=== PATIENT | female | born 1990 | race Caucasian/White ===

== ENCOUNTER → 2017-07-29 14:00 | Outpatient (CLI) | payer OTHER, SELFPAY ==
[2017-07-30 14:08] LABS: Chlamydia Trachomatis by PCR Negative (Negative); Neisserai gonorrhoeae by PCR Negative (Negative); Probe Check PASS; Sample Adequacy Control PASS; Specimen Processing Control PASS
[2017-08-01 14:28] LABS: HPV Reflexed? NOT INDICATED
== END ==
PROVIDERS: Visit Provider Obstetrics & Gynecology
DX: Z12.4 Encounter for screening for malignant neoplasm of cervix (principal); Z11.3 Encounter for screening for infections with a predominantly sexual mode of transmission
CPT/HCPCS: 87491; 87591; 88175; G0145

== ENCOUNTER → 2018-01-27 14:00 | Outpatient (CLI) | payer OTHER, SELFPAY ==
[2018-01-28 11:39] LABS: Group B Strep DNA By PCR Negative (Negative); Internal Control PASS; Probe Check PASS; Specimen Processing Control PASS
== END ==
PROVIDERS: Visit Provider Obstetrics & Gynecology
DX: Z36.85 Encounter for antenatal screening for Streptococcus B (principal)
CPT/HCPCS: 87081; 87653

== ENCOUNTER 2018-02-18 07:05 | Inpatient (IN) | payer OTHER, SELFPAY ==
[2018-02-18 07:25] VITALS: BMI 28.9
[2018-02-18 08:08] LABS: Hematocrit 34.8 % (37-47); Hemoglobin 11.9 g/dl (12.0-15.0); Mean Corp Hgb Conc 34.2 g/gl (32-36); Mean Corpuscular Hgb 30.6 pg (27.0-32.0); Mean Corpuscular Volume 89.5 fL (81-99); Mean Platelet Vol. 10.3 fl (6.2-12.0); Platelet Count 276 K/mm3 (150-450); RBC Distribution Width CV 13.2 % (11.6-14.6); Red Blood Count 3.89 M/mm3 (4.2-5.4); White Blood Count 8.7 K/mm3 (4.4-11.0)
[2018-02-18 08:09] LABS: Scan Indicated on CBC? Y/N NO
[2018-02-18] MEDS: Lactated Ringers 1,000 ML 50 ML IV (08:23)
--- NOTE | 2018-02-18 12:29 | NURSING ---
1148 Mom ask to speak with me regarding her previous and low milk supply. We discussed making sure baby remains skin to skin and we could maybe do some follow up pumping either following feedings or every couple feedings to help with raising her prolactin levels. We also discussed prior breast massage and expression to help with this as well. We do our best to help with encouraging this Mother with her feeding needs. Jose LEON
[2018-02-18] MEDS: Oxytocin 30 units/NS 500 ml 30 UNITS/500 ML IV.SOLN IV (13:57)
[2018-02-18] MEDS: Oxytocin 30 units/NS 500 ml 30 UNITS/500 ML IV.SOLN 334 UNITS IV (17:21)
--- NOTE | 2018-02-18 17:31 | PCM.OB.VAG ---
Vaginal Delivery Maternal Presentation: Elective Induction Method of Induction: Pitocin, Amniotomy Amniotic Membrane Rupture Type: Artificial Amniotic Fluid Description: Lightly stained meconium Final LEONARDO: 02/24/18 Final LEONARDO Source: US <20 weeks Gestational age: 39 Weeks and 1 Days doctor who attended delivery (if requested by OB): Lata Pulido MNCara Date of Procedure: 02/18/18 Pre-Operative Diagnosis: IUP Post-Operative Diagnosis: IUP Surgery/ Procedure Performed: Spontaneous Vaginal Delivery Type of Anesthesia: None Description of Procedure: Spontaneous vaginal delivery of a viable male infant with Apgars of 8/9 from an occiput anterior presentation with light meconium stained fluid and normal three-vessel placenta. No episiotomy or laceration. Sponge counts okay. Delivery physician: Aamir Orellana MD. Presentation: Vertex Placental Delivery Description: Spontaneous Placenta Disposition: [facility] Cord Vessel Description: 3 Vessels Cord Entanglement: None Estimated Blood Loss: 250 cc Infant A gender: Male (1 minute): 8 (5 minute): 9 Episiotomy Description: None Laceration: None Medications given after delivery: IV Pitocin Complications: None
--- NOTE | 2018-02-18 17:36 | OP.PCM_ITS ---
Vaginal Delivery Maternal Presentation: Elective Induction Method of Induction: Pitocin, Amniotomy Amniotic Membrane Rupture Type: Artificial Amniotic Fluid Description: Lightly stained meconium Final LEONARDO: 02/24/18 Final LEONARDO Source: US <20 weeks Gestational age: 39 Weeks and 1 Days doctor who attended delivery (if requested by OB): Lata Pulido NMCara Date of Procedure: 02/18/18 Pre-Operative Diagnosis: IUP Post-Operative Diagnosis: IUP Surgery/ Procedure Performed: Spontaneous Vaginal Delivery Type of Anesthesia: None Description of Procedure: Spontaneous vaginal delivery of a viable male infant with Apgars of 8/9 from an occiput anterior presentation with light meconium stained fluid and normal three-vessel placenta. No episiotomy or laceration. Sponge counts okay. Delivery physician: Aamir Orellana MD. Presentation: Vertex Placental Delivery Description: Spontaneous Placenta Disposition: [facility] Cord Vessel Description: 3 Vessels Cord Entanglement: None Estimated Blood Loss: 250 cc Infant A gender: Male (1 minute): 8 (5 minute): 9 Episiotomy Description: None Laceration: None Medications given after delivery: IV Pitocin Complications: None
--- NOTE | 2018-02-18 17:42 | PCM.DCVAG ---
Discharge Diet: No Restrictions Discharge Activity: May Shower, May Take a Tub Bath May resume sexual activity in: 4-6 weeks Additional Activity Instructions:: Nothing in the vagina for 4-6 weeks. You may return to work/school in 6 weeks. Call your doctor if you observe: Fever of 101 or Higher, Inability to urinate, Inability to have a bowel movement, Using more than one pad per hour Additional Instructions: If you experience any of the following, contact your healthcare provider. Bleeding that soaks a pad every hour for 2 hours Unrelieved incision or abdominal pain Swelling, redness, discharge or bleeding from your incision or episiotomy site Your incision begins to separate Problems urinating (including inability to urinate or burning while urinating). Visual changes Severe headache Flu-like symptoms Pain or redness in one of both of your breasts Pain, warmth, tenderness or swelling in your legs, especially the calf area Frequent nausea and vomiting Symptoms of depression or anxiety If you experience any of the following, call 911 or go to the nearest Emergency Room. Chest pain Problems breathing Seizure activity Partial or complete paralysis of a body part, slurred speech, weakness or drooping of the face, or a sudden inability to walk or hold your balance Allergies/Adverse Reactions: Allergies No Known Allergies Allergy (Verified 08/28/15 12:15) Medications to take at Discharge Vits [Prenatabs FA] 1 tablet PO DAILY 02/18/18 Please Follow Up With: Aamir Orellana MD - [phone] When: Call to make an appointment with your doctor in 6 weeks. Primary Care Physician: Aamir Kellogg [Primary Care Provider] - Test Results: Test results from this visit will be discussed in further detail at your follow-up appointment, if applicable.
--- NOTE | 2018-02-18 17:44 | DCINST_ITS ---
Discharge Diet: No Restrictions Discharge Activity: May Shower, May Take a Tub Bath May resume sexual activity in: 4-6 weeks Additional Activity Instructions:: Nothing in the vagina for 4-6 weeks. You may return to work/school in 6 weeks. Call your doctor if you observe: Fever of 101 or Higher, Inability to urinate, Inability to have a bowel movement, Using more than one pad per hour Additional Instructions: If you experience any of the following, contact your healthcare provider. * Bleeding that soaks a pad every hour for 2 hours * Unrelieved incision or abdominal pain * Swelling, redness, discharge or bleeding from your incision or episiotomy site * Your incision begins to separate * Problems urinating (including inability to urinate or burning while urinating). * Visual changes * Severe headache * Flu-like symptoms * Pain or redness in one of both of your breasts * Pain, warmth, tenderness or swelling in your legs, especially the calf area * Frequent nausea and vomiting * Symptoms of depression or anxiety If you experience any of the following, call 911 or go to the nearest Emergency Room. * Chest pain * Problems breathing * Seizure activity * Partial or complete paralysis of a body part, slurred speech, weakness or drooping of the face, or a sudden inability to walk or hold your balance Allergies/Adverse Reactions: Allergies No Known Allergies Allergy (Verified 08/28/15 12:15) Medications to take at Discharge Vits [Prenatabs FA] 1 tablet PO DAILY 02/18/18 Please Follow Up With: Aamir Orellana MD - [phone] When: Call to make an appointment with your doctor in 6 weeks. Primary Care Physician: Aamir Kellogg [Primary Care Provider] - Test Results: Test results from this visit will be discussed in further detail at your follow- up appointment, if applicable.
[2018-02-18] MEDS: Oxytocin 30 units/NS 500 ml 30 UNITS/500 ML IV.SOLN 167 UNITS IV (17:51)
[2018-02-19] VITALS (7 sets, daily range): BP systolic 104–116; BP diastolic 57–73; PULSE 64–81; RESP 14–16; TEMP 36.9–37.6; O2SAT 97–98
--- NOTE | 2018-02-19 09:27 | PCM.PN.OB ---
Subjective: Patient without complaints. Breast-feeding going well. Wants to go home later today if baby is able to go. - Physical Exam Vital Signs Temp Pulse Resp BP Pulse Ox 99.5 F H 68 14 116/61 98 02/19/18 08:44 02/19/18 08:44 02/19/18 08:44 02/19/18 08:44 02/19/18 08:44 Oxygen Delivery Method Room Air Weight: 174 lb Body Mass Index (BMI) 28.9 Intake and Output for Last 24 Hours 02/17/18 02/18/18 02/19/18 23:59 23:59 23:59 Output Total 825 / 825 Balance -825 / -825 Minimal vaginal bleeding. Fundus is firm. Medical Necessity - Tobacco Use Smoking Status: Never smoker Assessment/Plan Doing well day #1. Will release to home with routine instructions.
== END 2018-02-19 18:50 | disposition home or self-care (01) | DRG 775 ==
PROVIDERS: Admitting Provider Obstetrics & Gynecology; Family Provider Family Medicine; PCP Family Medicine; Referring Provider Obstetrics & Gynecology; Visit Provider Obstetrics & Gynecology
DX: O77.0 Labor and delivery complicated by meconium in amniotic fluid (principal); Z37.0 Single live birth; Z3A.39 39 weeks gestation of pregnancy
CPT/HCPCS: 59025; 59050; 85027; 86850; 86900; 99218; J7120; 90686; G0378

== ENCOUNTER 2020-01-29 19:22 | Emergency (ER) | payer OTHER, SELFPAY ==
[2020-01-29 19:23] VITALS: BP 132/73; PULSE 85; RESP 17; TEMP 36.3; O2SAT 100; BMI 26.1
--- NOTE | 2020-01-29 19:30 | ED.VIS.GEN ---
History of Present Illness Chief Complaint: Laceration Informant: Patient Onset: Today Current Severity: Mild Maximum Severity: Mild Narrative: She presents with laceration to the left fifth finger. She was drying dishes. She dropped a dish and caught it, but it still shattered lacerating her left fifth finger. She is right-hand dominant. She is unsure of her last tetanus update. Past Medical History - Allergies and Home Meds Allergies/Adverse Reactions: Allergies No Known Allergies Allergy (Verified 01/29/20 19:22) Primary Care Physician: Aamir Kellogg MD [Primary Care Provider] - Past Medical History: None Lives: With Family Smoking Status: Never smoker Review of Systems General: Denies: Chills, Fever Eyes: Denies: Visual changes - bilaterally ENT: Denies: Bilateral ear pain Cardiovascular: Denies: Chest pain Respiratory: Denies: Dyspnea, Cough Gastrointestinal: Denies: Abdominal pain Musculoskeletal: Reports: Extremity Pain Skin: Reports: Wounds - Finger laceration Neurological: Denies: Headache, Parasthesia Hematologic: Denies: Easy bruising, Easy bleeding Allergy: Denies: Uticaria Physical Exam Vital Signs/Narrative: Vital Signs Temp Pulse Resp BP Pulse Ox 01/29/20 19:23 97.4 F L 85 17 132/73 H 100 Inital Vital Signs reviewed: Yes General: Well nourished, Well developed Head: Normocephalic ENT: Moist mucous membranes Cardiovascular: Regular rate, Regular rhythm Respiratory: No distress Abdomen: Soft Extremities: - - 1 cm laceration over the palmar aspect of the left fifth finger at the DIP joint. Full range of motion is noted. She does have good sensation distally with normal cap refill. Neurological: Alert, Oriented x3, Normal Strength, Normal Sensation Psychological: Normal affect Diagnostic/Tx/Re-eval - Medical Decision Making Tetanus update is provided. Left fifth finger digital block was performed with 2 cc of 1% lidocaine. Wound is cleansed and irrigated. Skin is closed with 3 simple interrupted sutures of 5-0 nylon. Wound is dressed and wound care is discussed. Patient will return in 1 week for suture removal. Procedures - Lacerations No standard instances Length: 0.39 in Depth: Sub Q Laceration repair: Digital block, Lidocaine Suture Information: Ethilon, Simple, 5-0 ED Disposition - Plan for ED Patient: Disposition: Home or Assisted Living Diagnosis: Finger laceration Instructions: ED Laceration Hand Referrals: Aamir Kellogg MD [Primary Care Provider] - 7 Days for suture removal
[2020-01-29] MEDS: Diphth,Pertuss(Acell),Tet Vac 0.5 ML Vial IM (19:49)
== END 2020-01-29 20:15 | disposition home or self-care (01) ==
PROVIDERS: Emergency Provider Emergency Medicine; PCP Family Medicine
DX: S61.217A Laceration without foreign body of left little finger without damage to nail, initial encounter (principal); W26.8XXA Contact with other sharp object(s), not elsewhere classified, initial encounter; Y93.9 Activity, unspecified; Y92.9 Unspecified place or not applicable
CPT/HCPCS: 12001; 90471; 90715; 96374; 96375; 99282

== ENCOUNTER 2024-12-03 17:14 | Emergency (ER) | payer OTHER, SELFPAY ==
[2024-12-03 17:15] VITALS: BP 117/66; PULSE 91; RESP 18; TEMP 37; O2SAT 99; BMI 26.6
--- NOTE | 2024-12-03 17:26 | EDS_ITS ---
HPI <LUIS Jameson - Last Filed: 12/03/24 19:07> History of Present Illness Chief Complaint: Laceration Narrative Narrative: 34-year-old female presents with a left hand injury. She was mowing the lawn and states she touched the blade before it fully stopped. There are lacerations of the index, middle, and ring fingers. She has no weakness or numbness or tingling. She is right-hand dominant.Tetanus was last updated January 2020. PFSH <LUIS Jameson - Last Filed: 12/03/24 19:07> [facility] Medical History no medical history Home Medications ?Medication ?Instructions ?Recorded ?Last Taken ?Type cephalexin 500 mg capsule 500 mg PO BID 7 days #14 cap s 12/03/24 Unknown Rx hydrocodone-acetaminophen 5-325mg 1 tab PO Q6H PRN PRN Pain 2 days 12/03/24 Unknown Rx 5mg-325mg #8 TABLETS ibuprofen 600 mg tablet 600 mg PO Q6H PRN PRN pain # 20 12/03/24 Unknown Rx TABLETS Allergy/AdvReac Type Severity Reaction Status Date / Time No Known Allergies Allergy Verified 12/03/24 17:16 Surgical History no surgical history Social History Smoking Status: Never smoker EXAM <LUIS Jameson - Last Filed: 12/03/24 19:07> Physical Exam Narrative Exam Narrative: CONST: Patient sitting in no acute distress. EYES: Normal inspection. EXTREMITIES: Left hand: Abrasion on the tip of the index finger that does not require repair. 1 cm laceration over the middle proximal phalanx. 2 cm laceration over the mi ddle distal phalanx. These are to the level of the subcutaneous tissue and have no tendon or bone involvement. 3 cm irregular and macerated laceration on the left ring finger on the middle and distal phalanges. No visible tendon or bone. Normal motor and sensory function in median radial and ulnar distributions. 2+ radial pulse. Brisk cap refill in all digits. 2 point discrimination intact in the ring finger. NEURO: Alert and answering questions appropriately. PSYCH: Normal affect. Const Vital Signs: 12/03/24 17:15 12/03/24 19:27 Temperature 98.6 F 98.6 F Temperature Source Oral Pulse Rate 91 74 Respiratory Rate 18 18 Blood Pressure 117/66 112/67 Blood Pressure Mean 83 82 Pulse Ox 99 100 Oxygen Delivery Method Room Air <Dr. Tony Hills MD - Last Filed: 12/03/24 22:19> Physical Exam Const Vital Signs: 12/03/24 17:15 12/03/24 19:27 Temperature 98.6 F 98.6 F Temperature Source Oral Pulse Rate 91 74 Respiratory Rate 18 18 Blood Pressure 117/66 112/67 Blood Pressure Mean 83 82 Pulse Ox 99 100 Oxygen Delivery Method Room Air PROC <LUIS Jameson - Last Filed: 12/03/24 19:07> Procedures Lacerations Left middle finger : Length: 1.18 in Depth: Skin Shape: Linear Laceration repair: Wound explored Irrigated (ml): 100 Suture Information: Ethilon, Simple and 5-0 Comment: There are two separate lacerations. There is a 1 cm in the middle proximal phalanx I repaired with 1 simple interrupted suture. There is a 2 cm laceration on the middle distal phalanx repaired with 4 simple erupted suture of 5-0 Ethilon. Left ring finger: Length: 1.18 in Depth: Sub Q Shape: Irregular and macerated Prep: Sterile Conditions Laceration repair: Digital block, Irrigated, Lidocaine and Wound explored Irrigated (ml): 200 Number of Sutures/[place]: 6 Suture Information: Ethilon, Simple and 4-0 Comment: After digital block and irrigation wound was explored and there is no sign of tendon injury. I approximated the wound as best as possible with 4-0 Ethilon. [facility] <LUIS Jameson - Last Filed: 12/03/24 19:07> [facility] Narrative Medical decision making narrative: Differential includes finger laceration versus open fracture 34-year-old [id number] female presents with left hand lacerations. The ring finger has the most severe laceration that is macerated. The rings were cut off and there is a small abrasion under the ring area that does not need repair. I performed digital blocks of the middle and ring fingers. I repaired the distal ring finger laceration with 6 sutures and 2 separate middle finger lacerations with 1 and 3 sutures each, respectively. Her tetanus is already up-to-date. X-ray showed a distal fourth phalanx fracture so she was placed on Keflex with first dose given here. I discussed wound care and provided a referral to Dr. Kearns for wound recheck. She was discharged in stable condition. I have personally performed a face to face assessment of the patient and have reviewed the BENITO Note. I performed a substantive portion of the visit including all aspects of the following. My lemos findings include: History is remarkable for patient sticking her hand in the lawn more prior to the blade stopping. She stated laceration to her index, long and ring finger. Patient is wearing multiple rings on her ring finger. These were cut off. She already had significant swelling. She has lacerations which will require repair. Exam is the extensor commonness and extensor indices tendon are functionally intact. There is no subungual hematoma of her index, long, ring or little finger. Median, radial and ulnar function intact. Laceration to be sewn by midlevel. She has normal to point discrimination. Medical Decision Making x-ray was obtained to evaluate for fracture. Also to evaluate for foreign body. Other additions or changes: Patient will receive antibiotics and refer to Dr. Randy Kearns for follow-up and definitive care if needed Radiography Diagnostic Testing: Clinical Impression(s) from Imaging Studies Hand X-Ray 12/03/24 17:30 IMPRESSION: Acute nondisplaced fracture of the 4th distal phalanx base. Reading Location: [facility] ED attending interpretation of left hand x-ray shows a fracture of the ring finger distal phalanx. <Dr. Tony Hills MD - Last Filed: 12/03/24 22:19> [facility] Narrative Medical decision making narrative: I have personally performed a face to face assessment of the patient and have reviewed the BENITO Note. I performed a substantive portion of the visit including all aspects of the following. My lemos findings include: History is remarkable for patient sticking her hand in the lawn more prior to the blade stopping. She stated laceration to her index, long and ring finger. Patient is wearing multiple rings on her ring finger. These were cut off. She already had significant swelling. She has lacerations which will require repair. Exam is the extensor commonness and extensor indices tendon are functionally intact. There is no subungual hematoma of her index, long, ring or little finger. Median, radial and ulnar function intact. Laceration to be sewn by midlevel. She has normal to point discrimination. Medical Decision Making x-ray was obtained to evaluate for fracture. Also to evaluate for foreign body. Other additions or changes: Patient will receive antibiotics and refer to Dr. Randy Kearns for follow-up and definitive care if needed Radiography Chest X-Ray - ED: Read by ED Physician (Three-view x-ray of the left hand was obtained since she injured multiple fingers. She has a nondisplaced fracture base of the distal phalanx left ring finger. There is no foreign body noted. There is no other abnormality noted.) Diagnostic Testing: Clinical Impression(s) from Imaging Studies Hand X-Ray 12/03/24 17:30 IMPRESSION: Acute nondisplaced fracture of the 4th distal phalanx base. Reading Location: [facility] Discharge Plan Triage Chief Complaint: Laceration ED Midlevel Provider: Selene Rivas ED Provider: Tony Hills Dx/Rx/DC Orders Clinical Impression: Open fracture of phalanx of left ring finger, Abrasion of left index finger, Laceration of left middle finger Instructions: ED Laceration Extremity Prescriptions: New cephalexin 500 mg capsule 500 mg PO BID 7 Days Qty: 14 0RF ibuprofen 600 mg tablet 600 mg PO Q6H PRN PRN (Reason: pain) Qty: 20 0RF hydrocodone-acetaminophen 5-325 mg tablet 1 tab PO Q6H PRN PRN (Reason: Pain) 2 Days Qty: 8 0RF Primary Care Provider: Aamir Kellogg Referrals: Aamir Kellogg MD [Primary Care Provider] - Randy Kearns MD [Med Staff - Active Staff] - Activity Restrictions/Additional Instructions: You can shower but do not submerge underwater. Pat dry, apply bacitracin and a bandage. Follow-up with the plastic surgeon to have it rechecked. I prescribed antibiotics since there is a broken bone. If you have any signs of infection like significant redness, swelling, pus, increased fever or pain please be seen immediately. Print Language: Frisian Disposition Disposition: Home, Self Care Discharge Date/Time: 12/03/24 19:27
--- NOTE | 2024-12-03 17:30 | RAD_ITS ---
PROCEDURE: HAND MIN 3 VIEWS 12/03/2024 REASON FOR EXAM: INJURY/PAIN TECHNIQUE: HAND MIN 3 VIEWS COMPARISON: None. FINDINGS: Acute nondisplaced fracture at the ulnar aspect of the 4th distal phalanx base, without definite intra-articular extension. No additional acute fracture or dislocation is seen. Preserved joint spaces. Alignment is anatomic. Normal bone mineralization. Mild soft tissue swelling about the 4th digit. RAD/Hand Min 3 Views IMPRESSION: Acute nondisplaced fracture of the 4th distal phalanx base. Reading Location: [id number]
[2024-12-03] MEDS: Lidocaine 1% (20 ml mdv) 20 ML Vial INFILT (17:37)
[2024-12-03 19:27] VITALS: BP 112/67; PULSE 74; RESP 18; TEMP 37; O2SAT 100
== END 2024-12-03 19:27 | disposition home or self-care (01) ==
PROVIDERS: Emergency Provider Emergency Medicine; PCP Family Medicine; Visit Provider Emergency Medicine
DX: S62.665A Nondisplaced fracture of distal phalanx of left ring finger, initial encounter for closed fracture (principal); S60.411A Abrasion of left index finger, initial encounter; S61.213A Laceration without foreign body of left middle finger without damage to nail, initial encounter; W28.XXXA Contact with powered lawn mower, initial encounter; Y93.89 Activity, other specified
CPT/HCPCS: 12002; 73130; 99284

== ENCOUNTER → 2024-12-30 | Outpatient (CLI) | payer OTHER, SELFPAY ==
--- NOTE | 2024-12-30 08:18 | RAD_ITS ---
PROCEDURE: HAND MIN 3 VIEWS 12/30/2024 REASON FOR EXAM: FRACTURE TECHNIQUE: HAND MIN 3 VIEWS COMPARISON: Left hand study of 12/14/2024. RAD/Hand Min 3 Views IMPRESSION: Stable alignment of the intra-articular fracture of the left 4th distal phalanx . No new abnormality is noted. Reading Location: [place] [id number]
--- NOTE | 2024-12-30 08:18 | RAD_ITS ---
PROCEDURE: HAND MIN 3 VIEWS 12/30/2024 REASON FOR EXAM: FRACTURE TECHNIQUE: HAND MIN 3 VIEWS COMPARISON: Left hand study of 12/14/2024. RAD/Hand Min 3 Views IMPRESSION: Stable alignment of the intra-articular fracture of the left 4th distal phalanx . No new abnormality is noted. Reading Location: [place] [id number]
--- OUTSIDE RECORDS SUMMARY | 2024-12-30 08:48 | XMS RPT_ITS | CCD ---
Author Organization [facility] Care Team Providers Care Medical Associate Name Role Phone SAVANNA, LUKE Admitting Unavailable SAVANNA, LUKE Primary Care Unavailable SAVANNA, LUKE Attending Unavailable VACCARIJIM VELÁSQUEZ Consulting Unavailable PROVIDER, UNKNOWN Consulting Unavailable PROVIDER, UNKNOWN Consulting Unavailable PROVIDER, UNKNOWN Consulting Unavailable SAVANNA, LUKE Admitting Unavailable SAVANNA, LUKE Primary Care Unavailable SAVANNA, LUKE Attending Unavailable VACCARIELLO, JIM Consulting Unavailable PROVIDER, UNKNOWN Consulting Unavailable PROVIDER, UNKNOWN Consulting Unavailable PROVIDER, UNKNOWN Consulting Unavailable Unavailable Primary Care Provider Unavailabl Jim Vega MD Unavailable ENT Provider Unavailable Unavailable Amy Brody MD Unavailable Joanie GANNON, Erika Unavailable Rodo DE JESUS, Nadia Bee Unavailable Kristofer Malagon MD Unavailable Bebe Manley MA Unavailable Unavailable Ericka Perez PA-C Unavailable Barak Corrales PA-C Unavailable Gabriella Duvall MA Unavailable Unavailable Adriana Omalley LPN Unavailable Unavailable Ericka Kovacs RN Unavailable UnavailGeorgina Suazo RN Unavailable Daniela Cantu PA-C Unavailable [phone] Franci Valera LPN Unavailable Unavailab alhaji Smith LPN, Esperanza Martinez Unavailable Unavailab alhaji Chauhan LPN, Ragini Unavailable Unavailable Unavailable Unavailable Belkis Corrales Unavailable Unavailable Shahid CONTE, Myriam Unavailable Unavailable Bess CORTES, Dr. Rutledge Primary Care Provider Dr. Tony Hills MD Emergency Provider Bess CORTES, Dr. Rutledge Referring Provider Dr. Randy Kearns MD Attending Provider Dr. Tony Hills MD Attending Provider Juan Jose CORTES, Dr. Callahan Attending Provider London Ingram Attending Unavailable Bess, Jim Primary Care Unavailable Bess, Jim Referring Unavailable Bess, Jim Primary Care Unavailable Randy Kearns Attending Unavailable Bess, Jim Primary Care Unavailable Tony Hills Attending Unavailable Bess, iJm Primary Care Unavailable Vaccpatricia, Jim Referring Unavailable Randy Kearns Attending Unavailable Bess, Jim Referring Unavailable Urmila, Randy Attending Unavailable Bess, Jim Primary Care Unavailable Medications Current Medications Medication Drug Class(es) Dates Sig (Normalized) Sig (Original) acetaminophen 325 mg / HYDROcodone bitartrate 5 mg oral tablet (20 sources) Opioid Agonist Start: 12-03-2024 take 1 tablet by mouth every six hours as needed for pain Hydrocodone-Aceta minophen 5-325 mg tablet Active 1 {tbl} PO EVERY 6 HOURS NEEDED as needed for Pain 8 2 0 December 03, 2024 Open fracture of phalanx of left ring finger Start: 07-05-2014 End: 09-01-2014 take 1-2 tablets by mouth every four hours as needed for pain HYDROCODONE-ACETAMINOPHEN, 5-325MG (Oral Tablet) ; 1-2 Tablet Tablet q4h, prn severe pain for 0 days Quantity: 8 {Tablet} Refills: 0 Ordered: 01-Sep-2014 Start: 05-Jul-2014 End: 01-Sep-2014 Status: Inactive ibuprofen 600 mg oral tablet (6 sources) Nonsteroidal Anti-inflammatory Drug Start: 12-03-2024 take 1 tablet by mouth every six hours as needed for pain Ibuprofen 600 mg tablet Active 600 mg PO EVERY 6 HOURS NEEDED as needed for pain 20 0 December 03, 2024 12:00am triamcinolone acetonide 1 mg/ml topical cream (20 sources) Corticosteroid Start: 11-29-2024 End: 12-03-2024 triamcinolone acetonide 0.1 % topical cream ; 1 (one) Application two times daily for 0 days Quantity: 80 {Gram} Refills: 1 Ordered: 03-Dec-2024 NEAL Koehler Start: 03-Dec-2024 Start: 11-21-2014 End: 02-15-2015 TRIAMCINOLONE ACETONIDE, 0.0 25% (External Cream) ; 1 (one) application(s) four times daily for 0 days Quantity: 80 {Gram} Refills: 1 Ordered: 15-Feb-2015 JAGDEEP Nair Start: 21-Nov-2014 End: 15-Feb-2015 Status: Inactive Start: 12-18-2011 End: 04-27-2013 TRIAMCINOLONE ACETONIDE, 0.1 % (External Cream) ; 1 application(s) to affected areas QID for 0 days Quantity: 60 {gram(s)} Refills: 0 Ordered: 27-Apr-2013 EDWARD Sandy Start: 18-Dec-2011 End: 27-Apr-2013 Status: Inactive Completed/Discontinued Medications Medication Drug Class(es) Dates Sig (Normalized) Sig (Original) [id number] 200 actuat albuterol 0.09 mg/actuat metered dose inhaler (20 sources) beta2-Adrenergic Agonist Start: 06-13-2021 End: 11-11-2022 take 2 puff(s) by inhalation every four to six hours as needed Ventolin HFA 108 (90 Base) MCG/ACT Inhalation Aerosol Solution ; 2 (two) puff(s) every 4-6hrs prn for 0 days Quantity: 1 {Each} Refills: 0 Ordered: 11-Nov-2022 EDWARD Kovacs Start: 13-Jun-2021 End: 11-Nov-2022 Status: Inactive Start: 12-11-2010 End: 04-27-2013 PROAIR HFA, 108 (90 Base)MCG /ACT (Inhalation Aerosol Solution) ; 2 puffs Aerosol Soln every four hours, as needed for 0 days Quantity: 1 {HFA} Refills: 5 Ordered: 27-Apr-2013 EDWARD Sandy Start: 11-Dec-2010 End: 27-Apr-2013 Status: Inactive Dispense as Written Comments: Medication taken as needed. has not needed for over a year Comment on above: Medication taken as needed. has not needed for over a year amoxicillin 500 mg oral tablet (20 sources) Penicillin-class Antibacterial Start: End: take 2 tablets by mouth twice daily Amoxicillin 500 MG Oral Tablet ; 2 (two) Tablet bid for 0 days Quantity: 40 {Tablet} Refills: 0 Ordered: 28-Jun-2019 JAGDEEP Chauhan Start: 03-Nov-2017 End: 28-Jun-2019 Status: Inactive Start: 01-09-2011 End: 01-19-2011 take 1 tablet by mouth three times daily AMOXICILLIN, 500MG (Oral Tablet) ; 1 Tab three times daily for 10 days Quantity: 30 {Tab} Refills: 0 Ordered: 09-Jan-2011 NEAL Perez Start: 09-Jan-2011 End: 19-Jan-2011 Status: Inactive amoxicillin 875 mg / clavulanate 125 mg oral tablet (20 sources) Penicillin-class Antibacterial Start: 12-07-2024 End: 12-21-2024 Amoxicillin-Pot Clavulanate 875-125 mg tablet Discontinued 1 {tbl} PO Q12H 28 14 0 December 07, 2024 12:00am December 20, 2024 12:00am December 21, 2024 12:07am Start: 06-20-2021 End: 06-30-2021 take 1 tablet by mouth twice daily Amoxicillin-Pot Clavulanate 875-125 MG Oral Tablet ; 1 (one) Tablet BID for 10 days Quantity: 20 {Tablet} Refills: 0 Ordered: 20-Jun-2021 NEAL Corrales Start: 20-Jun-2021 End: 30-Jun-2021 Status: Inactive Start: 07-05-2014 End: 09-01-2014 take 1 tablet by mouth twice daily AMOXICILLIN-POT CLAVULANATE, 875-125MG (Oral Tablet) ; 1 (one) Tablet Tablet bid for 0 days Quantity: 14 {Tablet} Refills: 0 Ordered: 01-Sep-2014 Start: 05-Jul-2014 End: 01-Sep-2014 Status: Inactive cephalexin 500 mg oral capsule (20 sources) Cephalosporin Antibacterial Start: 12-03-2024 End: 12-07-2024 take 1 capsule by mouth twice daily Cephalexin 500 mg capsule Discontinued 500 mg PO TWICE A DAY 14 7 0 December 03, 2024 12:00am December 07, 2024 3:30pm Start: 09-01-2014 End: 11-21-2014 take 1 capsule by mouth three times daily CEPHALEXIN, 500MG (Oral Capsule) ; 1 (one) Capsule tid for 0 days Quantity: 30 {Capsule} Refills: 0 Ordered: 21-Nov-2014 Start: 01-Sep-2014 End: 21-Nov-2014 Status: Inactive doxycycline hyclate 100 mg oral capsule (5 sources) Tetracycline-class Drug Start: 12-07-2024 End: 12-21-2024 take 1 capsule by mouth twice daily Doxycycline Hyclate 100 mg capsule Discontinued 100 mg PO TWICE A DAY 28 14 0 December 07, 2024 12:00am December 20, 2024 12:00am December 21, 2024 12:07am 21 day ethinyl estradiol 0.593206 mg/hr / etonogestrel 0.005 mg/hr vaginal system (14 sources) Progestin, Estrogen Start: 08-22-2013 End: 08-22-2013 NUVARING, 0.12-0.015MG/24 HR (Vaginal Ring) ; 1 Ring for 3 weeks, then off for 1 week for 0 days Quantity: 1 {Ring} Refills: 12 Ordered: 22-Aug-2013 MD Amy Brody Start: 22-Aug-2013 End: 22-Aug-2013 Status: Discontinued Ethinyl Estradiol / norgestimate (14 sources) Progestin, Estrogen Start: 08-22-2013 End: 05-16-2014 take 1 tablet by mouth once daily TRI-SPRINTEC, 0.18/0.215/0.25 MG-35 MCG (Oral Tablet) ; 1 (one) Tablet daily for 0 days Quantity: 1 {Package} Refills: 11 Ordered: 16-May-2014 JAGDEEP Nair Start: 22-Aug-2013 End: 16-May-2014 Status: Inactive 120 actuat fluticasone propionate 0.11 mg/actuat metered dose inhaler (14 sources) Corticosteroid Start: 11-25-2011 End: 04-27-2013 take 2 puff(s) by inhalation twice daily FLOVENT HFA, 110MCG/ACT (Inhalation Aerosol) ; 2 (two) puff(s) two times daily for 0 days Quantity: 1 {HFA} Refills: 3 Ordered: 27-Apr-2013 EDWARD Sandy Start: 25-Nov-2011 End: 27-Apr-2013 Status: Inactive methylPREDNISolone 4 mg oral tablet (14 sources) Corticosteroid Start: 12-24-2011 End: 12-30-2011 MEDROL (KRISTI), 4MG (Oral Tablet) ; 1 Tablet as directed on pack for 6 days Quantity: 1 {dose_pack} Refills: 0 Ordered: 24-Dec-2011 JAGDEEP Valeraity [place] Start: 24-Dec-2011 End: 30-Dec-2011 Status: Inactive oseltamivir 75 mg oral capsule (14 sources) Neuraminidase Inhibitor Start: 06-28-2019 End: 07-03-2019 take 1 capsule by mouth twice daily Tamiflu 75 MG Oral Capsule ; 1 (one) Capsule bid for 5 days Quantity: 10 {Capsule} Refills: 0 Ordered: 28-Jun-2019 MD Kristofer Malagon Start: 28-Jun-2019 End: 03-Jul-2019 Status: Inactive predniSONE 20 mg oral tablet (14 sources) Start: 11-21-2014 End: 02-15-2015 take 3 tablets by mouth once daily, then take 2 tablets by mouth once daily, then take 1 tablet by mouth once daily, then take 0.5 tablet by mouth once daily PREDNISONE, 20MG (Oral Tablet) ; 1 (one) Tablet as directed below for 0 days Quantity: 20 {Tablet} Refills: 0 Ordered: 15-Feb-2015 JAGDEEP Nair Start: 21-Nov-2014 End: 15-Feb-2015 Status: Inactive Comments: Take 3tabs qd for 3 days thenTake 2tabs qd for 3 days thenTake 1tab qd for 3 days thenTake 1/2tab qd for 4 days. Comment on above: Take 3tabs qd for 3 days thenTake 2tabs qd for 3 days thenTake 1tab qd for 3 days thenTake 1/2tab qd for 4 days. Formula Oral Tablet (14 sources) take 1 tablet by mouth once daily Formula Oral Tablet ; 1 daily Status: Inactive Problems Active Problems Problem Classification Problem Date Documented Date Episodic/Chronic Acute and chronic tonsillitis (20 sources) Tonsillitis; Translations: [Acute tonsillitis, unspecified] 01-29-2023 Episodic Administrative/social admission (20 sources) Issue of repeat prescriptions 06-28-2019 Episodic Allergic reactions (20 sources) Contact dermatitis and other eczema, unspecified cause; Translations: [Contact dermatitis] 11-21-2014 Episodic Asthma (20 sources) Mild intermittent asthma; Translations: [Mild intermittent asthma, uncomplicated] 01-29-2023 Chronic 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 Conditions associated with dizziness or vertigo (20 sources) Meniere's disease; Translations: [Meniere's disease, unspecified ear] 03-05-2024 Chronic Contraceptive and procreative management (20 sources) Unspecified contraceptive management; Translations: [Encounter for removal of intrauterine contraceptive device] 08-22-2013 Episodic Deficiency and other anemia (14 sources) Anemia; Translations: [Anemia, unspecified] 04-27-2013 Episodic Diabetes or abnormal glucose tolerance complicating ; childbirth; or the puerperium (20 sources) Hyperglycemic disorder in ; Translations: [Abnormal glucose complicating ] 06-28-2019 Episodic Fracture of upper limb (15 sources) Open fracture of phalanx of ring finger; Translations: [Fracture of unspecified phalanx of left ring finger, initial encounter for open fracture] Onset: 12-09-2024 12-03-2024 Episodic Genitourinary symptoms and ill-defined conditions (20 sources) Dysuria; Translations: [Dysuria] 06-28-2019 Episodic Immunizations and screening for infectious disease (20 sources) Need for prophylactic vaccination and inoculation against influenza 06-28-2019 Episodic Influenza (20 sources) Influenza; Translations: [Influenza due to unidentified influenza virus with other respiratory manifestations] 06-28-2019 Episodic Lymphadenitis (20 sources) Cervical lymphadenitis; Translations: [Nonspecific lymphadenitis, unspecified] 01-29-2023 Episodic Noninfectious gastroenteritis (20 sources) Gastroenteritis; Translations: [Noninfective gastroenteritis and colitis, unspecified] 06-28-2019 Episodic Open wounds of extremities (20 sources) Laceration of finger; Translations: [Laceration without foreign body of unspecified finger without damage to nail, initial encounter] Onset: 12-14-2024 01-30-2020 Episodic Other aftercare (20 sources) Removal of sutures done; Translations: [Encounter for removal of sutures] 02-07-2020 Episodic Other complications of (14 sources) complications 01-29-2023 Episodic Comment on above: None. Other complications of (20 sources) Missed miscarriage; Translations: [Missed ] 06-29-2014 Episodic Other connective tissue disease (20 sources) Pain of right calf; Translations: [Pain in right lower leg] 01-29-2023 Episodic Other ear and sense organ disorders (20 sources) Otalgia, left ear; Translations: [Otalgia, unspecified] 01-29-2023 Episodic Other lower respiratory disease (20 sources) Cough; Translations: [Cough] 01-29-2023 Episodic Other and delivery including normal (20 sources) Normal ; Translations: [Encounter for supervision of other normal , third trimester] 08-28-2015 Episodic Other screening for suspected conditions (not mental disorders or infectious disease) (20 sources) care status; Translations: [Encounter for screening of mother] 08-14-2015 Episodic Other upper respiratory infections (20 sources) Acute pharyngitis; Translations: [Acute pharyngitis, unspecified] 01-09-2011 Episodic Residual codes; unclassified (14 sources) Non-smoker; Translations: [Other specified health status] 01-29-2023 Episodic Residual codes; unclassified (14 sources) Gestation period, 38 weeks; Translations: [38 weeks gestation of ] 08-28-2015 Episodic Residual codes; unclassified (14 sources) Gestation period, 37 weeks; Translations: [37 weeks gestation of ] 08-23-2015 Episodic Residual codes; unclassified (14 sources) Gestation period, 36 weeks; Translations: [36 weeks gestation of ] 08-14-2015 Episodic Residual codes; unclassified (20 sources) Gestation period, 33 weeks; Translations: [33 weeks gestation of ] 07-26-2015 Episodic Residual codes; unclassified (14 sources) Gestation period, 30 weeks; Translations: [30 weeks gestation of ] 07-03-2015 Episodic Residual codes; unclassified (14 sources) Gestation period, 26 weeks; Translations: [26 weeks gestation of ] 06-06-2015 Episodic Spontaneous (14 sources) Miscarriage; Translations: [Complete or unspecified spontaneous without complication] 07-08-2014 Episodic Superficial injury; contusion (14 sources) Abrasion of left index finger; Translations: [Abrasion of left index finger, initial encounter] Onset: 12-14-2024 12-03-2024 Episodic Unclassified (14 sources) 1st weight 01-29-2023 Comment on above: 6-8. Unclassified (14 sources) 1st date of delivery Onset: 02-16-2008 01-29-2023 Unclassified (14 sources) 1st gestational age 0901-29-2023 Comment on above: 37. Unclassified (14 sources) 2nd gestational age 0901-29-2023 Comment on above: 16 wk IUFD. Unclassified (14 sources) Abortions, spontaneous Onset: 05-26-2014 01-29-2023 Comment on above: 1. Unclassified (14 sources) Delivery complications (1st) 01-29-2023 Comment on above: None. Unclassified (14 sources) Delivery mode (1st) 01-29-2023 Comment on above: Vaginal delivery. Unclassified (14 sources) Father of baby (1st) 01-29-2023 Comment on above: Rafa Koenig. Unclassified (14 sources) Gender (1st) 01-29-2023 Comment on above: Male. Unclassified (14 sources) Labor complications (1st) 01-29-2023 Comment on above: None. Unclassified (14 sources) Length of labor (1st) 01-29-2023 Comment on above: 8. Unclassified (14 sources) Number of Children 01-29-2023 Comment on above: 2. 3. Unclassified (14 sources) Number of fetuses (1st) 01-29-2023 Comment on above: 1. Unclassified (14 sources) Number of Pregnancies 01-29-2023 Comment on above: 4. Unclassified (14 sources) Vaginal deliveries 01-29-2023 Comment on above: 2. Unclassified (14 sources) Well Adult, female - The patient feels well with no complaints (She would like to have her mirena removed, it has been in place for 5 years this month), has good energy level and is sleeping well. The first day of the last menstrual period was : (04/08-). The patient has a balanced diet and takes supplemental vitamins. The patient exercises none (nothing regular, but is very active). 04-27-2013 Unclassified (14 sources) Well Adult, female - The patient feels well with no complaints, has good energy level and is sleeping well. The first day of the last menstrual period was : (10/31/11). The current method of contraception is: intrauterine device (placed 04/2008). The patient has a balanced diet. Patient exercises none (nothing regular but is active). 11-15-2011 Viral infection (14 sources) Varicella 01-29-2023 Episodic Comment on above: childhood Past or Other Problems Problem Classification Problem Date Documented Da te Episodic/Chronic Unclassified (14 sources) Ear pain - The onset of the pain has been gradual and has been occurring in a persistent pattern for 1 month. The course has been constant. The pain is described as a mild dull aching, pressure and plugged. The pain is described as being located in the inner ear. The pain is felt in the left ear. The symptoms have been associated with decreased hearing (Reports that sounds are muffled in this ear), inability to 'pop' ear drum and vertigo (Patient has noted some dizziness over the last 2-3 weeks, most often when she turns her head quickly or rolls over in bed), while the symptoms have not been associated with chills, fever, non-purulent discharge from ear, purulent discharge from ear, sore throat, runny nose, cough or tinnitus. Medical History does not include ear infections, seasonal allergies or recurrent sinusitis. Note for Ear pain: Patient has tried several weeks of Flonase and Zyrtec without relief of symptoms. 01-29-2023 Unclassified (14 sources) Leg pain - The leg pain began suddenly and has been occurring for 9 days (Patient was at [facility], walking on the sand. All of a sudden, she felt a pop of her calf. She had difficulty walking afterwards. She had to lean on other people to help her walk. Gradually improved but then she has had two other times since then that her calf has popped and had severe pain. The calf pain increases with walking, specifically when walking with her heel down.). The symptoms have been occurring in a persistent pattern. The symptoms are described as a cramping and are moderate to severe. There is involvement of the right calf. Aggravating factors include walking (is more painful to go down stairs and to walk incline). Relief is provided by rest. The symptoms have been associated with calf swelling (slightly), while the symptoms have not been associated with blurred vision, chest pain, dizziness or numbness and tingling in toes. 11-11-2022 Unclassified (14 sources) Sore throat - The onset of the sore throat has been sudden and has been occurring in an increasing pattern for 3 days. The course has been gradually worsening. The sore throat is described as moderate. The sore throat was not precipitated by exposure to a person with strep pharyngitis or exposure to a person with a viral illness. Symptoms include sore throat, runny nose, nasal congestion, cough (dry cough) and ear pain (Pressure and popping in both ears, worse in the right ear), but do not include fever or headache. The symptoms are aggravated by swallowing. There are no relieving factors. Medical history includes tonsillectomy, but does not include recurrent strep pharyngitis. Note for Sore throat: Patient reports having swollen glands in her neck on the right side.She has tried OTC Zyrtec without relief of symptoms. 10-22-2022 Unclassified (14 sources) Cold Symptoms - Symptoms include ear pain, sore throat, dry cough, productive cough and facial pain, but do not include nasal congestion, runny nose, fever, chills, general malaise or headache. The onset was gradual 3 week(s) ago. The symptoms occur frequently (pt said she will feel better and thinks its gone then the cough comes right back). The patient describes this as mild and worsening. Current treatment includes non-prescription cold medication (alkaselzer, Tylenol cold and flu,mucinex). Risk factors do not include smoking. The patient has been exposed to an individual with similar symptoms (3 boys at home e same thing). Medical history includes asthma, but patient denies history of seasonal allergies, recurrent sinusitis, recurrent strep pharyngitis, tonsillectomy or recurrent ear infections. Note for Upper respiratory infection: right side of neck is swollen- for 2 days 06-13-2021 Unclassified (14 sources) Cold Symptoms - Symptoms include ear pain, ear fullness, sore throat, scratchy throat, dry cough, fever, chills, general malaise, headache and facial pain, but do not include nasal congestion or runny nose. The onset was 1 day(s) ago. The symptoms occur constantly. Current treatment includes non-prescription cold medication and an oral decongestant. Note for Upper respiratory infection: reviewed by B 06-28-2019 Unclassified (14 sources) Cold Symptoms - Symptoms include ear pain (right side) and sore throat (right side). The onset was gradual 1 month(s) ago. The patient describes this as moderate in severity. Current treatment includes allergy medications. Risk factors do not include smoking. Note for Upper respiratory infection: -Currently 23 w 6 d . 11-03-2017 Unclassified (14 sources) Vomiting - Symptoms include nausea, vomiting and abdominal pain. Onset was sudden 12 hour(s) ago. The episodes occur 1 time(s) a day and last for hours. The patient describes this as unchanged. Note for Vomiting: Saw Dr Orellana and he mentioned going on Tamiflu. reviewed by B 08-26-2017 Unclassified (14 sources) visit - The patient is here for a 37 week visit. 08-23-2015 Unclassified (14 sources) visit - The patient is here for a 36 week visit. 08-14-2015 Unclassified (20 sources) visit - The patient is here for a 33 week visit. 07-26-2015 Unclassified (14 sources) visit - The patient is here for a 26 week visit. 06-06-2015 Unclassified (14 sources) visit - The patient is here for a 18 week visit. 04-12-2015 Unclassified (14 sources) visit - The patient is here for a 14 week visit. 03-15-2015 Unclassified (14 sources) visit (initial) - The patient suspects she is due to a positive home test. Last menstrual period: 10 weeks ago. - (3) Parity - (1). Vaginal bleeding is described as spotting. 02-16-2015 Unclassified (14 sources) Rash - The onset of the rash has been acute and has been occurring in a persistent pattern for 4 days. The course has been increasing. The rash is characterized as red, weeping, raised above the skin and grouped in crops. The rash was first seen on the neck. It spread to the face, the neck (increased) and the upper extremity. There has been associated itching, pain (neck at times), erythema and edema. There has been no associated fever or mucous membrane lesions. Note for Rash: Pt had rx triamcinolone from a previous reaction and has been using that with some improvement. Pt. ran out of cream. 11-21-2014 Unclassified (14 sources) Cold Symptoms - Symptoms include runny nose, ear fullness (itchy) and sore throat, but do not include fever or headache. The onset was sudden 1 day(s) ago. The symptoms occur frequently. The patient describes this as mild and unchanged. Current treatment includes NSAIDs (aleve). Risk factors do not include smoking. The patient has not been exposed to an individual with similar symptoms. Patient denies history of seasonal allergies. 09-01-2014 Unclassified (14 sources) Post-operative - Patient is 1 week post-operative. Note for Post-operative: -Post d&c for 16week demise. 07-08-2014 Unclassified (14 sources) Abdominal pain - The onset of the abdominal pain has been sudden and has been occurring in a persistent pattern for 2 days. The pain is described as a moderate cramping. The pain is located in the suprapubic area. The symptoms have been associated with dysuria. Note for Abdominal pain: -5 days post d&c. Naselle feverish 2 days ago. Is working today. Has constant dull ache and cramping with urination or BM. Vaginal bleeding has ceased. 07-05-2014 Unclassified (14 sources) Pre-operative clearance - Note for Pre-operative clearance: -Needs D&C for missed ab. 06-29-2014 Unclassified (14 sources) visit - The patient is here for a 15 week visit. 06-27-2014 Unclassified (14 sources) visit (initial) - The patient suspects she is due to a positive home test and symptoms similar to prior . Last menstrual period: 9 weeks ago. - (2). The patient complains of nausea. 05-16-2014 Unclassified (14 sources) poison selene - Pt is here today with complaint of poison selene. Just started this morning but says it tends to get really bad really fast. She is in a wedding this weekend and wanted to get started on something before it got worse. Located on neck, arm, and torso. Boyfriend currently has poison selene really bad. Has been using OTC creams only. 12-18-2011 Unclassified (14 sources) Rash - The onset of the rash has been acute and has been occurring in a persistent pattern for 1 day. The course has been increasing. The rash is characterized as red and raised above the skin. The rash was first seen on the face (around left eye). It spread to the face (spreading on face and on ears.) and the neck. There has been associated itching, pain (rash on ears) and edema, while there has been no associated drainage. There has been no associated fatigue or mucous membrane lesions. 08-15-2011 Unclassified (14 sources) Cold Symptoms - Symptoms include nasal congestion, ear fullness, sore throat (worse today; exudate noted today), dry cough (today), fever (Tmax 101), chills, general malaise, headache (improved today) and facial pain (yesterday), but do not include sneezing, runny nose or ear pain. The onset was gradual 3 day(s) ago. The symptoms occur constantly. The patient describes this as moderate in severity and worsening. Current treatment includes non-prescription cold medication and NSAIDs. The patient has not been exposed to an individual with an upper respiratory infection or an individual with strep. Medical History includes recurrent strep pharyngitis and asthma (seasonal - with hot/humid weather)Patient denies history of seasonal allergies, tonsillectomy or recurrent ear infections. 01-09-2011 Unclassified (14 sources) f/u asthma - Pt states that since her last ov the asthma sx are much better. She has seen a big improvement using the spacer. 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 Has not had any ER visits and has not had to miss work since her last visit. 01-03-2011 Unclassified (14 sources) asthma - Pt was here on 12/11/10 for asthma flare up. She was given a steroid inhaler and she also has a rescue inhaler. She states that her sx have not gotten any better. She has missed several days of work because of it. 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 She gets short of breath easily and feels very tight. 12-21-2010 Unclassified (14 sources) asthma flare - States humidity has caused her asthma to flare. She is using her proair approximately 3 or4 times a day and it helps temporarily. 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 Asking about fmla papers until asthma is better controlled. Has been trying to work and these symptoms are making it difficult. During flare up, she has lightheadedness, chest heaviness and pressure, and hand numbness. 12-11-2010 Unclassified (14 sources) Well adult female - The patient feels well with no complaints. The first day of the last menstrual period was : (3 weeks ago, occur monthly, moderate flow). Patient does not exercise. 11-01-2010 Unclassified (11 sources) Well adult female - The patient feels well with no complaints, has good energy level and is sleeping well. The first day of the last menstrual period was : (02.17.24). The patient has a balanced diet and takes no supplemental vitamins & iron. The patient exercises daily (Pt runs a mile a day). The patient sleeps 6 hours per night. Note for Well adult female: Has labs to be reviewed today.Patient reports that she was diagnosed with Meniere's disease by ENT. Her symptoms have improved significantly with a low sodium diet. 03-05-2024 Unclassified (8 sources) Rash - The onset of the rash has been sudden and has been occurring in a persistent pattern for 1 week. The course has been increasing. The rash is characterized as red, weeping and raised above the skin. The rash was first seen on the upper extremity (both arms). It spread to the entire body. There has been associated itching, pain, erythema and edema, while there has been no associated drainage. There has been associated fatigue, itching and pain (on arms), while there has been no chills, fever, lymphadenopathy, malaise, mucous membrane lesions, nail changes or weight loss. Note for Rash: Patient has tried many OTC topical treatments without significant relief of her symptoms. She was clearing brush and plants from their newly purchased property before the rash started. 11-29-2024 Unclassified (1 source) Well adult female - Note for Well adult female: pap 202312-03-2024 Unclassified (1 source) Well adult female - The patient feels well with no complaints, has good energy level and is sleeping well. The first day of the last menstrual period was : (11/28/2024). The patient is not using any method of contraception at this time. The patient has inadequate caloric intake and takes no supplemental vitamins & iron. The patient does not exercise. The patient sleeps 5 hours per night. The patient's libido is normal. Note for Well adult female: pap 202312-03-2024 Unclassified (5 sources) Well adult female - The patient feels well with no complaints, has good energy level and is sleeping well. The first day of the last menstrual period was : (11/28/2024). The patient is not using any method of contraception at this time. The patient has a balanced diet and takes no supplemental vitamins & iron. The patient does not exercise. The patient sleeps 5 hours per night. Note for Well adult female: pap atient does have a family history of colon cancer, but not breast cancer.Patient has labs to be reviewed today.Patient was seen 11/29/24 for contact dermatitis. Her rash is slowly improving, but she is requesting a refill of triamcinolone as she is almost out. 12-03-2024 Results Test Name Value Interpretation Reference Range Facility Plastic Surgery Visit Report on 12-21-2024 Plastic Surgery Visit Report [facility] Plastic Reconstructive Surgery [address], [address] [place] [address] OFFICE VISIT Date of Service: 12/21/24 MR#: [id number] Acct: [id number] Name: EFRAIN OLGUIN Rep #: [id number] : 1990 Provider: Dr. Randy Kearns MD Age/Sex: 34/F Location: [place] [address] Status: Signed Intake Vital Signs 12/03/24 17:15 Height 5 ft 7 in Weight: 170 lb BMI 26.6 BP 117/66 Respiration 18 Pulse 91 Temp 98.6 F Temp Source Oral Pulse Oximetry (%) 99 Intake Visit Reasons: 1 week follow up Chief Complaint: 1 week follow up laceration left long and ring finger Is patient in pain?: No Allergies No Known Allergies Allergy (Verified 12/21/24 14:07) Medications ???Medication ???Instructions ???Recorded ???Confirmed ???Type hydrocodone-acetamin ophen 5-325mg 1 tab PO Q6H PRN PRN Pain 2 days 12/03/24 12/21/24 Rx 5mg-325mg #8 TABLETS ibuprofen 600 mg tablet 600 mg PO Q6H PRN PRN pain #20 04/1912/21/24 Rx TABLETS Nurse's Note: pt doing well PFSH Medical History Asthma Anemia Family History Father Hypertension Cancer Social History Smoking Status: Never smoker alcohol intake: never additional social history: pt denies vaping, denies edibles, denies marijuana denies blood clots/family hx of blood disorders Does use aspirin and ibuprofen as needed HPI 1 week follow up Details: Details: HPI 08 December 2024: The patient is a 34-year-old female presenting with left long and ring finger lacerations and a left ring finger distal phalanx base fracture in the hand due to a lawnmower blade injury. The injury occurred on 03 December 2024 when the patient reached to brush off a clump from the lawnmower, and the blade caught her hand, causing lacerations and a fracture at the base of the distal phalanx of the left ring finger. The patient reported a tingling sensation in the hand, particularly when holding her arm in certain positions, but no numbness was noted. The patient has a history of a similar injury to the same finger, which did not result in tendon damage. 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 Attestation: Documentation on this patient encounter was supported using ambient scribe technology/ voice AI technology. The patient consented to recording for the purpose of documenting the encounter. Provider reviewed content of the generated note prior to signature. 14 December 2024: The patient is a 34-year-old female presenting with a follow-up for a nondisplaced fracture of the distal phalanx of the ring finger. The fracture was caused by a lawnmower accident, and the patient has been taking Augmentin and doxycycline to prevent infection. The fracture remains nondisplaced with aligned joints. The patient reports no significant drainage or infection signs, though there is a slight 'sleepy feeling' on the underside of the finger. She has been instructed to maintain moist wound care and continue antibiotics to avert potential bone infection. The patient does not smoke, aiding her recovery, and her children have been supportive in managing household tasks. ROS - Neurological: Reports slight 'sleepy feeling' on the underside of the ring finger. Denies numbness or tingling. Attestation: Documentation on this patient encounter was supported using ambient scribe technology/ voice AI technology. The patient consented to recording for the purpose of documenting the encounter. Provider reviewed content of the generated note prior to signature. Current encounter, 21 December 2024: Patient denies any fevers chills or drainage. She has been compliant on the Augmentin and doxycycline 2-week course which will be completed this evening. She has been compliant with her splint. She has not been moving the DIP joints of the ring finger where there was a base fracture (nondisplaced), but has been moving the PIP joint as instructed. Exam Details L Upper Extremity Inspection: Wounds healing well. no exposed bone or critical structures. Tissue is viable and healing over the ring and long fingers. Palpation: No palpable fluid collections or obvious fluid/drainage Motor: Able to bend and extend all MP, PIP, and DIP joints. No mallet fingers or jersey fingers Sensory: Intact to light touch on the radial and ulnar borders; two-point discrimination intact at two millimeters distal to the zone of injury. She does not appear to have a nerve injury on the injured ring and long fingers. Vascular: Finger tips are warm and well perfused with greater than 2 second capillary refill. Coding Lev (more content not included)... [facility] Hand Min 3 Viewson [address] Hand Min [address] [facility] Imaging Services [address] [place] [address] Hand Min 3 Views MR#: [id number] Acct: [id number] Name: EFRAIN OLGUIN Rep #: [id number] : 1990 F 34 From: Tee Delvalle MD PCP: Dr. Jim Thornton MD Status: DEP AMB Study: Hand Min 3 Views Date of Exam: 12/14/24 Exam# [id number] Ordering Dr: Randy Kearns MD PROCEDURE: HAND MIN 3 VIEWS 12/14/2024 REASON FOR EXAM: LACERATION FRACTURE, FOLLOW UP TECHNIQUE: HAND MIN 3 VIEWS COMPARISON: 12/03/2024 FINDINGS: Acute, nondisplaced, intra-articular fracture, base of distal phalange, 4th digit, is redemonstrated. No visible healing. No dislocation. RAD/Hand Min 3 Views IMPRESSION: Stable appearance of recent 4th digit injury. Reading Location: [place] [address] CC: Dr. Jim Thornton MD; Dr. Randy Kearns MD Retail Aide: Signed [facility] Plastic Surgery Visit Report on 12-14-2024 Plastic Surgery Visit Report [facility] Plastic Reconstructive Surgery [address], [address] [place] [address] OFFICE VISIT Date of Service: 12/14/24 MR#: [id number] Acct: [id number] Name: EFRAIN OLGUIN Rep #: [id number] : 1990 Provider: Dr. Randy Kearns MD Age/Sex: 34/F Location: [place] [address] Status: Signed Intake Vital Signs 12/03/24 17:15 Height 5 ft 7 in Weight: 170 lb BMI 26.6 BP 117/66 Respiration 18 Pulse 91 Temp 98.6 F Temp Source Oral Pulse Oximetry (%) 99 Intake Visit Reasons: 1 WEEK FU Chief Complaint: 1 week follow up Is patient in pain?: No Allergies No Known Allergies Allergy (Verified 12/14/24 12:56) Nurse's Note: pt here for 1 week follow up, possible suture removal PFSH Medical History Asthma Anemia Family History Father Hypertension Cancer Social History Smoking Status: Never smoker alcohol intake: never additional social history: pt denies vaping, denies edibles, denies marijuana denies blood clots/family hx of blood disorders Does use aspirin and ibuprofen as needed HPI 1 WEEK FU Details: The patient is a 34-year-old female presenting with left long and ring finger lacerations and a left ring finger distal phalanx base fracture in the hand due to a lawnmower blade injury. The injury occurred on 03 December 2024 when the patient reached to brush off a clump from the lawnmower, and the blade caught her hand, causing lacerations and a fracture at the base of the distal phalanx of the left ring finger. The patient reported a tingling sensation in the hand, particularly when holding her arm in certain positions, but no numbness was noted. The patient has a history of a similar injury to the same finger, which did not result in tendon damage. 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 ROS: - Neurological: Reports tingling sensation in the hand, denies numbness Attestation: Documentation on this patient encounter was supported using ambient scribe technology/ voice AI technology. The patient consented to recording for the purpose of documenting the encounter. Provider reviewed content of the generated note prior to signature. CURRENT ENCOUNTER, 14 December 2024: The patient is a 34-year-old female presenting with a follow-up for a nondisplaced fracture of the distal phalanx of the ring finger. The fracture was caused by a lawnmower accident, and the patient has been taking Augmentin and doxycycline to prevent infection. The fracture remains nondisplaced with aligned joints. The patient reports no significant drainage or infection signs, though there is a slight 'sleepy feeling' on the underside of the finger. She has been instructed to maintain moist wound care and c ontinue antibiotics to avert potential bone infection. The patient does not smoke, aiding her recovery, and her children have been supportive in managing household tasks. ROS - Neurological: Reports slight 'sleepy feeling' on the underside of the ring finger. Denies numbness or tingling. Attestation: Documentation on this patient encounter was supported using ambient scribe technology/ voice AI technology. The patient consented to recording for the purpose of documenting the encounter. Prov ider reviewed content of the generated note prior to signature. Exam Details L Upper Extremity Inspection: Sutures removed without issue. No exposed bone or critical structures. Tissue is viable and healing over the ring and long fingers. Palpation: No palpable fluid collections or obvious fluid/drainage Motor: Able to bend and extend all MP, PIP, and DIP joints. No mallet fingers or jersey fingers Sensory: Intact to light touch on the radial and ulnar borders; two-point discrimination intact at two millimeters distal to the zone of injury. She does not appear to have a nerve injury on the injured ring and long fingers (this was carefully tested again today). Vascular: Finger tips are warm and well perfused with greater than 2 second capillary refill. Supplemental Info - Imaging: X-ray reviewed again today and shows nondisplaced fracture of the distal phalanx of the ring finger with no displacement. Coding Level of Care Code Off vis,est,level 3 Diagnoses Laceration of left middle finger S61.213A Abrasion of left index finger S60.411A Open fracture of phalanx of left ring finger S62.605B Assessment and Plan (No Qualifiers) Assessment and Plan (1) Laceration of left middle finger: Status: Inactive (2) Abrasion of left index finger: Status: Inactive (3) Open fracture of phalanx of left ring finger (more content not included)... [facility] Plastic Surgery Visit Report on 12-07-2024 Plastic Surgery Visit Report [facility] Plastic Reconstructive Surgery [address], [address] [place], [place] [address] OFFICE VISIT Date of Service: 12/07/24 MR#: [id number] Acct: [id number] Name: EFRAIN OLGUIN Rep #: [id number] : 1990 Provider: Dr. Randy Kearns MD Age/Sex: 34/F Location: [place] [address] Status: Signed Intake Vital Signs 12/03/24 17:15 Height 5 ft 7 in Intake Visit Reasons: ED FOLLOW UP Chief Complaint: ed follow up laceration right ring and middle finger Accompanied by: Is patient in pain?: No Allergies No Known Allergies Allergy (Verified 12/07/24 14:49) Medications ???Medication ???Instructions ???Recorded ???Confirmed ???Type hydrocodone-acetamin ophen 5-325mg 1 tab PO Q6H PRN PRN Pain 2 days 07/11/25 07/15/25 Rx 5mg-325mg #8 TABLETS ibuprofen 600 mg tablet 600 mg PO Q6H PRN PRN pain #20 04/1912/07/24 Rx TABLETS amoxicillin 875 mg-potassium 1 tab PO Q12H 2 weeks #28 tabs 12/07/24 Rx clavulanate 125 mg tablet doxycycline hyclate 100 mg capsule 100 mg PO BID 14 days #28 caps 0 12/07/24 12/07/24 Rx PFSH Medical History Asthma Anemia Family History Father Hypertension Cancer Social History Smoking Status: Never smoker alcohol intake: never additional social history: pt denies vaping, denies edibles, denies marijuana denies blood clots/family hx of blood disorders Does use aspirin and ibuprofen as needed HPI ED FOLLOW UP Details: The patient is a 34-year-old female presenting with left long and ring finger lacerations and a left ring finger distal phalanx base fracture in the hand due to a lawnmower blade injury. The injury occurred when the patient reached to brush off a clump from the lawnmower, and the blade caught her hand, causing lacerations and a fracture at the base of the distal phalanx of the left ring finger. The patient reported a tingling sensation in the hand, particularly when holding her arm in certain positions, but no numbness was noted. The patient has a history of a similar injury to the same finger, which did not result in tendon damage. 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 ROS: - Neurological: Reports tingling sensation in the hand, denies numbness Attestation: Documentation on this patient encounter was supported using ambient scribe technology/ voice AI technology. The patient consented to recording for the purpose of documenting the encounter. Provider reviewed content of the generated note prior to signature. ROS General General: Yes good health; No fatigue, fever(s) or weight loss HENMT HENMT: No rhinitis, sore throat/mouth sore, nasal congestion, contacts or glaucoma Endo Endocrine: No thyroid disease, polydipsia, heat intolerance, cold intolerance, hepatitis or excessive urine Skin Skin: No Bleeding, bruising, changing moles or suspicious lesion Musc Musculoskeletal: No joint pain, joint stiffness, muscle weakness, back pain, osteoarthritis or Muscle aches/ myalgia Neuro Neurological: No headache(s), No lightheadedness and No numbness Cardio Cardiovascular: No chest pain, pacemaker, fatigue or shortness of breat with exertion Psych Psychiatric: No depression, claustrophobia or anxiety Resp Respiratory: No spitting up, shortness of breath, sleep apnea, asthma, emphysema, TB, Cough or Smoker Gastro Gastrointestinal: No diarrhea, constipation, blood in stool, nausea, vomiting or abdominal bloating Stan Hematologic: No anemia, No bleeding and No abnormal bleeding Genitourinary: No urinary frequency, blood in urine or incontinence Exam Details Left Upper Extremity Inspection/palpation : Lacerations on the dorsal left hand fingers, particularly the ring and long. No circumferential laceration. Swelling present, appropriately swollen. Lacerations closed with nylon, no induration or drainage. No fluid collections. No collateral ligament instability. Motor: Able to bend and extend all MP, PIP, and DIP joints, although some tightness noted. No signs of extensor tendon injuries (hyperextends from neutral and no DIP droop or apparent boutonniere) Sensory: Intact to light touch on the radial and ulnar borders, but she has intact 2 mm 2-point discrimination distal to the zones of injury on her fingers consistent with intact digital nerves. Vascular: Finger tips are warm and well perfused with greater than 2 second capillary refill. Supplemental Info Xray reviewed and small nondisplaced fracture of the base of the left ring finger distal phalanx Coding Level of Care Code Off vis,new,level 4 Diagno (more content not included)... [facility] Emergency Department Summary on 12-03-2024 Emergency Department Summary [facility] Medical Records Department [address] [place] [address] Emergency Department Summary 12/03/24 MR#: [id number] Acct: [id number] Name: EFRAIN OLGUIN Rep #: [id number] : 1990 34 From: Tony [place] MD PCP: Dr. Jim Thornton MD Status:DEP ER Location: ED HPI History of Present Illness Chief Complaint: Laceration Narrative Narrative: 34-year-old female presents with a left hand injury. She was mowing the lawn and states she touched the blade before it fully stopped. There are lacerations of the index, middle, and ring fingers. She has no weakness or numbness or tingling. She is right-hand dominant.Tetanus was last updated January 2020. PFSH PFSH Medical History no medical history Home Medications ???Medication ???Instructions ???Recorded ???Last Taken ???Type cephalexin 500 mg capsule 500 mg PO BID 7 days #14 caps 11/23 06/19 Unknown Rx hydrocodone-acetamin ophen 5-325mg 1 tab PO Q6H PRN PRN Pain 2 days 12/03/24 Unknown Rx 5mg-325mg #8 TABLETS ibuprofen 600 mg tablet 600 mg PO Q6H PRN PRN pain #20 04/19 Unknown Rx TABLETS Allergy/AdvReac Type Severity Reaction Status Date / Time No Known Allergies Allergy Verified 12/03/24 17:16 Surgical History no surgical history Social History Smoking Status: Never smoker EXAM Physical Exam Narrative Exam Narrative: CONST: Patient sitting in no acute distress. EYES: Normal inspection. EXTREMITIES: Left hand: Abrasion on the tip of the index finger that does not require repair. 1 cm laceration over the middle proximal phalanx. 2 cm laceration over the middle distal phalanx. These are to the level of the subcutaneous tissue and have no tendon or bone involvement. 3 cm irregular and macerated laceration on the left ring finger on the middle and distal phalanges. No visible tendon or bone. Normal motor and sensory function in median radial and ulnar distributions. 2+ radial pulse. Brisk cap refill in all digits. 2 point discrimination intact in the ring finger. NEURO: Alert and answering questions appropriately. PSYCH: Normal affect. Const Vital Signs: 12/03/24 17:15 12/03/24 19:27 Temperature 98.6 F 98.6 F Temperature Source Oral Pulse Rate 91 74 Respiratory Rate 18 18 Blood Pressure 117/66 112/67 Blood Pressure Mean 83 82 Pulse Ox 99 100 Oxygen Delivery Method Room Air Physical Exam Const Vital Signs: 12/03/24 17:15 12/03/24 19:27 Temperature 98.6 F 98.6 F Temperature Source Oral Pulse Rate 91 74 Respiratory Rate 18 18 Blood Pressure 117/66 112/67 Blood Pressure Mean 83 82 Pulse Ox 99 100 Oxygen Delivery Method Room Air PROC Procedures Lacerations Left middle finger : Length: 1.18 in Depth: Skin Shape: Linear Laceration repair: Wound explored Irrigated (ml): 100 Suture Information: Ethilon, Simple and 5-0 Comment: There are two separate lacerations. There is a 1 cm in the middle proximal phalanx I repaired with 1 simple interrupted suture. There is a 2 cm laceration on the middle distal phalanx repaired with 4 simple erupted suture of 5-0 Ethilon. Left ring finger: Length: 1.18 in Depth: Sub Q Shape: Irregular and macerated Prep: Sterile Conditions Laceration repair: Digital block, Irrigated, Lidocaine and Wound explored Irrigated (ml): 200 Number of Sutures/Dg: 6 Suture Information: Ethilon, Simple and 4-0 Comment: After digital block and irrigation wound was explored and there is no sign of tendon injury. I approximated the wound as best as possible with 4-0 Ethilon. MDM MDM MDM Narrative Medical decision making narrative: Differential includes finger laceration versus open fracture 34-year-old uqgne-zoud-irrjdjab female presents with left hand lacerations. The ring finger has the most severe laceration that is macerated. The rings were cut off and there is a small abrasion under the ring area that does not need repair. I performed digital blocks of the middle and ring fingers. I repaired the distal ring finger laceration with 6 sutures and 2 separate middle finger lacerations with 1 and 3 sutures each, respectively. Her tetanus is already up-to-date. X-ray showed a distal fourth phalanx fracture so she was placed on Keflex with first dose given here. I discussed wound care and provided a referral to Dr. Kearns for wound recheck. She was discharged in stable condition. I have personally performed a face to face assessment of the patient and have reviewed the BENITO Note. I performed a substantive portion of the visit including all aspects of the following. My lemos findings include: History is remarkable for patient sticking her hand in the lawn more prior to the blade stopping. She stated laceration to her index, (more content not included)... Normal [facility] Hand Min 3 Viewson 5 Hand Min [address] [facility] [address] [place] [address] Hand Min 3 Views MR#: [id number] Acct: [id number] Name: EFRAIN OLGUIN Rep #: [id number] : 1990 F 34 From: Butch Guillermo MD PCP: Dr. Jim Thornton MD Status: DEP ER Study: Hand Min 3 Views Date of Exam: 12/03/24 Exam# [id number] Ordering Dr: Tony Hills MD ADDENDUM by Dr. Butch Guillermo MD on 12/13/24 at 2328 FRONTAL, LATERAL AND OBLIQUE RADIOGRAPHS OF THE LEFT HAND: Acute nondisplaced fracture of the left 4th distal phalanx base. Reading Location: [facility] 12/13/24 2328 Date cc: Dr. Jim Thornton MD; Dr. Tony Hills MD * Signed PROCEDURE: HAND MIN 3 VIEWS 12/03/2024 REASON FOR EXAM: INJURY/PAIN TECHNIQUE: HAND MIN 3 VIEWS COMPARISON: None. FINDINGS: Acute nondisplaced fracture at the ulnar aspect of the 4th distal phalanx base, without definite intra-articular extension. No additional acute fracture or dislocation is seen. Preserved joint spaces. Alignment is anatomic. Normal bone mineralization. Mild soft tissue swelling about the 4th digit. RAD/Hand Min 3 Views IMPRESSION: Acute nondisplaced fracture of the 4th distal phalanx base. Reading Location: [facility] CC: Dr. Jim Thornton MD; Dr. Tony Hills MD Retail Aide: Signed Normal [facility] COMPREHENSIVE METABOLIC PANE [place] 11-23-2024 Albumin [Mass/Vol] 4.3 g/dL Normal 3.6-5.1 [facility] Comment on above: Performed By: #### 1 6711, 5230 #### [facility] [address], [address] [place] [id number] [employer] Combination: Rob Hernandes MD Albumin/Globulin [Mass ratio] 1.7 {ratio} Normal 1.0-2.5 [facility] Comment on above: Performed By: #### 1 023, 7600 #### [facility] of [place] [address] [employer] App[employer]ice Combination: Rob Hernandes MD ALP [Catalytic activity/Vol] 48 U/L Normal 31-125 [facility] Comment on above: Performed By: #### 1 230, 7600 #### [facility] of [address], [address] [place] [address] [employer] Combination: Rob Hernandes MD ALT [Catalytic activity/Vol] 11 U/L Normal 6-29 [facility] Comment on above: Performed By: #### 1 230, 7600 #### [facility] [place] [address] [employer] Combination: Rob Hernandes MD AST [Catalytic activity/Vol] 16 U/L Normal 10-30 [facility] Comment on above: Performed By: #### 1 230, 7600 #### [facility] of [address], [address] [place] [address] [employer] Combination: Rob Hernandes MD Bilirubin [Mass/Vol] 0.5 mg/dL Normal 0.2-1.2 [facility] Comment on above: Performed By: #### 1 230, 7600 #### [facility] [place] [address] [employer] Combination: Rob Hernandes MD BUN/CREATININE RATIO SEE NOTE: Normal 6-22 [facility] Comment on above: Result Comment: Not Reported: BUN and Creatinine are within reference range. Performed By: #### 1 023, 7600 #### [facility] of [address], [address] [place] [address] [employer] Combination: Rob Hernandes MD Calcium [Mass/Vol] 8.9 mg/dL Normal 8.6-10.2 [facility] Comment on above: Performed By: #### 1 023, 7600 #### [facility] of [address], [address] [place] [address] [employer] Combination: Rob Hernandes MD Chloride [Moles/Vol] 107 mmol/L Normal 98-110 [facility] Comment on above: Performed By: #### 1 0231, 7600 #### [facility] of [address], [address] [place] [address] [employer] Combination: Rob Hernandes MD CO2 [Moles/Vol] 26 mmol/L Normal 20-32 [facility] Comment on above: Performed By: #### 1 023, 7600 #### [facility] of [address], [address] [place] [address] [employer] Combination: Rob Hernandes MD Creatinine [Mass/Vol] 0.64 mg/dL Normal 0.50-0.97 [facility] Comment on above: Performed By: #### 1 023, 7600 #### [facility] of [address], [address] [place] [address] [employer] Combination: Rob Hernandes MD GFR/1.73 sq M.predicted among non-blacks MDRD (S/P/Bld) [Vol rate/Area] 117 mL/min/{1.73_m2} Normal > OR = 60 [facility] Comment on above: Performed By: #### 1 023, 7600 #### [facility] of [address], [address] [place] [address] [employer] Combination: Rob Hernandes MD Globulin (S) [Mass/Vol] 2.5 g/dL Normal 1.9-3.7 [facility] Comment on above: Performed By: #### 1 0231, 7600 #### [facility] of [address], [address] [place] [address] [employer] Combination: Rob Hernandes MD Glucose [Mass/Vol] 84 mg/dL Normal 65-99 [facility] Comment on above: Result Comment: Fasting reference interval Performed By: #### 1 0231, 7600 #### [facility] of [address], [address] [place] [address] [employer] Combination: Rob Hernandes MD Potassium [Moles/Vol] 3.7 mmol/L Normal 3.5-5.3 [facility] Comment on above: Performed By: #### 1 0231, 7600 #### [facility] [place] [address] [employer] Combination: Rob Hernandes MD Protein [Mass/Vol] 6.8 g/dL Normal 6.1-8.1 [facility] Comment on above: Performed By: #### 1 023, 7600 #### [facility] [place] [address] [employer] Combination: Rob Hernandes MD Sodium [Moles/Vol] 140 mmol/L Normal 135-146 [facility] Comment on above: Performed By: #### 1 023, 0 #### [facility] [place] [address] [employer] Combination: Rob Hernandes MD Urea nitrogen [Mass/Vol] 13 mg/dL Normal 7-25 [facility] Comment on above: Performed By: #### 1 023, 0 #### [facility] [place] [address] [employer] Combination: Rob Hernandes MD LIPID PANEL, STANDARD 07-0 Cholesterol [Mass/Vol] 171 mg/dL Normal <200 [facility] Comment on above: Performed By: #### 1 0231, 7600 #### [facility] [place] [address] [employer] App[employer] Combination: Rob Hernandes MD Cholesterol in HDL [Mass/Vol] 72 mg/dL Normal > OR = 50 [facility] Comment on above: Performed By: #### 1 0231, 7600 #### [facility] [place] [address] [employer] Combination: Rob Hernandes MD Cholesterol in LDL [Mass/Vol] 89 mg/dL Normal [facility] Comment on above: Result Comment: Refe rence range: <100 Desirable range <100 mg/dL for primary prevention; <70 mg/dL for patients with CHD or diabetic patients with > or = 2 CHD risk factors. LDL-C is now calculated using the Mckenna calculation, which is a validated novel method providing better accuracy than the Friedewald equation in the estimation of LDL-C. Angel COTE et al. TERESA. 2013;310(19): 7136-5227 (http://education.Functional Neuromodulation.[employer]/faq/OMB689) Performed By: #### 1 0231, 7600 #### [facility] [address], [address] [place] [address] [employer] App[employer] Combination: Rob Hernandes MD Cholesterol.total/Cho lesterol in HDL [Mass ratio] 2.4 {ratio} Normal <5.0 [facility] Comment on above: Performed By: #### 1 023, 7600 #### [facility] [address], [address] [place] [address] [employer] App[employer]ice Combination: Rob Hernandes MD NON HDL CHOLESTEROL 99 mg/dL (calc) Normal <130 [facility] Comment on above: Result Comment: For patients with diabetes plus 1 major ASCVD risk factor, treating to a non-HDL-C goal of <100 mg/dL (LDL-C of <70 mg/dL) is considered a therapeutic option. Performed By: #### 1 023, 7600 #### [facility] [address], [address] [place] [address] [employer] Combination: Rob Hernandes MD Triglyceride [Mass/Vol] 36 mg/dL Normal <150 [facility] Comment on above: Performed By: #### 1 023, 7600 #### [facility] [address], [address] [place] [address] [employer] App[employer] Combination: Rob Hernandes MD Laboratory - Chemistry and C hemistry - challengeon 11-22-2024 Albumin [Mass/Vol] 4.3 g/dL Normal 3.6 - 5.1 g/dL [facility] Albumin/Globulin [Mass ratio] 1.7 {ratio} Normal 1.0 - 2.5 [facility], [facility]. ALP [Catalytic activity/Vol] 48 U/L Normal 31 - 125 U/L [facility].; [facility], [facility]. ALT [Catalytic activity/Vol] 11 U/L Normal 6 - 29 U/L [facility], [facility].; [facility], [facility]. AST [Catalytic activity/Vol] 16 U/L Normal 10 - 30 U/L [facility].; [facility], [facility] Bilirubin [Mass/Vol] 0.5 mg/dL Normal 0.2 - 1 .2 mg/dL [facility].; [facility], [facility] Calcium [Mass/Vol] 8.9 mg/dL Normal 8.6 - 10. 2 mg/dL [facility].; [facility], [facility]. Chloride [Moles/Vol] 107 mmol/L Normal 98 - 11 0 mmol/L [facility].; [facility], [facility]. Cholesterol [Mass/Vol] 171 mg/dL Normal [facility].; [facility], [facility]. Cholesterol in HDL [Mass/Vol] 72 mg/dL Normal [facility].; [facility], [facility]. Cholesterol in LDL [Mass/Vol] 89 mg/dL Normal [facility], [facility].; [facility], [facility]. CO2 [Moles/Vol] 26 mmol/L Normal 20 - 32 mmol/L [facility], [facility] Creatinine [Mass/Vol] 0.64 mg/dL Normal 0.50 - 0.97 mg/dL [facility], [facility].; [facility], [facility]. GFR/1.73 sq M.predicted among non-blacks MDRD (S/P/Bld) [Vol rate/Area] 117 mL/min/{1.73_m2} Normal [facility], [facility]. Glucose [Mass/Vol] 84 mg/dL Normal 65 - 99 mg/dL [facility], [facility] Potassium [Moles/Vol] 3.7 mmol/L Normal 3.5 - 5.3 mmol/L [facility].; [facility], [facility]. Protein [Mass/Vol] 6.8 g/dL Normal 6.1 - 8.1 g/dL [facility], [facility]. Sodium [Moles/Vol] 140 mmol/L Normal 135 - 146 mmol/L [facility].; [facility], [facility]. Triglyceride [Mass/Vol] 36 mg/dL Normal [facility]; [facility], [facility] Urea nitrogen [Mass/Vol] 13 mg/dL Normal 7 - 25 mg/dL [facility].; [facility], [facility] No Panel Informationon 11-22 BUN/CREATININE RATIO SEE NOTE: Normal - [facility], [facility]. CHOL/HDLC RATIO 2.4 Normal [facility]; [facility], [facility]. GLOBULIN 2.5 Normal 1.9 - 3.7 [facility]; [facility], [facility]. NON HDL CHOLESTEROL 99 Normal [facility], [facility]. THINPREP TIS PAP AND HPV mRN A E6/E7on 03-08-2024 CLINICAL INFORMATION: Normal [facility] Comment on above: Result Comment: None given Performed By: #### 9 0933 #### [facility] [address], [address] [place], [place] [id number] [employer] App[employer]ice Combination: Rob Hernandes MD COMMENT Normal [facility] Comment on above: Result Comment: EXPL ANATORY NOTE: The Pap is a screening test for cervical cancer. It is not a diagnostic test and is subject to false negative and false positive results. It is most reliable when a satisfactory sample, regularly obtained, is submitted with relevant clinical findings and history, and when the Pap result is evaluated along with historic and current clinical information. Performed By: #### 9 0933 #### [facility] [address], [address] [place], [place] [id number] Wel[employer] App[employer]ice Combination: Rob Hernandes MD COMMENT: Normal [facility] Comment on above: Result Comment: This Pap test has been evaluated with computer assisted technology. Performed By: #### 9 0933 #### [facility] [place] [address] [employer] App[employer] Combination: Rob Hernandes MD OCEANOGRAPHER ASSISTANT: Normal [facility] Comment on above: Result Comment: JOYCE CT(ASCP) CT screening location: [place] [address]. Performed By: #### 9 0933 #### [facility] [place] [address] [employer] Apprentice Combination: Rob Hernandes MD HPV mRNA E6/E7 Not detected Normal Not Detected [facility] Comment on above: Result Comment: Meth odology: Corduroy Brusher Operator-Mediated Amplification This assay detects E6/E7 viral messenger RNA (mRNA) from 14 high-risk HPV types (16,18,31,33,35,39,45,51,52,56,58,59,66,68). Cervical sources are required for HPV testing. If a vaginal source from a patient who has had a total hysterectomy with removal of cervix was submitted, please contact the testing laboratory for alternative testing options. For additional information, please refer to http://education.[employer]/faq/LBV459q5 (This link if provided for information/ educational purposes only.) Performed By: #### 9 0933 #### [facility] [place] [address] [employer] Apprent[employer] Combination: Rob Hernandes MD INTERPRETATION/RESULT : Normal [facility] Comment on above: Result Comment: Cyto logy Results: Negative for intraepithelial lesion or malignancy. Performed By: #### 9 0933 #### [facility] [place] [address] [employer] App[employer] Combination: Rob Hernandes MD LMP: Normal [facility] Comment on above: Result Comment: None given Performed By: #### 9 0933 #### [facility] [place] [address] [employer] Apprentice Combination: Rob Hernandes MD PREV. BX: Normal [facility] Comment on above: Result Comment: None given Performed By: #### 9 0933 #### [facility] of [address], [address] [place] [address] [employer] App[employer]ice Combination: Rob Hernandes MD PREV. PAP: Normal [facility] Comment on above: Result Comment: None given Performed By: #### 9 0933 #### [facility] of [address], [address] [place] [address] [employer] Combination: Rob Hernandes MD REVIEW OCEANOGRAPHER ASSISTANT: Normal [facility] Comment on above: Result Comment: PCJ, SCT(ASCP) CT screening location: [place] [address]. Performed By: #### 9 0933 #### [facility] [place] [address] Wel[employer] Apprentice Combination: Rob Hernandes MD SOURCE: Normal [facility] Comment on above: Result Comment: None given Performed By: #### 9 0933 #### [facility] [address], [address] [place] [address] [employer] Combination: Rob Hernandes MD STATEMENT OF ADEQUACY: Normal [facility] Comment on above: Result Comment: Sati sfactory for evaluation. Endocervical/transformation zone component absent. Performed By: #### 9 0933 #### [facility] of [address], [address] [place] [address] [employer] Combination: Rob Hernandes MD Panel Informationon 03-05 [id number] SEE NOTE Normal [facility], [facility].; [employer] [facility] CLINICAL INFORMATION: SEE NOTE Normal [facility], [facility].; [employer] COMMENT: SEE NOTE Normal [facility], [facility].; [employer] OCEANOGRAPHER ASSISTANT: SEE NOTE Normal [facility], [facility].; [employer] HPV mRNA E6/E7 Not detected Normal [facility].; [employer] INTERPRETATION/RESULT : SEE NOTE Normal [facility], [facility].; [employer] LMP: SEE NOTE Normal [facility], [facility].; [facility] [employer] PREV. BX: SEE NOTE Normal [facility] PREV. PAP: SEE NOTE Normal [facility] REVIEW OCEANOGRAPHER ASSISTANT: SEE NOTE Normal [facility] SOURCE: SEE NOTE Normal [facility], [facility].; [place] [employer] [facility] STATEMENT OF ADEQUACY: SEE NOTE Normal [place] [employer] [facility] COMPREHENSIVE METABOLIC PANE [facility] 02-21-2024 Albumin [Mass/Vol] 4.6 g/dL Normal 3.6-5.1 [facility] Comment on above: Performed By: #### 7 600, 87695 #### [facility] [place] [address] [employer] App[employer] Combination: Rob Hernandes MD Albumin/Globulin [Mass ratio] 1.8 {ratio} Normal 1.0-2.5 [facility] Comment on above: Performed By: #### 7 600, 43134 #### [facility] [place] [address] [employer] Apprentice Combination: Rob Hernandes MD ALP [Catalytic activity/Vol] 51 U/L Normal 31-125 [facility] Comment on above: Performed By: #### 7 600, 50415 #### [facility] [place] [address] Welder Apprentice Combination: Rob Hernandes MD ALT [Catalytic activity/Vol] 13 U/L Normal 6-29 [facility] Comment on above: Performed By: #### 7 600, 56553 #### [facility] [place] [address] [employer] Apprentice Combination: Rob Hernandes MD AST [Catalytic activity/Vol] 17 U/L Normal 10-30 [facility] Comment on above: Performed By: #### 7 600, 27752 #### [facility] [place] [address] Wel[employer] Apprentice Combination: Rob Hernandes MD Bilirubin [Mass/Vol] 0.5 mg/dL Normal 0.2-1.2 [facility] Comment on above: Performed By: #### 7 600, 96639 #### [facility] [place] [address] [employer] Apprent[employer] Combination: Rob Hernandes MD BUN/CREATININE RATIO SEE NOTE: Normal 6-22 [facility] Comment on above: Result Comment: Not Reported: BUN and Creatinine are within reference range. Performed By: #### 7 600, 41872 #### [facility] of [address], [address] [place] [address] [employer] Combination: Rob Hernandes MD Calcium [Mass/Vol] 9.5 mg/dL Normal 8.6-10.2 [facility] Comment on above: Performed By: #### 7 600, 98728 #### [facility] [place] [address] Wel[employer] Apprentice Combination: Rob Hernandes MD Chloride [Moles/Vol] 105 mmol/L Normal 98-110 [facility] Comment on above: Performed By: #### 7 600, 44068 #### [facility] [place] [address] Welder Apprentice Combination: Rob Hernandes MD CO2 [Moles/Vol] 26 mmol/L Normal 20-32 [facility] Comment on above: Performed By: #### 7 600, 03081 #### [facility] [place] [address] Wel[employer] Apprentice Combination: Rob Hernandes MD Creatinine [Mass/Vol] 0.72 mg/dL Normal 0.50-0.[address] [facility] Comment on above: Performed By: #### 7 600, 01088 #### [facility] [place] [address] Wel[employer] Apprentice Combination: Rob Hernandes MD GFR/1.73 sq M.predicted among non-blacks MDRD (S/P/Bld) [Vol rate/Area] 112 mL/min/{1.73_m2} Normal > OR = 60 [facility] Comment on above: Performed By: #### 7 600, 86625 #### [facility] of [address], [address] [place] [address] [employer] Apprentice Combination: Rob Hernandes MD Globulin (S) [Mass/Vol] 2.6 g/dL Normal 1.9-3.7 [facility] Comment on above: Performed By: #### 7 600, 85507 #### [facility] of [address], [address] [place] [address] [employer] App[employer]ice Combination: Rob Hernandes MD Glucose [Mass/Vol] 98 mg/dL Normal 65-99 [facility] Comment on above: Result Comment: Fasting reference interval Performed By: #### 7 600, 56196 #### [facility] of [address], [address] [place] [address] Welder Apprentice Combination: Rob Hernandes MD Potassium [Moles/Vol] 4.0 mmol/L Normal 3.5-5.3 [facility] Comment on above: Performed By: #### 7 600, 45701 #### [facility] of [address], [address] [place] [address] Welder Apprentice Combination: Rob Hernandes MD Protein [Mass/Vol] 7.2 g/dL Normal 6.1-8.1 [facility] Comment on above: Performed By: #### 7 600, 75008 #### [facility] [place] [address] Welder Apprentice Combination: Rob Hernandes MD Sodium [Moles/Vol] 140 mmol/L Normal 135-146 [facility] Comment on above: Performed By: #### 7 600, 70019 #### [facility] of [address], [address] [place] [address] [employer]der Apprentice Combination: Rob Hernandes MD Urea nitrogen [Mass/Vol] 14 mg/dL Normal 7-25 [facility] Comment on above: Performed By: #### 7 600, 29642 #### [facility] of [address], [address] [place] [address] Welder Apprentice Combination: Rob Hernandes MD LIPID PANEL, [facility] 01-25 Cholesterol [Mass/Vol] 161 mg/dL Normal <200 [facility] Comment on above: Performed By: #### 7 600, 78185 #### [facility] [place] [address] Welder Apprentice Combination: Rob Hernandes MD Cholesterol in HDL [Mass/Vol] 77 mg/dL Normal > OR = 50 [facility] Comment on above: Performed By: #### 7 600, 96167 #### [facility] [place] [address] Welder Apprentice Combination: Rob Hernandes MD Cholesterol in LDL [Mass/Vol] 75 mg/dL Normal [facility] Comment on above: Result Comment: Refe rence range: <100 Desirable range <100 mg/dL for primary prevention; <70 mg/dL for patients with CHD or diabetic patients with > or = 2 CHD risk factors. LDL-C is now calculated using the Mckenna calculation, which is a validated novel method providing better accuracy than the Friedewald equation in the estimation of LDL-C. Angel COTE et al. TERESA. 2013;310(19): 7734-4958 (http://education.Functional Neuromodulation.[employer]/faq/XZF689) Performed By: #### 7 600, 94254 #### [facility] [place] [address] [employer] Combination: Rob Hernandes MD Cholesterol.total/Cho lesterol in HDL [Mass ratio] 2.1 {ratio} Normal <5.0 [facility] Comment on above: Performed By: #### [id number], [id number] #### [facility] [place] [address] [employer] Apprentice Combination: Rob Hernandes MD NON HDL CHOLESTEROL 84 mg/dL (calc) Normal <130 [facility] Comment on above: Result Comment: For patients with diabetes plus 1 major ASCVD risk factor, treating to a non-HDL-C goal of <100 mg/dL (LDL-C of <70 mg/dL) is considered a therapeutic option. Performed By: #### [id number], [id number] #### [facility] [address], [address] [place] [address] [employer] Combination: Rob Hernandes MD Triglyceride [Mass/Vol] 33 mg/dL Normal <150 [facility] Comment on above: Performed By: #### 7 [id number], [id number] #### [facility] [address], [address] [place] [address] [employer] Combination: Rob Hernandes MD Laboratory - Chemistry and C hemistry - challengeon 02-20-2024 Albumin [Mass/Vol] 4.6 g/dL Normal 3.6 - 5.1 g/dL [facility], [facility] [employer] Albumin/Globulin [Mass ratio] 1.8 {ratio} Normal 1.0 - 2.5 [facility], [facility].; [employer] ALP [Catalytic activity/Vol] 51 U/L Normal 31 - 125 U/L [place] [employer], [facility].; [employer] ALT [Catalytic activity/Vol] 13 U/L Normal 6 - 29 U/L [place] [employer], [facility].; [employer] AST [Catalytic activity/Vol] 17 U/L Normal 10 - 30 U/L [place] [employer], [facility].; [employer] Bilirubin [Mass/Vol] 0.5 mg/dL Normal 0.2 - 1 .2 mg/dL [place] [employer], [facility].; [employer] Calcium [Mass/Vol] 9.5 mg/dL Normal 8.6 - 10. 2 mg/dL [place] [employer], [facility].; [employer] Chloride [Moles/Vol] 105 mmol/L Normal 98 - 11 0 mmol/L [place] [employer], [facility].; [employer] Cholesterol [Mass/Vol] 161 mg/dL Normal [employer] Cholesterol in HDL [Mass/Vol] 77 mg/dL Normal [employer] Cholesterol in LDL [Mass/Vol] 75 mg/dL Normal [employer] CO2 [Moles/Vol] 26 mmol/L Normal 20 - 32 mmol/L [facility], [facility].; [facility]. Creatinine [Mass/Vol] 0.72 mg/dL Normal 0.50 - 0.97 mg/dL [facility].; [facility], [facility]. GFR/1.73 sq M.predicted among non-blacks MDRD (S/P/Bld) [Vol rate/Area] 112 mL/min/{1.73_m2} Normal [facility], [facility].; [place] [employer] [facility], [facility]. Glucose [Mass/Vol] 98 mg/dL Normal 65 - 99 mg/dL [facility].; [facility], [facility]. Potassium [Moles/Vol] 4.0 mmol/L Normal 3.5 - 5.3 mmol/L [facility].; [facility], [employer] Protein [Mass/Vol] 7.2 g/dL Normal 6.1 - 8.1 g/dL [facility], [facility].; [facility], [facility] Sodium [Moles/Vol] 140 mmol/L Normal 135 - 146 mmol/L [facility].; [place] [employer], [employer] Triglyceride [Mass/Vol] 33 mg/dL Normal [facility].; [facility]. Urea nitrogen [Mass/Vol] 14 mg/dL Normal 7 - 25 mg/dL [facility].; [place] [employer]. No Panel Informationon 02-19 BUN/CREATININE RATIO SEE NOTE: Normal 6 - 22 [facility].; [place] [employer], [employer] CHOL/HDLC RATIO 2.1 Normal [facility].; [place] [employer] GLOBULIN 2.6 Normal 1.9 - 3.7 [facility].; [place] [employer], [employer] NON HDL CHOLESTEROL 84 Normal [facility].; [place] [employer], [employer] [place] 07-06-2023 EMILY Telephone ([facility]) EFRAIN OLGUIN ([id number]) 1990 F Date Time Provider Department 07/06/23 TITI VELASCO During your visit today, we recorded the following information about you: Titi Velasco APRN.CNP 07/06/2023 8:14 AM Signed Please notify patient positive for flu B. Patient is past treatment window for antivirals Flu is typically 5-7 days of illness Otc management advised, push fluids F/u for worsening s/s. -If you experience chest pain/shortness of breath go to ER Cody Lan MA 07/06/2023 3:39 PM Signed Patient notified of results, verbalized understanding of instructions given. Cody Lan MA Allergies As of Date: 07/06/2023 (Not on File) Date Reviewed: 07/05/2023 Reviewed by: Efrain Saravia MA - Fully Assessed Reason for Visit: Results [95] Problem List As Of Date: 07/06/2023 (None) Encounter Status:Closed by CODY LAN on 07/06/23 [facility] CNOVon 07-05-2023 CNOV Office Visit ([facility]) OLGUINEFRAIN MARTINEZ ([id number]) 1990 F Date Time Provider Department 07/05/23 9:15 AM DELMAR LEGGETT During your visit today, we recorded the following information about you: Temperature Pulse Respiration Blood pressure 100.8 degrees 113/minute 21/minute 112/70 Weight 62.9 kg Delmar Leggett APRN.CNP 07/05/2023 9:42 AM Signed CC: Patient presents with: Sore Throat: Fever, cough x 4 days HPI: Efrain Mcpherson Clau is a 33 year old female who presents to the office with complaint of cough, nonproductive, sore throat, and fever for a few days. Symptoms are improving Associated symptoms includes headache and body aches. Denies nausea, vomiting , and diarrhea. Treatments tried include nothing so far. with no relief of symptoms. Sick contacts: unknown. History of asthma, frequent episodes of bronchitis, chronic bronchitis, bronchiectasis or COPD: No Smoker: No Seasonal/environment al allergies: No The ROS is otherwise negative. The patient's pmh, medications, allergies, and past visits are reviewed. PHYSICAL EXAM: BP 112/70 Pulse 113 Temp (!) 38.2 ?C (100.8 ?F) Resp 21 Wt 62.9 kg (138 lb 9.6 oz) SpO2 97% General appearance: alert, cooperative, pleasant, in no acute distress Head: Normocephalic Eyes: EOM's intact, conjunctiva pink and moist, no icterus, sclera white, non-injected Ears: Right ear: External ear/canal- Normal, TM - clear with good landmarks. Left ear: External ear/canal- Normal, TM - clear with good landmarks Oropharynx:moist without lesions, No erythema, exudates or tonsillar hypertrophy. Heart: Negative. RRR without obvious murmur, gallop, or rubs. No ectopy. Lungs: clear to auscultation, without rales or wheeze, good air exchange No past medical history on file. No past surgical history on file. ALLERGIES Patient has no allergy information on record. MEDICATIONS No prescriptions on file. No family history on file. Social History Tobacco Use Smoking status: Never Passive exposure: Past Smokeless tobacco: Never ASSESSMENT/PLAN: 1. Sore throat - ICD9: 462, ICD10: J02.9 (primary diagnosis) - STREP A MOLECULAR (POC) - neg 2. URI, acute - ICD9: 465.9, ICD10: J06.9 Covid ordered. Prescription instructions reviewed with patient as applicable. Potential red flag symptoms discussed with the patient. Reviewed appropriate action plan to take if red flag symptoms occur. Patient agreeable to treatment plan. Delmar Leggett APRN.SOUND ART INSTRUCTOR Allergies As of Date: 07/05/2023 (Not on File) Date Reviewed: 07/05/2023 Reviewed by: Efrain Saravia MA - Fully Assessed Reason for Visit: Sore Throat [200] Cmt: Fever, cough x 4 days Primary Visit Diagnosis:Sore throat [J02.9] Other Visit Diagnosis:URI, acute [J06.9] Order(s):STREP A MOLECULAR (POC) [3182572] Order #: [id number]. #:[id number] COVID AND INFLUENZA A/B AND RSV NAAT, ROUTINE [SQCVFLRS] Order #: [id number] FUTURE COVID AND INFLUENZA A/B AND RSV NAAT, ROUTINE [SQCVFLRS] Order #: [id number]. #:[id number] Problem List As Of Date: 07/05/2023 (None) Encounter Status:Closed by DELMAR LEGGETT on 07/05/23 Normal [facility] COVID AND INFLUENZA A/B AND RSV NAAT, ROUTINEon 07-05-2023 SARS-CoV-2 (COVID-19) RNA STACI+probe Ql (Unsp spec) COVID 19 RESULT: Not detected The method used is RT-PCR or an equivalent NAAT method. Reference Range (the expected result in uninfected individuals): Not detected INFLUENZA A PCR: Not detected INFLUENZA B PCR: Detected RSV PCR: Not detected Abnormal [facility] Comment on above: Performed By: #### C VFLRS #### [facility] CLIA [id number] [address] [place] [address] [place] STREP A MOLECULAR (POC)on Procedural Control Valid [facility] Strep A (POCT) Negative Negative [facility] US SOFT TISSUE NECK/HEADon 0 06-20-2021 SOFT TISSUE NECK/HEAD [place] [address] Patient: EFRAIN OLGUIN Phone#: : 1990 Age: 31 Gender: F Pt. Type: Out Account: [id number] Location: Ordering: BARAK CORRALES Exam Date: 06/20/2021/7:44 Family Phys: JIM THORNTON Charge Code: 914455 Physician: Wilson Order #: [id number] DLP Dose#: PROCEDURE: SOFT TISSUE NECK/HEAD COMPARISON: None. INDICATIONS: Lymphadenopathy TECHNIQUE: Sonography was performed of the clinically requested area of interest. FINDINGS: REGION IMAGED: Soft tissue neck MASSES: In the area of palpable concern on the right there is an enlarged lymph node measuring 3.1 x 0.9 x 2.8 cm. There is effacement of the fatty hilum. A smaller lymph node is seen in the right adjacent to the job measuring 1.4 cm. Multiple reactive appearing lymph nodes are seen on the right. In the soft tissues inferior to the left jaw there is a small lymph node measuring 0.6 cm. Additional reactive appearing lymph nodes are present on the left. FLUID COLLECTIONS: None. No abnormal fluid collection. OTHER: Negative. CONCLUSION: 1. ENLARGED RIGHT-SIDED LYMPH NODES. IF THIS DOES NOT RESOLVE RECOMMEND FURTHER EVALUATION WITH FINE NEEDLE ASPIRATION. Dictated by: Isela Adair MD on 06/20/2021 at 13:44 Approved by: Isela Adair MD on 06/20/2021 at 13:49 Normal [facility] CHEST 2 VIEWSon 06-15-2021 CHEST 2 VIEWS [place] [address] Patient: EFRAIN OLGUIN Phone#: : 1990 Age: 31 Gender: F Pt. Type: Out Account: [id number] Location: Ordering: BARAK CORRALES Exam Date: 06/15/2021/9:14 Family Phys: Charge Code: 473755 Physician: Wilson Order #: [id number] DLP Dose#: PROCEDURE: X-RAY CHEST 2 VIEWS COMPARISON: None. INDICATIONS: Cough FINDINGS: LUNGS: Normal. No significant pulmonary parenchymal abnormalities. VASCULATURE: Normal. Unremarkable pulmonary vasculature. CARDIAC: Normal. No cardiac silhouette abnormality or cardiomegaly. MEDIASTINUM: Normal. No visible mass or adenopathy. PLEURA: Normal. No effusion or pleural thickening. BONES: Normal. No fracture or visible bony lesion. OTHER: Negative. CONCLUSION: No acute disease. Dictated by: Yuridia Jama MD on 06/15/2021 at 11:27 Approved by: Yuridia Jama MD on 06/15/2021 at 11:28 Normal [facility] Laboratory - Chemistry and C hemistry - challengeon 06-13-2021 Calcium [Mass/Vol] 8.8 mg/dL Normal 8.6 - 10. 2 mg/dL [facility], [facility].; [place] [employer] [facility], [facility]. Chloride [Moles/Vol] 104 mmol/L Normal 98 - 11 0 mmol/L [facility], [facility].; [place] [employer] [facility], [facility] CO2 [Moles/Vol] 25 mmol/L Normal 20 - 32 mmol/L [facility], [facility].; [facility], [facility] Creatinine [Mass/Vol] 0.65 mg/dL Normal 0.50 - 1.10 mg/dL [facility], [facility].; [place] [employer] [facility], [employer] GFR/1.73 sq M.predicted among blacks MDRD (S/P/Bld) [Vol rate/Area] 135 mL/min/{1.73_m2} Normal [facility], [facility].; [place] [employer] [facility], [employer] Glucose [Mass/Vol] 82 mg/dL Normal 65 - 99 mg/dL [facility].; [place] [employer] Potassium [Moles/Vol] 4.0 mmol/L Normal 3.5 - 5.3 mmol/L [facility], [facility].; [place] [employer] Sodium [Moles/Vol] 137 mmol/L Normal 135 - 146 mmol/L [facility], [facility].; [place] [employer] Urea nitrogen [Mass/Vol] 9 mg/dL Normal 7 - 25 mg/dL [facility], [facility].; [place] [employer], [employer] Laboratory - Hematology and Cell countson 06-13-2021 Basophils (Bld) [#/Vol] 0.041 10*3/uL Normal 0 - 200 {cells/uL} [place] [employer] [facility], [facility].; [place] [employer], [employer] Basophils/100 WBC (Bld) 0.5 % Normal [facility] [employer], [facility].; [place] [employer] Eosinophils (Bld) [#/Vol] 0.081 10*3/uL Normal 15 - 500 {cells/uL} [facility].; [facility] Eosinophils/100 WBC (Bld) 1.0 % Normal [facility].; [facility], [facility] Erythrocyte distribution width (RBC) [Ratio] 11.8 % Normal 11.0 - 15.0 % [facility], [facility].; [facility], [facility] Hematocrit (Bld) [Volume fraction] 37.3 % Normal 35.0 - 45.0 % [facility].; [facility], [facility] Hemoglobin (Bld) [Mass/Vol] 12.6 g/dL Normal 11.7 - 15.5 g/dL [facility].; [facility], [facility] Lymphocytes (Bld) [#/Vol] 1.742 10*3/uL Normal 850 - 3900 {cells/uL} [facility], [facility].; [facility], [facility] Lymphocytes/100 WBC (Bld) 21.5 % Normal [facility].; [place] [employer], [facility]. MCH (RBC) [Entitic mass] 30.7 pg Normal 27.0 - 33.[address] [facility].; [place] [employer] [facility], [facility]. MCHC (RBC) [Mass/Vol] 33.8 g/dL Normal 32.0 - 36.0 g/dL [facility], [facility].; [place] [employer] [facility], [facility]. MCV (RBC) [Entitic vol] 91.0 fL Normal 80.0 - 100.[address] [facility].; [facility], [facility]. Monocytes (Bld) [#/Vol] 0.786 10*3/uL Normal 200 - 950 {cells/uL} [facility], [facility].; [place] [employer], [facility]. Monocytes/100 WBC (Bld) 9.7 % Normal [facility].; [facility], [facility]. Neutrophils (Bld) [#/Vol] 5.451 10*3/uL Normal 1500 - 7800 {cells/uL} [facility], [facility].; [place] [employer], [facility]. Neutrophils/100 WBC (Bld) 67.3 % Normal [facility].; [employer]. Platelet mean volume (Bld) [Entitic vol] 10.3 fL Normal 7.5 - 12.5 fL [facility].; [employer]. Platelets (Bld) [#/Vol] 301 10*3/uL Normal 140 - 400 [place] [employer].; [employer]. RBC (Bld) [#/Vol] 4.10 10*6/uL Normal 3.80 - 5.1 0 {Million/uL} [place] [employer].; [employer]. WBC (Bld) [#/Vol] 8.1 10*3/uL Normal 3.8 - 10.8 [place] [employer].; [employer]. No Panel Informationon 06-13 BUN/CREATININE RATIO NOT APPLICABLE Normal [place] [employer]; [employer] eGFR NON-AFR. UZBEK 117 Normal [place] [employer].; [employer]. Laboratory - Urinalysison Glucose Test strip (U) [Mass/Vol] Negative Normal [place] [employer].; [employer]. Protein Ql (U) Negative Normal [facility] [employer]. Laboratory - Urinalysison Glucose Test strip (U) [Mass/Vol] Negative Normal [place] [employer].; [employer]. Protein Ql (U) Negative Normal [facility].; [employer]. Laboratory - Microbiology an d Antimicrobial susceptibilityon 08-14-2015 S. agalactiae Org specific cx Ql (Vag fld) CULTURE VAGINAL GROUP B Normal [employer].; [employer]. Laboratory - Urinalysison Glucose Test strip (U) [Mass/Vol] Negative Normal [employer].; [employer]. Protein Ql (U) Negative Normal [facility].; [employer]. Laboratory - Urinalysison Glucose Test strip (U) [Mass/Vol] Negative Normal [employer].; [employer] Protein Ql (U) Negative Normal [facility] [employer].; [employer], [employer] Laboratory - Urinalysison Glucose Test strip (U) [Mass/Vol] Negative Normal [place] [employer].; [employer] Protein Ql (U) Negative Normal [facility].; [employer] Laboratory - Urinalysison Glucose Test strip (U) [Mass/Vol] Negative Normal [employer].; [employer], [employer] Protein Ql (U) Negative Normal [facility].; [employer], [employer] Laboratory - Chemistry and C hemistry - challengeon 06-12-2015 Glucose 3 Hr post 100 g glucose PO [Moles/Vol] GLUCOSE TOLERANCE-3 HOUR Normal [place] [employer].; [employer]. Laboratory - Chemistry and C hemistry - challengeon 06-05-2015 Glucose 1 Hr post 50 g glucose PO [Moles/Vol] GLUCOSE CHALLENGE 50GM 1 HOUR Normal [employer].; [employer]. Glucose [Mass/Vol] 145 mg/dL Abnormal 70 - 140 mg/dL [facility] [employer].; [employer], [employer] Laboratory - Hematology and Cell countson 06-05-2015 Hemoglobin (Bld) [Mass/Vol] 11.0 g/dL Abnormal 12.0 - 16.0 g/dL [place] [employer].; [employer], [employer]. Laboratory - Urinalysison Glucose Test strip (U) [Mass/Vol] Negative Normal [employer].; [employer]. Protein Ql (U) Negative Normal [facility] [employer].; [employer], [employer] Laboratory - Urinalysison Glucose Test strip (U) [Mass/Vol] Negative Normal [employer].; [employer] Protein Ql (U) Negative Normal [facility] [employer].; [employer] Laboratory - Urinalysison Glucose Test strip (U) [Mass/Vol] Negative Normal [employer].; [employer]. Protein Ql (U) Negative Normal [facility].; [employer]. Laboratory - Urinalysison Glucose Test strip (U) [Mass/Vol] Negative Normal [facility] [employer].; [employer]. Protein Ql (U) Negative Normal [facility].; [employer]. Laboratory - Blood bankon ABO group Nom (Bld) O Normal [facility].; [employer]. Blood group antibody screen Ql Negative Normal [place] [employer].; [employer]. Laboratory - Chemistry and C hemistry - challengeon 02-15-2015 Bilirubin Ql (U) Negative Normal [facility].; [employer]. Ketones Ql (U) Negative Normal [facility].; [employer]. pH (U) 6.0 [pH] Normal [place] [employer].; [employer]. Specific gravity (U) [Rel density] 1.025 Normal [employer].; [employer]. TSH Qn 0.48 m[IU]/L Normal 0.40 - 4.50 {mIU/L} [place] [employer].; [employer]. Urobilinogen Qn (U) 0.2 mg/dL Normal [facility].; [employer]. Laboratory - Hematology and Cell countson 02-15-2015 Basophils (Bld) [#/Vol] 20 {Cells}/uL Normal 0 - 200 {Cells}/uL [place] [employer].; [employer]. Basophils/100 WBC (Bld) 0 % Normal 0 - 1 % [employer].; [employer]. Eosinophils (Bld) [#/Vol] 100 {Cells}/uL Normal 15 - 500 {Cells}/uL [employer].; [employer]. Eosinophils/100 WBC (Bld) 1 % Normal 0 - 4 % [employer].; [employer]. Erythrocyte distribution width (RBC) [Ratio] 12.9 % Normal 11.0 - 15.0 % [facility].; [facility], [facility] Hematocrit (Bld) [Volume fraction] 38.9 % Normal 35.0 - 45.0 % [facility].; [facility], [facility] Hemoglobin (Bld) [Mass/Vol] 13.0 g/dL Normal 11.7 - 15.5 g/dL [facility].; [facility], [facility] Hemoglobin Ql (U) small Abnormal [facility].; [facility], [facility] Lymphocytes (Bld) [#/Vol] 2430 {Cells}/uL Normal 850 - 3900 {Cells}/uL [facility].; [facility], [facility] Lymphocytes/100 WBC (Bld) 17 % Normal 12 - 47 % [facility], [facility].; [facility], [facility] MCH (RBC) [Entitic mass] 31.5 pg Normal 27.0 - 33.[address] [facility].; [facility], [facility]. MCHC (RBC) [Mass/Vol] 33.5 g/dL Normal 32.0 - 36.0 g/dL [facility].; [facility], [facility]. MCV (RBC) [Entitic vol] 93.9 fL Normal 80.0 - 100.[address] [facility].; [facility], [facility] Monocytes (Bld) [#/Vol] 700 {Cells}/uL Normal 200 - 950 {Cells}/uL [facility].; [facility], [facility]. Monocytes/100 WBC (Bld) 5 % Normal 4 - 12 % [facility].; [facility], [facility]. Neutrophils (Bld) [#/Vol] 28768 {Cells}/uL Abnormal 1500 - 7800 {Cells}/uL [facility].; [facility], [facility]. Neutrophils/100 WBC (Bld) 77 % Abnormal 40 - 75 % [facility].; [place] [employer] [facility], [facility] Platelet mean volume (Bld) [Entitic vol] 8.8 fL Normal 7.5 - 11.5 fL [facility].; [facility] Platelets (Bld) [#/Vol] 271 10*3/uL Normal 140 - 400 10*3/uL [facility]; [facility] RBC (Bld) [#/Vol] 4.14 10*6/uL Normal 3.80 - 5.1 0 10*6/uL [facility].; [facility]. WBC (Bld) [#/Vol] 13.9 10*3/uL Abnormal 3.8 - 10.8 10*3/uL [facility].; [place] [employer] [facility] Laboratory - Microbiology an d Antimicrobial susceptibilityon 02-15-2015 HBV surface Ag IA Ql Non-Reactive Normal [facility]; [facility] Reagin Ab RPR Ql (S) Non-Reactive Normal [facility]; [place] [facility] Rubella virus IgG Qn (S) 2.54 [IU]/mL Normal [facility]; [place] [employer] Laboratory - Specimen inform ationon 02-15-2015 Appearance (U) clear Normal [facility] [employer]; [place] [employer] Color (U) yellow Normal [facility]; [place] [employer] [facility] Laboratory - Urinalysison Glucose Test strip (U) [Mass/Vol] Negative Normal [facility].; [place] [employer] Leukocyte esterase Test strip Ql (U) trace Normal [facility].; [place] [employer] Nitrite Ql (U) Negative Normal [facility] [employer].; [place] [employer] Protein Ql (U) trace Normal [facility] [place] [employer] No Panel Informationon 02-15 RH TYPE Positive Normal [facility]; [place] [employer] Laboratory - Microbiology an d Antimicrobial susceptibilityon 09-01-2014 S. pyogenes Ag EIA Ql (Throat) Negative Normal [facility] [place] [employer] Laboratory - Chemistry and C hemistry - challengeon 07-05-2014 Bilirubin Ql (U) Negative [facility] [employer]. Ketones Ql (U) Negative Normal [facility] [employer]. pH (U) 5.5 [pH] Normal [facility].; [employer]. Specific gravity (U) [Rel density] 1.[address] [facility].; [employer]. Urobilinogen Qn (U) 0.2 mg/dL Normal [facility].; [employer]. Laboratory - Hematology and Cell countson 07-05-2014 Hemoglobin Ql (U) small Abnormal [facility].; [employer]. Laboratory - Specimen inform ationon 07-05-2014 Appearance (U) clear Normal [facility] [employer]. Color (U) yellow Normal [place] [employer] [facility].; [employer]. Laboratory - Urinalysison Glucose Test strip (U) [Mass/Vol] Negative Normal [facility].; [employer]. Leukocyte esterase Test strip Ql (U) Negative Normal [facility].; [employer]. Nitrite Ql (U) Negative Normal [facility].; [employer]. Protein Ql (U) Negative Normal [facility].; [employer]. Laboratory - Blood bankon ABO group Nom (Bld) O Normal [facility].; [employer]. Work Phone: Blood group antibody screen Ql Negative Normal [facility] [employer].; [employer]. Work Phone: Blood type and Indirect antibody screen panel (Bld) Normal [place] [employer].; [employer]. Work Phone: Rh Nom (Bld) Positive Normal [facility] [employer].; [employer]. Work Phone: Laboratory - Hematology and Cell countson 06-30-2014 Basophils (Bld) [#/Vol] 0.00 {3/UL} Normal 0.00 - 0.10 {3/UL} [facility]; [facility] Work Phone: Basophils/100 WBC (Bld) 0.8 % Normal 0.0 - 2.0 % [facility]; [facility]. Work Phone: CBC W Auto Differential panel (Bld) CBC Normal [facility]; [place] [employer] [facility]. Work Phone: Eosinophils (Bld) [#/Vol] 0.10 {3/UL} Normal 0.00 - 0.50 {3/UL} [facility]; [facility] Work Phone: Eosinophils/100 WBC (Bld) 1.9 % Normal 0.0 - 7.0 % [facility]; [place] [employer]. Work Phone: Erythrocyte distribution width (RBC) [Ratio] 13.2 % Normal 12.0 - 15.6 % [facility]; [place] [employer] Work Phone: Hematocrit (Bld) [Volume fraction] 37.2 % Normal 34.0 - 46.0 % [facility]; [place] [employer] [facility] Work Phone: Hemoglobin (Bld) [Mass/Vol] 12.7 g/dL Normal 12.0 - 16.0 g/dL [facility]; [place] [employer]. Work Phone: Lymphocytes (Bld) [#/Vol] 1.60 {3/UL} Normal 0.80 - 2.80 {3/UL} [facility].; [place] [employer]. Work Phone: Lymphocytes/100 WBC (Bld) 27.2 % Normal 20.0 - 45.0 % [facility]; [place] [employer] Work Phone: MCH (RBC) [Entitic mass] 32 pg Normal 27 - [address] [facility].; [facility]. Work Phone: MCHC (RBC) [Mass/Vol] 34 {X10_3} Normal 32 - 3 6 {X10_3} [facility].; [facility]. Work Phone: MCV (RBC) [Entitic vol] 93 fL Normal 80 - [address] [facility].; [facility]. Work Phone: Monocytes (Bld) [#/Vol] 0.60 {3/UL} Normal 0.20 - 1.00 {3/UL} [facility].; [facility], [facility]. Work Phone: Monocytes/100 WBC (Bld) 9.4 % Normal 0.0 - 10.0 % [facility].; [facility], [facility]. Work Phone: Morphology Levy (Bld) [Interp] N/A Normal [facility]; [facility] [employer], [facility]. Work Phone: Neutrophils (Bld) [#/Vol] 3.60 {3/UL} Normal 1.50 - 7.10 {3/UL} [facility].; [facility], [employer]. Work Phone: Neutrophils/100 WBC (Bld) 60.7 % Normal 46.0 - 76.0 % [facility].; [facility], [employer]. Work Phone: Platelet mean volume (Bld) [Entitic vol] 7.6 fL Normal 6.6 - 10.5 fL [facility].; [place] [employer] Work Phone: Platelets (Bld) [#/Vol] 230 {3/UL} Normal 150 - 450 {3/UL} [facility].; [facility] [employer], [employer]. Work Phone: RBC (Bld) [#/Vol] 4.02 {6/UL} Abnormal 4.10 - 5.3 0 {6/UL} [facility] [employer].; [employer]. Work Phone: WBC (Bld) [#/Vol] 5.9 {3/UL} Normal 4.5 - 10.8 {3/UL} [place] [employer].; [employer]. Work Phone: No Panel Informationon 06-30 MANUAL DIFF N/A Normal [facility].; [employer]. Work Phone: Laboratory - Urinalysison Glucose Test strip (U) [Mass/Vol] Negative Normal [facility] [employer].; [employer]. Protein Ql (U) Negative Normal [facility].; [employer]. Laboratoryon 05-16-2014 Obstetric 1998 panel (S+Bld) OB PANEL Normal [facility].; [employer]. Laboratory - Blood bankon ABO group Nom (Bld) O Normal [facility].; [employer]. Blood group antibody screen Ql Negative Normal [facility] [employer] [facility].; [employer]. Rh Nom (Bld) Positive Normal [facility].; [employer]. Laboratory - Chemistry and C hemistry - challengeon 05-16-2014 Bilirubin Ql (U) Negative Normal [facility].; [employer]. Ketones Ql (U) Negative Normal [facility].; [employer]. pH (U) 7.0 [pH] Normal [place] [employer].; [employer]. Specific gravity (U) [Rel density] 1.025 Normal [place] [employer].; [employer]. TSH Qn 0.76 m[IU]/L Normal 0.34 - 5.60 {uIU/ml} [place] [employer].; [employer]. Urobilinogen Qn (U) 0.2 mg/dL Normal [facility].; FernandezYolto [facility] Laboratory - Hematology and Cell countson 05-16-2014 Basophils (Bld) [#/Vol] 0.00 {3/UL} Normal 0.00 - 0.10 {3/UL} [facility].; [facility] Basophils/100 WBC (Bld) 0.4 % Normal 0.0 - 2.0 % [facility].; [facility] Eosinophils (Bld) [#/Vol] 0.10 {3/UL} Normal 0.00 - 0.50 {3/UL} [facility].; [place] [employer] [facility] Eosinophils/100 WBC (Bld) 0.7 % Normal 0.0 - 7.0 % [facility].; [place] [employer] [facility], [facility] Erythrocyte distribution width (RBC) [Ratio] 12.5 % Normal 12.0 - 15.6 % [facility].; [place] [employer] [facility] Hematocrit (Bld) [Volume fraction] 37.8 % Normal 34.0 - 46.0 % [place] [employer] [facility].; [employer] [facility] Hemoglobin (Bld) [Mass/Vol] 13.0 g/dL Normal 12.0 - 16.0 g/dL [place] [employer] [facility].; [employer], [facility] Hemoglobin Ql (U) trace, hemolyzed Abnormal [facility].; [place] [employer] [facility], [facility] Lymphocytes (Bld) [#/Vol] 2.10 {3/UL} Normal 0.80 - 2.80 {3/UL} [place] [employer] [facility].; [employer] [facility] Lymphocytes/100 WBC (Bld) 19.4 % Abnormal 20.0 - 45.0 % [place] [employer] [facility].; [employer], [facility] MCH (RBC) [Entitic mass] 31 pg Normal 27 - 33 pg [place] [employer] [facility].; [place] [employer] [facility], [facility]. MCHC (RBC) [Mass/Vol] 34 {X10_3} Normal 32 - 3 6 {X10_3} [facility].; [place] [employer], [facility]. MCV (RBC) [Entitic vol] 91 fL Normal 80 - [address] [facility].; [place] [employer], [employer]. Monocytes (Bld) [#/Vol] 0.90 {3/UL} Normal 0.20 - 1.00 {3/UL} [place] [employer], [employer].; [place] [employer], [employer]. Monocytes/100 WBC (Bld) 8.7 % Normal 0.0 - 10.0 % [facility] [employer], [employer].; [place] [employer], [employer]. Morphology Levy (Bld) [Interp] N/A Normal [facility] [employer] [facility].; [place] [employer] Neutrophils (Bld) [#/Vol] 7.60 {3/UL} Abnormal 1.50 - 7.10 {3/UL} [place] [employer], [employer].; [place] [employer] Neutrophils/100 WBC (Bld) 70.8 % Normal 46.0 - 76.0 % [facility] [employer], [employer].; [place] [employer] Platelet mean volume (Bld) [Entitic vol] 8.6 fL Normal 6.6 - 10.5 fL [facility] [employer].; [employer] Platelets (Bld) [#/Vol] 276 {3/UL} Normal 150 - 450 {3/UL} [place] [employer].; [employer] RBC (Bld) [#/Vol] 4.16 {6/UL} Normal 4.10 - 5.3 0 {6/UL} [place] [employer], [employer].; [employer], [employer] WBC (Bld) [#/Vol] 10.7 {3/UL} Normal 4.5 - 10.8 {3/UL} [employer].; [employer] Laboratory - Specimen inform ationon 05-16-2014 Appearance (U) clear Normal [facility] [employer].; [employer], [employer]. Color (U) yellow Normal [place] [employer].; [employer], [employer] Laboratory - Urinalysison Glucose Test strip (U) [Mass/Vol] Negative Normal [place] [employer].; [employer] Leukocyte esterase Test strip Ql (U) Negative Normal [place] [employer].; [facility], [facility]. Nitrite Ql (U) Negative Normal [facility].; [place] [employer]. Protein Ql (U) Negative Normal [facility].; [place] [employer]. No Panel Informationon 05-16 MANUAL DIFF N/A Normal [facility].; [place] [employer]. RDW/SD 38.9 fL Normal 36.0 - 50.0 fL [facility].; [place] [employer]. Laboratory - Hematology and Cell countson 04-27-2013 Hemoglobin (Bld) [Mass/Vol] 13.1 g/dL Normal 11.5 - 14.2 g/dL [facility].; [place] [employer]. Laboratory - Cytologyon 10-25 Microscopic observation Cyto stain Nom (Cvx) SEE NOTE Normal [facility].; [place] [employer]. Laboratory - Microbiology an d Antimicrobial susceptibilityon 01-09-2011 S. pyogenes Ag EIA Ql (Throat) Negative Normal [facility].; [employer]. No Panel Informationon 01-09 MONOSPOT TEST (IN HOUSE) Negative Normal [facility].; [employer]. Laboratory - Cytologyon Microscopic observation Cyto stain Nom (Cvx) SEE NOTE Normal [facility].; [place] [employer]. Laboratory - Microbiology an d Antimicrobial susceptibilityon 11-01-2010 C. trachomatis DNA STACI+probe Ql (Unsp spec) Not detected Normal [facility].; [employer]. N. gonorrhoeae DNA STACI+probe Ql (Unsp spec) Not detected Normal [facility].; [employer]. Laboratory - Specimen inform ationon 11-01-2010 Specimen source Nom (Unsp spec) GENITAL-CX Normal [facility]; [place] [employer] Vital Signs Date Time Vital Sign Value Performing Clinician Facility 12-30-2024 07:54-0400 Body height 170.[address] Jim Thornton MD Work Phone: [facility] 12-30-2024 07:54-0400 Body temperature 98 [degF] Dr. Jim Thornton MD Work Phone: 1(635)[phone] [place] [address] 12-30-2024 07:54-0400 Diastolic blood pressure 76 mm[Hg] Dr. Jim Thornton MD Work Phone: [phone])552-749091 [address] 12-30-2024 07:54-0400 Heart rate 61 /min Dr. Jim Thornton MD Work Phone: 5(492)[phone] [address] 12-30-2024 07:54-0400 Respiratory rate 18 /min Dr. Jim Thornton MD Work Phone: [phone] [place] [address] 12-30-2024 07:54-0400 SaO2% (BldA) [Mass fraction] 97 % Dr. Jim Thornton MD Work Phone: 7([phone] [place] [address] 12-30-2024 07:54-0400 Systolic blood pressure 120 mm[Hg] Dr. Jim Thornton MD Work Phone: [phone])[phone] [place] [address] 12-03-2024 19:27-0400 Body temperature 98.6 [degF] Dr. iJm Thornton MD Work Phone: [phone])[phone] [place] [address] 12-03-2024 19:27-0400 Diastolic blood pressure 67 mm[Hg] Dr. Jim Thornton MD Work Phone: 5([phone] [address] 12-03-2024 19:27-0400 Heart rate 74 /min Dr. Jim Thornton MD Work Phone: 3([phone])[phone] [address] 12-03-2024 19:27-0400 Respiratory rate 18 /min Dr. Jim Thornton MD Work Phone: [phone] [address] 12-03-2024 19:27-0400 SaO2% (BldA) [Mass fraction] 100 % Dr. Jim Thornton MD Work Phone: [phone] [place] [address] 12-03-2024 19:27-0400 Systolic blood pressure 112 mm[Hg] Dr. Jim Thornton MD Work Phone: [phone] [place] [address] 12-03-2024 17:15-0400 Body height 170.[address] Jim Thornton MD Work Phone: [facility] 12-03-2024 17:15-0400 Body mass index (BMI) [Ratio] 26.6 kg/m2 Dr. Jim Thornton MD Work Phone: [facility] 12-03-2024 17:15-0400 Body weight 77.[address] Jim Thornton MD Work Phone: [facility] 12-03-2024 09:55-0400 Body height 167.64 cm Gabriella Duvall MA [facility], [facility].; [facility], [facility]. 12-03-2024 09:55-0400 Body mass index (BMI) [Ratio] 24.37 kg/m2 Gabriella Duvall MA [facility], [facility].; [facility]. 12-03-2024 09:55-0400 Body surface area Derived from formula 1.78 m2 Gabriella Duvall MA [facility], [facility].; [facility], [facility]. 12-03-2024 09:55-0400 Body weight 68.49 kg Gabriella Duvall MA [facility], [facility].; [facility], [facility]. 12-03-2024 09:55-0400 Diastolic blood pressure 80 mm[Hg] Gabriella Duvall MA [facility].; [facility] Comment on above: Patient Position: Sitting; Cuff Location : Left Arm; Cuff Size: Standard 12-03-2024 09:55-0400 Heart rate 60 /min Gabriella Duvall MA [facility], [facility].; [facility] Comment on above: Pattern: Regular 12-03-2024 09:55-0400 Systolic blood pressure 114 mm[Hg] Gabriella Duvall MA [facility], [facility].; [facility], [facility]. Comment on above: Patient Position: Sitting; Cuff Location : Left Arm; Cuff Size: Standard 11-29-2024 08:58-0400 Body height 167.64 cm Myriam CONTE [facility], [facility].; [facility] 11-29-2024 08:58-0400 Body mass index (BMI) [Ratio] 25.18 kg/m2 Myriam Key [facility] 11-29-2024 08:58-0400 Body surface area Derived from formula 1.8 m2 Myriam Key [facility].; [facility] 11-29-2024 08:58-0400 Body temperature 98.6 [degF] Myriam Key [facility].; [facility] Comment on above: Method: Tympanic 11-29-2024 08:58-0400 Body weight 70.76 kg Myriam Key [facility].; [facility], [facility]. 11-29-2024 08:58-0400 Diastolic blood pressure 77 mm[Hg] Myriam Key [facility], [facility].; [place] [employer] [facility] Comment on above: Patient Position: Sitting; Cuff Location : Left Arm; Cuff Size: Standard 11-29-2024 08:58-0400 Heart rate 66 /min Myriam Key [facility].; [place] [employer] [facility] Comment on above: Pattern: Regular 11-29-2024 08:58-0400 Systolic blood pressure 119 mm[Hg] Myriam Key [facility], [facility].; [place] [employer] [facility] Comment on above: Patient Position: Sitting; Cuff Location : Left Arm; Cuff Size: Standard 03-05-2024 09:07-0400 Body height 167.64 cm Bebe Manley MA [facility], [facility].; [facility], [facility]. 03-05-2024 09:07-0400 Body mass index (BMI) [Ratio] 23.56 kg/m2 Bebe Manley MA [facility] [employer] 03-05-2024 09:07-0400 Body surface area Derived from formula 1.[address] [facility], [facility].; [facility], [facility]. 03-05-2024 09:07-0400 Body weight 66.23 [address] MA [facility], [facility].; [place] [facility], [facility]. 03-05-2024 09:07-0400 Diastolic blood pressure 67 mm[Hg] Bebe Manley [facility].; [facility]. Comment on above: Patient Position: Sitting; Cuff Location : Left Arm; Cuff Size: Standard 03-05-2024 09:07-0400 Heart rate 56 /min Bebe Manley [facility].; [facility] Comment on above: Pattern: Regular 03-05-2024 09:07-0400 Systolic blood pressure 102 mm[Hg] Bebe Manley [facility].; [facility]. Comment on above: Patient Position: Sitting; Cuff Location : Left Arm; Cuff Size: Standard 07-05-2023 09:23-0500 Body temperature 100.8 [degF] Delmar Leggett APRN.SOUND ART INSTRUCTOR Work Phone: [facility] 07-05-2023 09:23-0500 Body weight 62.87 kg Delmar Leggett APRN.[employer] ART INSTRUCTOR Work Phone: [facility] 07-05-2023 09:23-0500 Diastolic blood pressure 70 mm[Hg] Delmar Leggett APRN.[employer] ART INSTRUCTOR Work Phone: [facility] 07-05-2023 09:23-0500 Heart rate 113 /min Delmar Leggett APRN.[employer] ART INSTRUCTOR Work Phone: [facility] 07-05-2023 09:23-0500 Respiratory rate 21 /min Delmar Leggett APRN.[employer] ART INSTRUCTOR Work Phone: [facility] 07-05-2023 09:23-0500 SaO2% (BldA) [Mass fraction] 97 % Delmar Leggett APRN.SOUND ART INSTRUCTOR Work Phone: [facility] 07-05-2023 09:23-0500 Systolic blood pressure 112 mm[Hg] Delmar Leggett APRN.SOUND ART INSTRUCTOR Work Phone: [facility] 01-29-2023 13:03-0400 Body height 167.64 cm Gabriella Duvall [facility].; [facility]. 01-29-2023 13:03-0400 Body mass index (BMI) [Ratio] 23.08 kg/m2 Gabriella Duvall MA [facility].; [facility], [facility]. 01-29-2023 13:03-0400 Body surface area Derived from formula 1.73 m2 Gabriella Duvall MA [facility].; [facility] 01-29-2023 13:03-0400 Body weight 64.86 kg Gabriella Duvall MA [facility].; [facility], [facility]. 01-29-2023 13:03-0400 Diastolic blood pressure 73 mm[Hg] Gabriella Duvall [facility].; [place] [employer] [employer] [facility], [employer]. Comment on above: Patient Position: Sitting; Cuff Location : Left Arm; Cuff Size: Standard 01-29-2023 13:03-0400 Heart rate 66 /min Gabriella Duvall [facility].; [place] [employer] [employer] [facility]. Comment on above: Pattern: Regular 01-29-2023 13:03-0400 Systolic blood pressure 114 mm[Hg] Gabriella Duvall MA [facility].; [place] [employer] [facility]. Comment on above: Patient Position: Sitting; Cuff Location : Left Arm; Cuff Size: Standard 11-11-2022 14:39-0400 Body height 167.64 cm Ericka Kovacs RN [facility].; [place] [employer] [facility]. 11-11-2022 14:39-0400 Body mass index (BMI) [Ratio] 22.92 kg/m2 Ericka Kovacs RN [facility].; [place] [employer] [facility]. 11-11-2022 14:39-0400 Body surface area Derived from formula 1.73 m2 Ericka Kovacs RN [place] [employer] [facility].; [place] [employer] [facility] [facility] 11-11-2022 14:39-0400 Body temperature 99.4 [degF] [facility]ovacs [facility] [employer]. Comment on above: Method: Tympanic 11-11-2022 14:39-0400 Body weight 64.41 kg Ericka Kovacs [facility]. 11-11-2022 14:39-0400 Diastolic blood pressure 63 mm[Hg] Ericka Kovacs RN [facility]. Comment on above: Patient Position: Sitting; Cuff Location : Left Arm; Cuff Size: Standard 11-11-2022 14:39-0400 Heart rate 66 /min Ericka Kovacs [facility].; [facility] [employer]. Comment on above: Pattern: Regular 11-11-2022 14:39-0400 Systolic blood pressure 100 mm[Hg] Ericka [facility]ovacs [facility] Comment on above: Patient Position: Sitting; Cuff Location : Left Arm; Cuff Size: Standard 10-22-2022 08:43-0400 Body height 167.64 cm Bebe Manley [facility].; [facility]. 10-22-2022 08:43-0400 Body mass index (BMI) [Ratio] 23.24 kg/m2 Bebe Manley [facility].; [facility], [facility]. 10-22-2022 08:43-0400 Body surface area Derived from formula 1.74 m2 Bebe Manley MA [facility].; [facility]. 10-22-2022 08:43-0400 Body temperature 98.5 [degF] [facility].; [place] [employer]. Comment on above: Method: Tympanic 10-22-2022 08:43-0400 Body weight 65.32 kg Bebe Manley [facility].; [facility]. 10-22-2022 08:43-0400 Diastolic blood pressure 72 mm[Hg] Bebe Manley [facility].; [place] [employer]. Comment on above: Patient Position: Sitting; Cuff Location : Left Arm; Cuff Size: Standard 10-22-2022 08:43-0400 Heart rate 66 /min Bebe Manley [facility].; [place] [employer]. Comment on above: Pattern: Regular 10-22-2022 08:43-0400 Inhaled oxygen concentration 21 % Bebe Manley MA [facility].; [place] [employer] [facility] Comment on above: Room air 10-22-2022 08:43-0400 SaO2% (BldA) [Mass fraction] 99 % Bebe Manley MA [facility] [place] [employer] 10-22-2022 08:43-0400 Systolic blood pressure 112 mm[Hg] Bebe Malney MA [facility].; [place] [employer]. Comment on above: Patient Position: Sitting; Cuff Location : Left Arm; Cuff Size: Standard 06-13-2021 09:19-0500 Body height 167.64 cm Adriana Omalley LPN [facility], [facility].; [facility]. 06-13-2021 09:19-0500 Body mass index (BMI) [Ratio] 25.34 kg/m2 Adriana Omalley LPN [facility], [facility].; [place] [employer] [facility], [facility]. 06-13-2021 09:19-0500 Body surface area Derived from formula 1.8 m2 Adriana Omalley LPN [facility], [facility].; [place] [employer] [facility], [employer]. 06-13-2021 09:19-0500 Body temperature 99.2 [degF] Adriana Omalley LPN [facility], [facility].; [employer]. Comment on above: Method: Tympanic 06-13-2021 09:190500 Body weight 71.22 kg Adriana Omalley LPN [facility], [facility].; [place] [employer]. 06-13-2021 09:19-0500 Diastolic blood pressure 72 mm[Hg] Adriana [facility]malley [facility].; [employer]. Comment on above: Patient Position: Sitting; Cuff Location : Left Arm; Cuff Size: Standard 06-13-2021 09:19-0500 Heart rate 71 /min Adriana Omalley LPN [facility], [facility].; [employer]. Comment on above: Pattern: Regular 06-13-2021 09:19-0500 Inhaled oxygen concentration 21 % Adriana Omalley LPN [facility], [facility].; [employer] [facility], [employer]. Comment on above: Room air 06-13-2021 09:19-0500 SaO2% (BldA) [Mass fraction] 100 % Adriana Omalley LPN [facility], [facility].; [facility]. 06-13-2021 09:19-0500 Systolic blood pressure 114 mm[Hg] Adriana Omalley LPN [facility], [facility].; [place] [employer] [facility], [employer]. Comment on above: Patient Position: Sitting; Cuff Location : Left Arm; Cuff Size: Standard 06-28-2019 13:24-0500 Body height 167.64 cm Ragini Codylynn [employer] [facility].; [facility]. 06-28-2019 13:24-0500 Body mass index (BMI) [Ratio] 24.37 kg/m2 Ragini Codylynn [employer] [facility].; [place] [employer] [facility], [employer]. 06-28-2019 13:24-0500 Body surface area Derived from formula 1.78 m2 Raginijudie Codylynn [employer]ED [employer] [facility].; [place] [employer] [facility], [facility]. 06-28-2019 13:24-0500 Body temperature 102 [degF] Raginijudie Codylynn [facility] [employer] [facility], [facility].; [place] [employer], [employer]. Comment on above: Method: Tympanic 06-28-2019 13:24-0500 Body weight 68.49 kg Ragini Codylynn GANNON [facility] [place] [employer] [facility] 06-28-2019 13:24-0500 Diastolic blood pressure 64 mm[Hg] Ragini Codylynn GANNON [facility], [facility].; [employer], [employer]. Comment on above: Patient Position: Sitting; Cuff Location : Left Arm; Cuff Size: Standard 06-28-2019 13:24-0500 Heart rate 122 /min Ragini Codylynn [employer] [place] [employer] [facility], [facility].; [employer], [employer]. Comment on above: Pattern: Regular 06-28-2019 13:24-0500 Inhaled oxygen concentration 21 % Raginijudie Codylynn [employer] [facility].; [employer], [employer]. Comment on above: Room air 06-28-2019 13:24-0500 SaO2% (BldA) [Mass fraction] 97 % Ragini Chauhan [facility] [employer] [facility].; [employer]. 06-28-2019 13:24-0500 Systolic blood pressure 104 mm[Hg] Ragini Chauhan [employer] [facility] [employer].; [employer]. Comment on above: Patient Position: Sitting; Cuff Location : Left Arm; Cuff Size: Standard 11-03-2017 14:35-0400 Body height 167.64 cm Erika Nair [employer] Work Phone: [employer].; [employer]. 11-03-2017 14:35-0400 Body mass index (BMI) [Ratio] 26.47 kg/m2 Erika Joanie [employer] Work Phone: [employer].; [employer]. 11-03-2017 14:35-0400 Body surface area Derived from formula 1.84 m2 Erika Joanie [employer] Work Phone: [employer].; [employer]. 11-03-2017 14:35-0400 Body temperature 99.2 [degF] Erika Nair [employer] Work Phone: [employer].; [employer]. Comment on above: Method: Tympanic 11-03-2017 14:35-0400 Body weight 74.39 kg Erika Nair [employer] Work Phone: [employer].; [employer]. 11-03-2017 14:35-0400 Diastolic blood pressure 73 mm[Hg] Erika Nair [employer] Work Phone: [employer].; [employer]. Comment on above: Patient Position: Sitting; Cuff Location : Left Arm; Cuff Size: Standard 11-03-2017 14:35-0400 Heart rate 82 /min Erika Nair [employer] Work Phone: [employer].; [employer]. Comment on above: Pattern: Regular 11-03-2017 14:35-0400 Systolic blood pressure 118 mm[Hg] Erika Nair LPN Work Phone: [facility] [employer]. Comment on above: Patient Position: Sitting; Cuff Location : Left Arm; Cuff Size: Standard 08-26-2017 14:55-0400 Body height 167.64 cm Esperanza Smith LPN [facility] [employer] 08-26-2017 14:55-0400 Body mass index (BMI) [Ratio] 25.02 kg/m2 Esperanza Smith [facility].; [employer] 08-26-2017 14:55-0400 Body surface area Derived from formula 1.79 m2 Esperanza Smith [facility].; [employer], [employer]. 08-26-2017 14:55-0400 Body temperature 100.2 [degF] Esperanza Smith [facility] [employer] [facility] [employer], [employer]. Comment on above: Method: Tympanic 08-26-2017 14:55-0400 Body weight 70.31 kg Esperanza Smith [facility] [employer] [facility].; [employer] 08-26-2017 14:55-0400 Diastolic blood pressure 79 mm[Hg] Esperanza Smith LPN [facility] [employer] Comment on above: Patient Position: Sitting; Cuff Location : Left Arm; Cuff Size: Large 08-26-2017 14:55-0400 Heart rate 94 /min Esperanza Smith [facility], [facility].; [employer], [employer]. Comment on above: Pattern: Regular 08-26-2017 14:55-0400 Systolic blood pressure 118 mm[Hg] Esperanza Smith [facility] [employer] [facility] [employer], [employer]. Comment on above: Patient Position: Sitting; Cuff Location : Left Arm; Cuff Size: Large 08-28-2015 09:43-0400 Body weight 74.84 kg Erika Nair LPN Work Phone: [place] [employer] [facility], [employer].; [employer]. 08-28-2015 09:43-0400 Diastolic blood pressure 71 mm[Hg] Erika Joanie [employer] Work Phone: [employer].; [employer]. Comment on above: Patient Position: Sitting; Cuff Location : Left Arm; Cuff Size: Standard 08-28-2015 09:43-0400 Heart rate 67 /min Erika Joanie [employer] Work Phone: [employer].; [employer]. Comment on above: Pattern: Regular 08-28-2015 09:43-0400 Systolic blood pressure 121 mm[Hg] Erika Joanie [employer] Work Phone: [employer].; [employer]. Comment on above: Patient Position: Sitting; Cuff Location : Left Arm; Cuff Size: Standard 08-23-2015 16:01-0400 Body weight 76.2 kg Erika Joanie [employer] Work Phone: [employer].; [employer]. 08-23-2015 16:01-0400 Diastolic blood pressure 71 mm[Hg] Erika Joanie [employer] Work Phone: [employer].; [employer]. Comment on above: Patient Position: Sitting; Cuff Location : Left Arm; Cuff Size: Standard 08-23-2015 16:01-0400 Heart rate 76 /min Erika Joanie [employer] Work Phone: [employer].; [employer]. Comment on above: Pattern: Regular 08-23-2015 16:01-0400 Systolic blood pressure 124 mm[Hg] Erika Joanie [employer] Work Phone: [employer].; [employer]. Comment on above: Patient Position: Sitting; Cuff Location : Left Arm; Cuff Size: Standard 08-14-2015 16:12-0400 Body weight 74.84 kg Erika Joanie [employer] Work Phone: [employer].; [employer]. 08-14-2015 16:12-0400 Diastolic blood pressure 72 mm[Hg] Erika Joanie [employer] Work Phone: [employer].; [employer]. Comment on above: Patient Position: Sitting; Cuff Location : Left Arm; Cuff Size: Standard 08-14-2015 16:12-0400 Heart rate 83 /min Erika Joanie [employer] Work Phone: [employer].; [employer]. Comment on above: Pattern: Regular 08-14-2015 16:12-0400 Systolic blood pressure 127 mm[Hg] Erika Joanie [employer] Work Phone: [employer].; [employer]. Comment on above: Patient Position: Sitting; Cuff Location : Left Arm; Cuff Size: Standard 07-26-2015 16:16-0500 Body weight 75.3 kg Erika Joanie [employer] Work Phone: [employer].; [employer] 07-26-2015 16:16-0500 Diastolic blood pressure 72 mm[Hg] Erika Joanie [employer] Work Phone: [employer].; [employer]. Comment on above: Patient Position: Sitting; Cuff Location : Left Arm; Cuff Size: Standard 07-26-2015 16:16-0500 Heart rate 80 /min Erika Joanie [employer] Work Phone: [employer].; [employer]. Comment on above: Pattern: Regular 07-26-2015 16:16-0500 Systolic blood pressure 126 mm[Hg] Erika Joanie [employer] Work Phone: [employer].; [employer]. Comment on above: Patient Position: Sitting; Cuff Location : Left Arm; Cuff Size: Standard 07-03-2015 16:42-0500 Body weight 73.03 kg Erika Joanie [employer] Work Phone: [employer].; [employer] 07-03-2015 16:42-0500 Diastolic blood pressure 67 mm[Hg] Erika Joanie [employer] Work Phone: [employer].; [employer]. Comment on above: Patient Position: Sitting; Cuff Location : Left Arm; Cuff Size: Standard 07-03-2015 16:42-0500 Heart rate 87 /min Erika Wigginsy [employer] Work Phone: [employer].; [employer]. Comment on above: Pattern: Regular 07-03-2015 16:42-0500 Systolic blood pressure 121 mm[Hg] Erika Wigginsy [employer] Work Phone: [employer].; [employer]. Comment on above: Patient Position: Sitting; Cuff Location : Left Arm; Cuff Size: Standard 06-05-2015 16:37-0500 Body weight 72.58 kg Erika Wigginsy [employer] Work Phone: [employer].; [employer]. 06-05-2015 16:37-0500 Diastolic blood pressure 73 mm[Hg] Erika Wigginsy [employer] Work Phone: [employer].; [employer]. Comment on above: Patient Position: Sitting; Cuff Location : Left Arm; Cuff Size: Standard 06-05-2015 16:37-0500 Heart rate 88 /min Erika Wigginsy [employer] Work Phone: [employer].; [employer]. Comment on above: Pattern: Regular 06-05-2015 16:37-0500 Systolic blood pressure 119 mm[Hg] Erika Wigginsy [employer] Work Phone: [employer].; [employer]. Comment on above: Patient Position: Sitting; Cuff Location : Left Arm; Cuff Size: Standard 05-08-2015 16:03-0500 Body weight 71.67 kg Erika Wigginsy [employer] Work Phone: [employer].; [employer]. 05-08-2015 16:03-0500 Diastolic blood pressure 69 mm[Hg] Erika Joanie [employer] Work Phone: [employer].; [employer]. Comment on above: Patient Position: Sitting; Cuff Location : Left Arm; Cuff Size: Standard 05-08-2015 16:03-0500 Heart rate 77 /min Erika Joanie [employer] Work Phone: [employer].; [employer]. Comment on above: Pattern: Regular 05-08-2015 16:03-0500 Systolic blood pressure 120 mm[Hg] Erika Joanie [employer] Work Phone: [employer].; [employer]. Comment on above: Patient Position: Sitting; Cuff Location : Left Arm; Cuff Size: Standard 04-12-2015 16:23-0500 Body weight 69.4 kg Erika Joanie [employer] Work Phone: [employer].; [employer]. 04-12-2015 16:23-0500 Diastolic blood pressure 62 mm[Hg] Erika Joanie [employer] Work Phone: [employer].; [employer]. Comment on above: Patient Position: Sitting; Cuff Location : Left Arm; Cuff Size: Standard 04-12-2015 16:23-0500 Heart rate 76 /min Erika Joanie [employer] Work Phone: [employer].; [employer]. Comment on above: Pattern: Regular 04-12-2015 16:23-0500 Systolic blood pressure 118 mm[Hg] Erika Joanie [employer] Work Phone: [employer].; [employer]. Comment on above: Patient Position: Sitting; Cuff Location : Left Arm; Cuff Size: Standard 03-15-2015 16:12-0400 Body weight 68.95 kg Erika Joanie [employer] Work Phone: [employer].; [employer]. 03-15-2015 16:12-0400 Diastolic blood pressure 67 mm[Hg] Erika Joanie [employer] Work Phone: [employer].; [employer]. Comment on above: Patient Position: Sitting; Cuff Location : Left Arm; Cuff Size: Standard 03-15-2015 16:12-0400 Heart rate 92 /min Erika Joanie [employer] Work Phone: [employer].; [employer]. Comment on above: Pattern: Regular 03-15-2015 16:12-0400 Systolic blood pressure 126 mm[Hg] Erika Joanie [employer] Work Phone: [employer].; [employer]. Comment on above: Patient Position: Sitting; Cuff Location : Left Arm; Cuff Size: Standard 02-15-2015 15:21-0400 Body height 165.1 cm Erika Joanie [employer] Work Phone: [employer].; [employer]. 02-15-2015 15:21-0400 Body mass index (BMI) [Ratio] 24.3 kg/m2 Erika Joanie [employer] Work Phone: [employer].; [employer]. 02-15-2015 15:21-0400 Body surface area Derived from formula 1.73 m2 Erika Joanie [employer] Work Phone: [employer].; [employer]. 02-15-2015 15:21-0400 Body weight 66.23 kg Erika Joanie [employer] Work Phone: [employer].; [employer]. 02-15-2015 15:21-0400 Diastolic blood pressure 84 mm[Hg] Erika Joanie [employer] Work Phone: [employer].; [employer]. Comment on above: Patient Position: Sitting; Cuff Location : Left Arm; Cuff Size: Standard 02-15-2015 15:21-0400 Heart rate 95 /min Erika Joanie [employer] Work Phone: [employer].; [employer]. Comment on above: Pattern: Regular 02-15-2015 15:21-0400 Systolic blood pressure 129 mm[Hg] Erika Joanie [employer] Work Phone: [employer]; [employer]. Comment on above: Patient Position: Sitting; Cuff Location : Left Arm; Cuff Size: Standard 11-21-2014 08:45-0400 Body height 165.1 cm Jim Thornton MD Work Phone: [employer]; [employer]. 11-21-2014 08:45-0400 Body mass index (BMI) [Ratio] 23.96 kg/m2 Jim Thornton MD Work Phone: [employer]; [employer]. 11-21-2014 08:45-0400 Body surface area Derived from formula 1.72 m2 Jim Thornton MD Work Phone: [employer]; [employer]. 11-21-2014 08:45-0400 Body temperature 98.7 [degF] Jim Thornton MD Work Phone: [employer]; [employer]. Comment on above: Method: Tympanic 11-21-2014 08:45-0400 Body weight 65.32 kg Jim Thornton MD Work Phone: [employer]; [employer]. 11-21-2014 08:45-0400 Diastolic blood pressure 62 mm[Hg] Jim Thornton MD Work Phone: [employer]; [employer]. Comment on above: Patient Position: Sitting; Cuff Location : Left Arm; Cuff Size: Standard 11-21-2014 08:45-0400 Heart rate 61 /min Jim Thornton MD Work Phone: [employer]; [employer]. Comment on above: Pattern: Regular 11-21-2014 08:45-0400 Systolic blood pressure 112 mm[Hg] Jim Thornton MD Work Phone: [employer]; [employer]. Comment on above: Patient Position: Sitting; Cuff Location : Left Arm; Cuff Size: Standard 09-01-2014 11:40-0400 Body temperature 98.1 [degF] Jim Thornton MD Work Phone: [employer].; [employer]. Comment on above: Method: Tympanic 09-01-2014 11:40-0400 Body weight 68.49 kg Jim Thornton MD Work Phone: [employer].; [employer]. 09-01-2014 11:40-0400 Diastolic blood pressure 71 mm[Hg] Jim Thornton MD Work Phone: [employer].; [employer]. Comment on above: Patient Position: Sitting; Cuff Location : Right Arm; Cuff Size: Standard 09-01-2014 11:40-0400 Heart rate 72 /min Jim Thornton MD Work Phone: [employer] [facility].; [employer]. Comment on above: Pattern: Regular 09-01-2014 11:40-0400 Systolic blood pressure 111 mm[Hg] Jim Thornton MD Work Phone: [employer].; [employer]. Comment on above: Patient Position: Sitting; Cuff Location : Right Arm; Cuff Size: Standard 07-08-2014 10:53-0500 Body height 165.1 cm [facility] Work Phone: [employer] [facility].; [employer]. 07-08-2014 10:53-0500 Body mass index (BMI) [Ratio] 24.13 kg/m2 [facility] Work Phone: [employer].; [employer] 07-08-2014 10:53-0500 Body surface area Derived from formula 1.73 m2 [facility] Work Phone: [employer].; [employer]. 07-08-2014 10:53-0500 Body temperature 99.2 [degF] [facility] Work Phone: [place] [employer].; [employer]. Comment on above: Method: Tympanic 07-08-2014 10:53-0500 Body weight 65.77 kg Erika Nair LPN Work Phone: [place] [employer].; [employer]. 07-08-2014 10:53-0500 Diastolic blood pressure 56 mm[Hg] Erika Wigginsy [employer] Work Phone: [place] [employer].; [employer]. Comment on above: Patient Position: Sitting; Cuff Location : Left Arm; Cuff Size: Standard 07-08-2014 10:53-0500 Heart rate 65 /min Erika Nair LPN Work Phone: [employer]; [employer]. Comment on above: Pattern: Regular 07-08-2014 10:53-0500 Systolic blood pressure 99 mm[Hg] Erika Wigginsy [employer] Work Phone: [place] [employer].; [employer]. Comment on above: Patient Position: Sitting; Cuff Location : Left Arm; Cuff Size: Standard 07-05-2014 09:08-0500 Body temperature 99.8 [degF] Erika Nair LPN Work Phone: [employer].; [employer]. Comment on above: Method: Tympanic 06-29-2014 10:44-0500 Body height 165.1 cm Erika Nair LPN Work Phone: [place] [employer].; [employer]. 06-29-2014 10:44-0500 Body mass index (BMI) [Ratio] 24.13 kg/m2 Erika Joanie [employer] Work Phone: [employer].; [employer] 06-29-2014 10:44-0500 Body surface area Derived from formula 1.73 m2 Erika Joanie [employer] Work Phone: [employer]; [employer]. 06-29-2014 10:44-0500 Body weight 65.77 kg Erika Joanie [employer] Work Phone: [employer].; [employer]. 06-29-2014 10:44-0500 Diastolic blood pressure 61 mm[Hg] Erika Joanie [employer] Work Phone: [employer].; [employer]. Comment on above: Patient Position: Sitting; Cuff Location : Left Arm; Cuff Size: Standard 06-29-2014 10:44-0500 Heart rate 72 /min Erika Joanie [employer] Work Phone: [employer].; [employer]. Comment on above: Pattern: Regular 06-29-2014 10:44-0500 Systolic blood pressure 135 mm[Hg] Erika Joanie [employer] Work Phone: [employer].; [employer]. Comment on above: Patient Position: Sitting; Cuff Location : Left Arm; Cuff Size: Standard 06-27-2014 09:14-0500 Body weight 65.77 kg Erikaquinn Wigginsy [employer]ED [employer]ADER Work Phone: [employer].; [employer]. 06-27-2014 09:14-0500 Diastolic blood pressure 68 mm[Hg] Erika Joanie [employer] Work Phone: [employer].; [employer]. Comment on above: Patient Position: Sitting; Cuff Location : Left Arm; Cuff Size: Standard 06-27-2014 09:14-0500 Heart rate 75 /min Erika Joanie [employer] Work Phone: [employer].; [employer]. Comment on above: Pattern: Regular 06-27-2014 09:14-0500 Systolic blood pressure 118 mm[Hg] Erika Joanie [employer] Work Phone: [employer].; [employer]. Comment on above: Patient Position: Sitting; Cuff Location : Left Arm; Cuff Size: Standard 05-16-2014 14:02-0500 Body height 165.1 cm Erika Joanie [employer] Work Phone: [employer].; [employer]. 05-16-2014 14:02-0500 Body mass index (BMI) [Ratio] 23.8 kg/m2 Erika Nair LPN Work Phone: [employer].; [employer]. 05-16-2014 14:02-0500 Body surface area Derived from formula 1.72 m2 Erika Nair LPN Work Phone: [employer].; [employer]. 05-16-2014 14:02-0500 Body weight 64.86 kg Erika Nair LPN Work Phone: [employer].; [employer]. 05-16-2014 14:02-0500 Diastolic blood pressure 72 mm[Hg] Erika Nair LPN Work Phone: [employer]; [employer]. Comment on above: Patient Position: Sitting; Cuff Location : Left Arm; Cuff Size: Standard 05-16-2014 14:02-0500 Heart rate 70 /min Erika Nair LPN Work Phone: [employer]; [employer]. Comment on above: Pattern: Regular 05-16-2014 14:02-0500 Systolic blood pressure 126 mm[Hg] Erika Nair LPN Work Phone: [employer]; [employer]. Comment on above: Patient Position: Sitting; Cuff Location : Left Arm; Cuff Size: Standard 04-27-2013 16:00-0500 Body height 167.64 cm Georgina Sandy RN Work Phone: [employer]; [employer]. 04-27-2013 16:00-0500 Body mass index (BMI) [Ratio] 23.89 kg/m2 Georgina Sandy RN Work Phone: [employer]. 04-27-2013 16:00-0500 Body surface area Derived from formula 1.76 m2 Georgina Sandy RN [facility] [employer] 04-27-2013 16:00-0500 Body weight 67.13 kg Georgina Sandy RN [facility] [employer]. 04-27-2013 16:00-0500 Diastolic blood pressure 77 mm[Hg] Georgina Sandy RN Work [facility] [employer]. Comment on above: Patient Position: Sitting; Cuff Location : Left Arm; Cuff Size: Standard 04-27-2013 16:00-0500 Heart rate 77 /min Georgina Sandy RN Work [facility] [employer]. Comment on above: Pattern: Regular 04-27-2013 16:00-0500 Systolic blood pressure 123 mm[Hg] Georgina Sandy RN [facility] [employer]. Comment on above: Patient Position: Sitting; Cuff Location : Left Arm; Cuff Size: Standard 12-18-2011 13:36-0400 Body height 167.64 cm Jim Thornton MD Work [facility] [employer]. 12-18-2011 13:36-0400 Body mass index (BMI) [Ratio] 22.76 kg/m2 Jim Thornton MD [facility] [employer]. 12-18-2011 13:36-0400 Body surface area Derived from formula 1.72 m2 Jim Thornton MD Work Phone: [employer] 12-18-2011 13:36-0400 Body weight 63.96 kg Jim Thornton MD Work Phone: [employer]. 12-18-2011 13:36-0400 Diastolic blood pressure 67 mm[Hg] Jim Thornton MD Work Phone: [employer]. Comment on above: Patient Position: Sitting; Cuff Location : Left Arm; Cuff Size: Standard 12-18-2011 13:36-0400 Heart rate 60 /min Jim Thornton MD Work Phone: [employer]. Comment on above: Pattern: Regular 12-18-2011 13:36-0400 Systolic blood pressure 118 mm[Hg] Jim Thornton MD Work Phone: [employer]. Comment on above: Patient Position: Sitting; Cuff Location : Left Arm; Cuff Size: Standard 11-15-2011 14:05-0400 Body height 167.64 cm Georgina Sandy RN Work Phone: [employer]. 11-15-2011 14:05-0400 Body mass index (BMI) [Ratio] 23.4 kg/m2 Georgina Sandy RN Work Phone: [employer]. 11-15-2011 14:05-0400 Body surface area Derived from formula 1.74 m2 Georgina Sandy RN Work Phone: [employer]. 11-15-2011 14:05-0400 Body weight 65.77 kg Georgina Sandy RN Work Phone: [employer]. 11-15-2011 14:05-0400 Diastolic blood pressure 71 mm[Hg] Georgina Sandy RN Work Phone: [employer]. Comment on above: Patient Position: Sitting; Cuff Location : Left Arm; Cuff Size: Standard 11-15-2011 14:05-0400 Heart rate 59 /min Georgina Sandy RN Work Phone: [employer]. Comment on above: Pattern: Regular 11-15-2011 14:05-0400 Systolic blood pressure 121 mm[Hg] Georgina Sandy RN Work Phone: [employer]. Comment on above: Patient Position: Sitting; Cuff Location : Left Arm; Cuff Size: Standard 08-15-2011 09:42-0400 Body height 167.64 cm Jim Thornton MD Work Phone: [employer]. 08-15-2011 09:42-0400 Body mass index (BMI) [Ratio] 23.44 kg/m2 Jim Thornton MD Work Phone: [employer] 08-15-2011 09:42-0400 Body surface area Derived from formula 1.75 m2 Jim Thornton MD Work Phone: [employer]. 08-15-2011 09:42-0400 Body weight 65.86 kg Jim Thornton MD Work Phone: [employer]. 08-15-2011 09:42-0400 Diastolic blood pressure 77 mm[Hg] Jim Thornton MD Work Phone: [employer]. Comment on above: Patient Position: Sitting; Cuff Location : Left Arm; Cuff Size: Standard 08-15-2011 09:42-0400 Heart rate 69 /min Jim Thornton MD Work Phone: [employer]. Comment on above: Pattern: Regular 08-15-2011 09:42-0400 Systolic blood pressure 130 mm[Hg] Jim Thornton MD Work Phone: [employer]. Comment on above: Patient Position: Sitting; Cuff Location : Left Arm; Cuff Size: Standard 01-09-2011 15:14-0400 Body height 167.64 cm Jim Thornton MD Work Phone: [employer]; [employer]. 01-09-2011 15:14-0400 Body mass index (BMI) [Ratio] 21.4 kg/m2 Jim Thornton MD Work Phone: [employer]; [employer]. 01-09-2011 15:14-0400 Body surface area Derived from formula 1.68 m2 Jim Thornton MD Work Phone: [employer]; [employer]. 01-09-2011 15:14-0400 Body temperature 98.7 [degF] Jim Thornton MD Work Phone: [employer]; [employer]. Comment on above: Method: Tympanic 01-09-2011 15:14-0400 Body weight 60.15 kg Jim Thornton MD Work Phone: [employer]; [employer]. 01-09-2011 15:14-0400 Diastolic blood pressure 66 mm[Hg] Jim Thornton MD Work Phone: [employer]; [employer]. Comment on above: Patient Position: Sitting; Cuff Location : Left Arm; Cuff Size: Standard 01-09-2011 15:14-0400 Heart rate 91 /min Jim Thornton MD Work Phone: [employer]; [employer]. Comment on above: Pattern: Regular 01-09-2011 15:14-0400 Systolic blood pressure 125 mm[Hg] Jim Thornton MD Work Phone: [employer]; [employer]. Comment on above: Patient Position: Sitting; Cuff Location : Left Arm; Cuff Size: Standard 01-03-2011 16:50-0400 Body height 167.64 cm Georgina Sandy RN Work Phone: [employer]; [employer]. 01-03-2011 16:50-0400 Body mass index (BMI) [Ratio] 21.14 kg/m2 Georgina Sandy RN Work Phone: [employer]; [employer]. 01-03-2011 16:50-0400 Body surface area Derived from formula 1.67 m2 Georgina Sandy RN Work Phone: [employer] 01-03-2011 16:50-0400 Body weight 59.42 kg Georgina Sandy RN Work Phone: [employer] 01-03-2011 16:50-0400 Diastolic blood pressure 72 mm[Hg] Georgina Sandy RN Work Phone: [employer]. Comment on above: Patient Position: Sitting; Cuff Location : Left Arm; Cuff Size: Standard 01-03-2011 16:50-0400 Heart rate 63 /min Georgina Sandy RN Work Phone: [employer]. Comment on above: Pattern: Regular 01-03-2011 16:50-0400 Systolic blood pressure 110 mm[Hg] Georgina Sandy RN Work Phone: [employer]. Comment on above: Patient Position: Sitting; Cuff Location : Left Arm; Cuff Size: Standard 12-21-2010 14:55-0400 Body height 167.64 cm Georgina Sandy RN Work Phone: [employer]. 12-21-2010 14:55-0400 Body mass index (BMI) [Ratio] 21.14 kg/m2 Georgina Sandy RN Work Phone: [employer]. 12-21-2010 14:55-0400 Body surface area Derived from formula 1.67 m2 Georgina Sandy RN Work Phone: [employer]. 12-21-2010 14:55-0400 Body weight 59.42 kg Georgina Sandy RN Work Phone: [employer]. 12-21-2010 14:55-0400 Diastolic blood pressure 62 mm[Hg] Georgina Sandy RN Work Phone: [employer]. Comment on above: Patient Position: Sitting; Cuff Location : Left Arm; Cuff Size: Standard 12-21-2010 14:55-0400 Heart rate 65 /min Georgina Sandy RN Work Phone: [employer]. Comment on above: Pattern: Regular 12-21-2010 14:55-0400 Systolic blood pressure 111 mm[Hg] Georgina Sandy RN Work Phone: [employer]. Comment on above: Patient Position: Sitting; Cuff Location : Left Arm; Cuff Size: Standard 12-11-2010 08:16-0400 Body height 167.64 cm KetsuN Work Phone: [employer]. 12-11-2010 08:16-0400 Body mass index (BMI) [Ratio] 21.31 kg/m2 [employer] Work Phone: [employer]. 12-11-2010 08:16-0400 Body surface area Derived from formula 1.68 m2 [employer] Work Phone: [employer]. 12-11-2010 08:16-0400 Body weight 59.88 kg Formarumy [employer] Work Phone: [employer]. 12-11-2010 08:16-0400 Diastolic blood pressure 73 mm[Hg] Erika Joanie [employer] Work Phone: [employer]. Comment on above: Patient Position: Sitting; Cuff Location : Left Arm; Cuff Size: Standard 12-11-2010 08:16-0400 Heart rate 64 /min Formarumy [employer] Work Phone: [employer]. Comment on above: Pattern: Regular 12-11-2010 08:16-0400 Systolic blood pressure 132 mm[Hg] Erika Nair LPN Work Phone: [employer]. Comment on above: Patient Position: Sitting; Cuff Location : Left Arm; Cuff Size: Standard 11-01-2010 09:21-0400 Body height 167.64 cm Georgina Sandy RN Work Phone: [employer]. 11-01-2010 09:21-0400 Body mass index (BMI) [Ratio] 21.31 kg/m2 Georgina Sandy RN Work Phone: [employer]. 11-01-2010 09:21-0400 Body surface area Derived from formula 1.68 m2 Georgina Sandy RN Work Phone: [employer]. 11-01-2010 09:21-0400 Body weight 59.88 kg Georgina Sandy RN Work Phone: [employer].; [employer] 11-01-2010 09:21-0400 Diastolic blood pressure 69 mm[Hg] Georgina Sandy RN Work Phone: [employer]. Comment on above: Patient Position: Sitting; Cuff Location : Left Arm; Cuff Size: Standard 11-01-2010 09:21-0400 Heart rate 73 /min Georgina Sandy RN Work Phone: [employer]. Comment on above: Pattern: Regular 11-01-2010 09:21-0400 Systolic blood pressure 106 mm[Hg] Georgina Sandy RN Work Phone: [employer]. Comment on above: Patient Position: Sitting; Cuff Location : Left Arm; Cuff Size: Standard Encounters Encounter Date Encounter Type Care Provider Facility Start: 12-30-2024 End: 12-30-[address] Jim Thornton MD Work Phone: -[facility] Start: 12-30-2024 End: 12-30-[address] Randy Kearns MD -[facility] Work Phone: Start: 12-21-2024 End: 12-21-[address] Randy Kearns MD -[facility] Work Phone: Start: 12-21-2024 End: 12-21-[address] Jim Thornton MD Work Phone: -[facility] Start: 12-14-2024 End: 12-14-[address] London Ingram MD -[facility] Start: 12-14-2024 End: 12-14-[address] Jim Thornton MD Work Phone: -[facility] Start: 12-07-2024 End: 12-07-[address] Randy Kearns MD -[facility] Work Phone: Start: 12-07-2024 End: 12-07-[address] Jim Thornton MD Work Phone: -[facility] Start: 12-06-2024 End: 12-06-2024 Telephone follow-up [facility] Start: 12-03-2024 End: 12-03-2024 Emergency department patient visit Dr. Jim Thornton MD Work Phone: -Emergency Department Work Phone: Start: 12-03-2024 End: 12-03-2024 Periodic preventive med est patient 18-39 yrs Jim Thornton MD [facility] Start: 12-03-2024 End: 12-03-2024 Physical examination Gabriella Duvall [facility] Start: 11-29-2024 End: 11-29-2024 Office outpatient visit 15 minutes Jim Thornton MD Work Phone: [employer] Start: 11-22-2024 End: 11-22-2024 Orders Jim Thornton MD Work Phone: [employer] Start: 03-05-2024 End: 03-05-2024 Patient encounter status Jim Thornton MD Work Phone: [employer]; [employer]. Start: 03-05-2024 End: 03-05-2024 Periodic preventive med est patient 18-39 yrs Jim Thornton MD Work Phone: [employer]. Start: 02-20-2024 End: 02-20-2024 Orders Jim Thornton MD Work Phone: [employer] Start: 01-28-2024 End: 01-28-2024 Orders Jim Thornton MD Work Phone: [employer] Start: 07-06-2023 Telephone encounter Titi puente APRN.SOUND ART INSTRUCTOR Work Phone: [facility] Comment on above: Results Start: 07-05-2023 End: 07-05-2023 ambulatory Facility:[facility] Start: 07-05-2023 End: 07-05-2023 Patient encounter procedure Delmar Leggett APRN.SOUND ART INSTRUCTOR Work Phone: [facility] Comment on above: Sore throat (Primary Dx); URI, acute Start: 01-29-2023 End: 01-29-2023 Office outpatient visit 15 minutes Jim Thornton MD Work Phone: [employer] Start: 11-11-2022 End: 11-11-2022 Office outpatient visit 15 minutes Jim Thornton MD Work Phone: [employer] Start: 10-22-2022 End: 10-22-2022 Office outpatient visit 10 minutes Jim Thornton MD Work Phone: [employer] Start: 06-20-2021 End: 06-20-2021 Orders Jim Thornton MD Work Phone: [employer] Start: 06-20-2021 End: 06-20-2021 [facility] Start: 06-15-2021 End: 06-15-2021 Orders Jim Thornton MD Work Phone: [employer] Start: 06-15-2021 End: 06-15-2021 [facility] Start: 06-14-2021 End: 06-14-2021 Orders Jim Thornton MD Work Phone: [employer] Start: 06-13-2021 End: 06-13-2021 Office outpatient visit 15 minutes Jim Thornton MD Work Phone: [employer] Start: 02-07-2020 End: 02-07-2020 Nursing evaluation of patient and report Jim Thornton MD Work Phone: [employer] Start: 02-01-2020 End: 02-01-2020 Telephone follow-up Jim Thornton MD Work Phone: [employer] Start: 06-28-2019 End: 06-28-2019 Office outpatient visit 15 minutes Jim Thornton MD Work Phone: [employer] Start: 11-03-2017 End: 11-03-2017 Patient encounter procedure Jim Thornton MD Work Phone: [employer] Start: 08-26-2017 End: 08-26-2017 Office outpatient visit 15 minutes Jim Thornton MD Work Phone: [employer] Start: 08-28-2015 End: 08-28-2015 Patient encounter procedure Jim Thornton MD Work Phone: [employer] Start: 08-23-2015 End: 08-23-2015 Patient encounter procedure Jim Thornton MD Work Phone: [employer] Start: 08-14-2015 End: 08-14-2015 Patient encounter procedure Jim Thornton MD Work Phone: [employer] Start: 07-26-2015 End: 07-26-2015 Orders Jim Thornton MD Work Phone: [employer] Start: 07-24-2015 End: 07-24-2015 Historical Summary Jim Thornton MD Work Phone: [employer] Start: 07-03-2015 End: 07-03-2015 Patient encounter procedure Jim Thornton MD Work Phone: [employer] Start: 06-08-2015 End: 06-08-2015 Orders Jim Thornton MD Work Phone: [employer] Start: 06-05-2015 End: 06-06-2015 Patient encounter procedure Jim Thornton MD Work Phone: [employer] Start: 05-08-2015 End: 05-08-2015 Patient encounter procedure Jim Thornton MD Work Phone: [employer] Start: 04-12-2015 End: 04-12-2015 Patient encounter procedure Jim Thornton MD Work Phone: [employer] Start: 03-15-2015 End: 03-15-2015 Patient encounter procedure Jim Thornton MD Work Phone: [employer] Start: 02-15-2015 End: 02-16-2015 Patient encounter procedure Jim Thornton MD Work Phone: [employer] Start: 11-21-2014 End: 11-21-2014 Patient encounter procedure Jim Thornton MD Work Phone: [employer] Start: 09-01-2014 End: 09-01-2014 Patient encounter procedure Jim Thornton MD Work Phone: [employer] Start: 07-08-2014 End: 07-08-2014 Historical Summary Jim Thornton MD Work Phone: [employer] Start: 07-08-2014 End: 07-08-2014 Patient encounter procedure Jim Thornton MD Work Phone: [employer]. Start: 07-05-2014 End: 07-05-2014 Orders Jim Thornton MD Work Phone: [employer]. Start: 07-05-2014 End: 07-05-2014 Historical Summary Jim Thornton MD Work Phone: [employer] Start: 06-29-2014 End: 06-29-2014 Patient encounter procedure Jim Thornton MD Work Phone: [employer] Start: 06-28-2014 End: 06-28-2014 Historical Summary Jim Thornton MD Work Phone: [employer] Start: 06-27-2014 End: 06-27-2014 Patient encounter procedure Jim Thornton MD Work Phone: [employer] Start: 05-16-2014 End: 05-16-2014 Patient encounter procedure Jim Thornton MD Work Phone: [employer] Start: 08-22-2013 End: 08-22-2013 Medication Jim Thornton MD Work Phone: [employer] Start: 04-27-2013 End: 04-27-2013 Patient encounter procedure Jim Thornton MD Work Phone: [employer] Start: 04-27-2013 End: 04-27-2013 Routine gynecological examination Jim Thornton MD Work Phone: [employer]; [employer]. Start: 12-24-2011 End: 12-24-2011 Medication Jim Thonrton MD Work Phone: [employer] Start: 12-18-2011 End: 12-18-2011 Patient encounter procedure Jim Thornton MD Work Phone: [employer] Start: 11-15-2011 End: 11-15-2011 Patient encounter procedure Jim Thornton MD Work Phone: [employer] Start: 11-15-2011 End: 11-15-2011 Routine gynecological examination Jim Thornton MD Work Phone: [employer]; [employer]. Start: 11-14-2011 End: 11-14-2011 Historical Summary Jim Thornton MD Work Phone: [employer] Start: 08-15-2011 End: 08-15-2011 Patient encounter procedure Jim Thornton MD Work Phone: [employer] Start: 01-09-2011 End: 01-09-2011 Patient encounter procedure Jim Thornton MD Work Phone: [employer] Start: 01-03-2011 End: 01-03-2011 Patient encounter procedure Jim Thornton MD Work Phone: [employer] Start: 12-21-2010 End: 12-21-2010 Patient encounter procedure Jim Thornton MD Work Phone: [employer] Start: 12-11-2010 End: 12-11-2010 Patient encounter procedure Jim Thornton MD Work Phone: [employer] Start: 11-01-2010 End: 11-01-2010 Patient encounter procedure Jim Thornton MD Work Phone: [employer] Start: 11-01-2010 End: 11-01-2010 Routine gynecological examination Georgina Sandy RN Work Phone: [employer]; [employer]. Start: 03-09-2010 End: 03-13-2010 Orders Jim Thornton MD Work Phone: [employer] Follow-up encounter Nadia rosario PA-C Work Phone: [employer]; [employer]. Physical examination Nadia SMITH-C Work Phone: [facility].; [facility]. Routine gynecologica l examination Ragini Chauhan [employer] [facility].; [facility]. Procedures Date Procedure Procedure Detail Performing Clinician Start: 12-14-2024 Plain x-ray of hand Dr. Jim Thornton MD Work Phone: Start: 12-03-2024 Plain x-ray of hand Dr. Jim Thornton MD Work Phone: Start: 12-03-2024 End: 12-03-2024 Depression screening Nadiakaryn Koehler PA-C Work Phone: Start: 12-03-2024 End: 12-03-2024 Pos clin depres scrn f/u doc Nadia Bee Koehler PA-C Work Phone: Start: 12-03-2024 End: 12-03-2024 Scr dep neg, no plan reqd Nadia Bee Koehler PA-C Work Phone: Start: 11-29-2024 End: 11-29-2024 Dexamethasone sodium phos Nadia Bee Koehler PA-C Work Phone: Start: 11-22-2024 End: 11-22-2024 Lab findings surveillance Gabriella Canela Comment on above: 84 CMP Start: 11-22-2024 End: 11-22-2024 Lipid panel Gabriella Duvall MA Start: 03-05-2024 End: 03-05-2024 Depression screening Nadia Bee Koehler PA-C Work Phone: Start: 03-05-2024 End: 03-05-2024 Scr dep neg, no plan reqd Nadia Koehler PA-C Work Phone: Start: 02-24-2024 End: 02-24-2024 Microscopic examination of cervical Papanicolaou smear Gabriella Duvall MA Comment on above: Normal. Start: 02-20-2024 End: 02-20-2024 Lab findings surveillance Bebe barton MA Comment on above: 98 CMP Start: 02-20-2024 End: 02-20-2024 Lipid panel Bebe Manley MA Start: 07-05-2023 ALO A MOLECULAR (POC) Nicole Mendiola APRN.CNP Work Phone: Start: 11-11-2022 End: 11-12-2022 Dup-scan lxtr art/artl bpgs uni/lmtd study Nadia SMITH-C Work Phone: Start: 06-15-2021 End: 06-20-2021 Us soft tissue head & neck real time imge docm Barak SMITH-C Work Phone: Start: 06-14-2021 End: 06-15-2021 Chest x-ray Barak SMITH-C Work Phone: Start: 02-07-2020 End: 02-07-2020 Removal sutures under anesthesia same surgeon FLOAT NURSE Start: 08-28-2015 End: 08-28-2015 Ob care antepartum vag dlvr & Jim Thornton MD Work Phone: Start: 08-23-2015 End: 08-23-2015 Ob care antepartum vag dlvr & Jim Thornton MD Work Phone: Start: 08-14-2015 End: 08-14-2015 Ob care antepartum vag dlvr & Jim Thornton MD Work Phone: Start: 07-26-2015 End: 07-26-2015 Ob care antepartum vag dlvr & Jim Thornton MD Work Phone: Start: 07-24-2015 End: 07-24-2015 Ob care antepartum vag dlvr & Jim Thornton MD Work Phone: Start: 07-03-2015 End: 07-03-2015 Ob care antepartum vag dlvr & Jim Thornton MD Work Phone: Start: 06-05-2015 End: 06-05-2015 Ob care antepartum vag dlvr & Jim Thornton MD Work Phone: Start: 05-08-2015 End: 05-08-2015 Ob care antepartum vag dlvr & Jim Thornton MD Work Phone: Start: 04-12-2015 End: 04-12-2015 Ob care antepartum vag dlvr & Jim Thornton MD Work Phone: Start: 03-15-2015 End: 03-15-2015 Ob care antepartum vag dlvr & Jim Thornton MD Work Phone: Start: 02-15-2015 End: 02-16-2015 Ob care antepartum vag dlvr & Jim Thornton MD Work Phone: Start: 02-15-2015 End: 02-16-2015 Us uterus 14 wk transabdl 05/26 gestat Jim Thornton MD Work Phone: Start: 07-08-2014 End: 07-08-2014 Ob care antepartum vag dlvr & Jim Thornton MD Work Phone: Start: 07-05-2014 End: 07-05-2014 No Known Past Surgical History Erika Nair JAGDEEP Work Phone: Start: 06-29-2014 End: 06-29-2014 Ob care antepartum vag dlvr & Jim Thornton MD Work Phone: Start: 06-29-2014 End: 07-28-2014 Us preg uterus after 1st trimest 05/26 gestation Jim Thornton MD Work Phone: Start: 06-28-2014 End: 06-28-2014 Ob care antepartum vag dlvr & Jim Thornton MD Work Phone: Start: 06-27-2014 End: 06-27-2014 Ob care antepartum vag dlvr & Jim Thornton MD Work Phone: Start: 05-26-2014 End: 05-26-2014 Dilation and curettage of uterus Gabriella Duvall MA Start: 05-16-2014 End: 05-16-2014 Ob care antepartum vag dlvr & Jim Thornton MD Work Phone: Start: 04-27-2013 End: 04-27-2013 Removal intrauterine device iud Amy Brody MD Work Phone: Start: 10-25-2011 End: 10-25-2011 Microscopic examination of cervical Papanicolaou smear Gabriella Duvall MA Comment on above: Normal. Start: 08-15-2011 End: 08-15-2011 Dexamethasone sodium phos Ericka chavez PA-C Work Phone: H/O: surgery S/P D&C (status post dilation and curettage) Jim Thornton MD Work Phone: Plan of Treatment Date Care Activity Detail Author Start: 01-28-2030 Urine microalbumin profile DTaP,Tdap,Td Vaccine (2 - Td or Tdap) [facility] Start: 12-14-2024 Plain x-ray of hand Hand Min 3 Views [facility] Start: 12-14-2024 XR Hand GE 3 Views [facility] Start: 12-03-2024 [facility] Start: 12-03-2024 Smpl repair scalp/neck/ax/genit/trun k 2.6-7.5cm RPR S/N/AX/GEN/TRNK2.6-7.5C M [facility] Start: 12-03-2024 Patient encounter procedure Medical; PHYSICAL - AWV [employer]. Start: 03-Dec-2024 10:00-04:00 NEAL Koehler Appointment Request [employer]. Start: 11-22-2024 Comprehensive metabo lic panel CMP w/ GFR* ([id number]) Start: 22-Nov-2024 07:59-04:00 Request [employer].; [employer]. Start: 11-22-2024 Lipid panel LIPID PANEL ([id number]) Start: 22-Nov-2024 07:59-04:00 Request [employer]. Start: 03-05-2024 Patient encounter procedure Medical; PHYSICAL - AWV, pap [employer]. Start: 05-Mar-2024 09:00-04:00 NEAL Koehler Appointment Request [facility] Start: 03-05-2024 Cytp c/v auto thin l yr prepj scr mnl rescr phys ThinPrep Pap Test AND HPV mRNA ([id number]) ([id number]) Start: 05-Mar-2024 07:51-04:00 Request [employer]; [employer]. Start: 02-20-2024 Comprehensive metabo lic panel CMP w/ GFR* ([id number]) Start: 20-Feb-2024 Request [employer]; [employer]. Start: 02-20-2024 Lipid panel LIPID PANEL ([id number]) Start: 20-Feb-2024 Request [employer]; [employer]. Start: 02-20-2024 Nursing evaluation o f patient and report Medical; Nurse visit - fasting labs [facility]JB [employer] Start: 20-Feb-2024 09:00-04:00 NURSE, FLOAT Appointment Request [facility] Start: 07-05-2023 End: 07-19-2023 COVID & INFLUENZA A/B & RSV NAAT, ROUTINE COVID & INFLUENZA A/B & RSV NAAT, ROUTINE Microbiology Routine URI, acute Expected: 07/05/2023, Expires: 07/19/2023 [facility] Work Phone: Comment on above: Expected: 07/05/2023 , Expires: 07/19/2023 Start: 05-26-2023 Depression Assessment Depression Ass essment [facility] Start: 01-24-2023 Influenza vaccination Influenza Vacc ine (#1) [facility] Start: 2018 Screening for malign ant neoplasm of cervix HPV Testing [facility] Start: 12-21-2010 Provider Instruction s for Treatment Discharge instructions Indication: Asthma, mild intermittent, well-controlled Start: 21-Dec-2010 Instruction Type: Provider Instructions for Treatment [employer]; [employer]. Start: 2009 Screening for malign ant neoplasm of cervix Pap Testing [facility] Start: 2006 Hepatitis C screening Hepatitis C Oh waldo [facility] Start: 2006 HIV screening HIV Screening [facility] Start: 1988 Covid-19 Vaccine (#1) Covid-19 Vacci ne (#1) [facility] Start: 1988 Hepatitis B Vaccine (1 of 3 - 3-dose series) Hepatitis B Vaccine (1 of 3 - 3-dose series) [facility] Patient Education ED Laceration Extremity [facility] Work Phone: dexAMETHasone so d phos (bulk) 100 % powder Ordered: 15-Aug-[address] [facility] dexAMETHasone so d phos (bulk) 100 % powder Ordered: 29-Nov-[address] [facility] Immunizations Immunization Date Immunization Notes Care Provider Fa [facility] 01-29-2020 tetanus toxoid, redu chaya diphtheria toxoid, and acellular pertussis vaccine, adsorbed Dr. Jim Thornton MD Work Phone: [facility] 02-19-2018 influenza, injectabl e, quadrivalent, preservative free Dr. Jim Thornton MD Work Phone: [facility] 02-19-2018 influenza virus vaccine, unspecified formulation Delmar Leggett APRN.CNP Work Phone: [facility] 12-11-2010 pneumococcal polysaccharide vaccine, 23 valent Jim Thornton MD Work Phone[facility] Comment on above: Site: Deltoid (Left) VIS Given: * Pneumococcal Polysaccharide (PPSV23) (02/28/09) 03-09-2010 IMMUNIZATION ADMIN ([id number]) Jim Thornton MD Work Phone[facility]; [employer] [facility] Work Phone: 07-04-2009 tetanus toxoid, redu chaya diphtheria toxoid, and acellular pertussis vaccine, adsorbed Jim Thornton MD Work Phone[facility]; [facility] 01-12-2001 hepatitis B vaccine, pediatric or pediatric/adolescent dosage Jim Thornton MD Work Phone: [facility] 11-18-2000 measles, mumps and rubella virus vaccine Jim Thornton MD [facility] Phone[facility] 01-02-1994 diphtheria, tetanus toxoids and pertussis vaccine Jim Thornton MD Work Phone: [facility] 01-02-1994 trivalent poliovirus vaccine, live, oral Jim Thornton MD Work Phone: [facility].; [facility] 10-04-1993 diphtheria, tetanus toxoids and pertussis vaccine Jim Thornton MD Work Phone[facility] 10-04-1993 trivalent poliovirus vaccine, live, oral Jim Thornton MD Work Phone: [facility] 02-16-1993 haemophilus influenz ae type b vaccine, PRP-T conjugate Jim Thornton MD Work Phone: [facility].; [facility] 02-11-1990 measles, mumps and rubella virus vaccine Jim Thornton MD Work Phone: [facility] 1990 diphtheria, tetanus toxoids and pertussis vaccine Jim Thornton MD Work Phone: [facility] 1990 trivalent poliovirus vaccine, live, oral Jim Thornton MD Work Phone: [facility] 1990 diphtheria, tetanus toxoids and pertussis vaccine Jim Thornton MD Work Phone: [facility] 1990 trivalent poliovirus vaccine, live, oral Jim Thornton MD Work Phone: [facility] 1990 diphtheria, tetanus toxoids and pertussis vaccine Jim Thornton MD Work Phone: [facility] 1990 trivalent poliovirus vaccine, live, oral Jim Thornton MD Work Phone: [facility].; [place] [employer] [employer] [facility] Payers Date Payer Category Payer Self-pay 2023 Unknown [id number] 2015 Unknown [id number] 1988 Unknown [id number] 1988 Unknown [id number] 2.16.84 [id number] Unknown [id number] Unknown [id number] 2.16.8 [id number] Unknown [id number] 2.16.8 [id number] Unknown [id number] 2.16.8 [id number] Unknown [id number] 2.16.8 [id number] Unknown [id number] 2.16.8 [id number] Social History Date Type Detail Facility Start: 07-05-2023 End: 12-07-2024 Tobacco smoking status NHIS Never smoked tobacco [facility] History of tobacco use Passive smoker [facility] Start: 07-05-2023 Tobacco use and exposure Smokeless tobacco non-user [facility] Start: 07-05-2023 [facility] Start: 07-05-2023 Tobacco use panel [facility] Start: 1990 Sex Assigned At Not on file [facility] Alcohol Use: Alcohol Use: ; O ccasional alcohol use. [facility]; [facility] Primary Contro l Method: Primary Control Method: ; Intrauterine device. [facility]; [facility] Tobacco Use: Tobacco Use: ; N ever smoker. [facility]; [facility] Start: 1990 Female [facility] Occasional alcohol use [facility] Work Phone: [facility]; [facility] Work Phone: Start: 01-29-2020 Lives Lives [facility] Clinical Notes 07-05-2023 to 12-07-2024 Note Date & Type Note Facility 12-07-2024 Evaluation note Diagnosis Onset Date Resolution Abrasion of left index finger inactive December 07, 2024 2:21pm Laceration of left middle finger inactive December 07, 2024 2:21pm Open fracture of phalanx of left ring finger inactive December 07, 2024 2:21pm [facility] Work Phone: 1(447) 111-384007-15-2025 Evaluation note* Diagnosis Onset Date Resolution Status Admit Date Abrasion of left index finger inacti ve December 07, 2024 2:21pm Laceration of left middle finger inactive December 07, 2024 2:21pm Open fracture of phalanx of left ring finger inactive December 07, 2024 2:21pm Abrasion of left index finger inacti ve December 14, 2024 12:53pm Laceration of left middle finger inactive December 14, 2024 12:53pm Open fracture of phalanx of left ring finger inactive December 14, 2024 12:53pm [facility] Work Phone: 1(800) 204-812307-15-2025 Evaluation note* Diagnosis Onset Date Resolution Status Admit Date Abrasion of left index finger inacti ve December 07, 2024 2:21pm Laceration of left middle finger inactive December 07, 2024 2:21pm Open fracture of phalanx of left ring finger inactive December 07, 2024 2:21pm Abrasion of left index finger inacti ve December 14, 2024 12:53pm Laceration of left middle finger inactive December 14, 2024 12:53pm Open fracture of phalanx of left ring finger inactive December 14, 2024 12:53pm Abrasion of left index finger inacti ve December 21, 2024 1:47pm Laceration of left middle finger inactive December 21, 2024 1:47pm Open fracture of phalanx of left ring finger inactive December 21, 2024 1:47pm [facility] Work Phone: 1(869) 580-150507-11-2025 Radiology Diagnostic study note [facility] Services [address] [place], [place] [address] Hand Min 3 Views MR#: [id number] Acct: [id number] Name: EFRAIN OLGUIN Rep #: [id number] : 1990 F 34 From: Josesito Guillermo MD PCP: Dr. Jim Thornton MD Status: R EG ER Study:Hand Min 3 Views Date of Exam: 04/19 Exam# [id number] Ordering Dr: Tamara Hills MD PROCEDURE: HAND MIN 3 VIEWS 12/03/2024 REASON FOR EXAM: INJURY/PAIN TECHNIQUE: HAND MIN 3 VIEWS COMPARISON: None. FINDINGS: Acute nondisplaced fracture at the ulnar aspect of the 4th distal phalanx base, without definite intra-articular extension. No additional acute fracture or dislocation is seen. Preserved joint spaces. Alignment is anatomic. Normal bone mineralization. Mild soft tissue swelling about the 4th digit. RAD/Hand Min 3 Views IMPRESSION: Acute nondisplaced fracture of the 4th distal phalanx base. Reading Location: [id number] CC: Dr. Jim Thornton MD; Dr. Tony Hills MD ~ Retail Aide: Signed [facility]02-11-2024 Miscellaneous Notes* Telephone Encounter - Cody Lan MA - 07/06/2023 3:38 PM EST Patient notified of results, verbalized understanding of instructions given. Cody Lan MA * Telephone Encounter - Titi Velasco APRN.CNP - 07/06/2023 8:12 AM EST Please notify patient positive for flu B. Patient is past treatment window for antivirals Flu is typically 5-7 days of illness Otc management advised, push fluids F/u for worsening s/s. -If you experience chest pain/shortness of breath go to ER [facility] NoteHNO ID: [id number] Author: DELMAR LEGGETT APRN.TREV Service: ? Author Type: Nurse Practitioner Type: Progress Notes Filed: 07/05/2023 09:42 Note Text: CC: Patient presents with: Sore Throat: Fever, cough x 4 days HPI: Efrain Olguin is a 33 year old female who presents to the office with complaint of cough, nonproductive, sore throat, and fever for a few days. Symptoms are improving Associated symptoms includes headache and body aches. Denies nausea, vomiting , and diarrhea. Treatments tried include nothing so far. with no relief of symptoms. Sick contacts: unknown. History of asthma, frequent episodes of bronchitis, chronic bronchitis, bronchiectasis or COPD: No Smoker: No Seasonal/environmental allergies: No The ROS is otherwise negative. The patient's pmh, medications, allergies, and past visits are reviewed. PHYSICAL EXAM: BP 112/70 Pulse 113 Temp (!) 38.2 ?C (100.8 ?F) Resp 21 Wt 62.9 kg (138 lb 9.6 oz) SpO2 97% General appearance: alert, cooperative, pleasant, in no acute distress Head: Normocephalic Eyes: EOM's intact, conjunctiva pink and moist, no icterus, sclera white, non-injected Ears: Right ear: External ear/canal- Normal, TM - clear with good landmarks. Left ear: External ear/canal- Normal, TM - clear with good landmarks Oropharynx:moist without lesions, No erythema, exudates or tonsillar hypertrophy. Heart: Negative. RRR without obvious murmur, gallop, or rubs. No ectopy. Lungs: clear to auscultation, without rales or wheeze, good air exchange No past medical history on file. No past surgical history on file. ALLERGIES Patient has no allergy information on record. MEDICATIONS No prescriptions on file. No family history on file. Social History Tobacco Use Smoking status: Never Passive exposure: Past Smokeless tobacco: Never ASSESSMENT/PLAN: 1. Sore throat - ICD9: 462, ICD10: J02.9 (primary diagnosis) - STREP A MOLECULAR (POC) - neg 2. URI, acute - ICD9: 465.9, ICD10: J06.9 Covid ordered. Prescription instructions reviewed with patient as applicable. Potential red flag symptoms discussed with the patient. Reviewed appropriate action plan to take if red flag symptoms occur. Patient agreeable to treatment plan. Delmar Leggett APRN.[facility]02-10-2024 History of Present illness Narrative* Delmar Leggett APRN.[facility] - 07/05/2023 9:27 AM EST CC: Patient presents with: Sore Throat: Fever, cough x 4 days HPI: Efrain Olguin is a 33 year old female who presents to the office with complaint of cough, nonproductive, sore throat, and fever for a few days. Symptoms are improving Associated symptoms includes headache and body aches. Denies nausea, vomiting , and diarrhea. Treatments tried include nothing so far. with no relief of symptoms. Sick contacts: unknown. History of asthma, frequent episodes of bronchitis, chronic bronchitis, bronchiectasis or COPD: No Smoker: No Seasonal/environmental allergies: No The ROS is otherwise negative. The patient's pmh, medications, allergies, and past visits are reviewed. PHYSICAL EXAM: BP 112/70 Pulse 113 Temp (!) 38.2 C (100.8 F) Resp 21 Wt 62.9 kg (138 lb 9.6 oz) SpO2 97% General appearance: alert, cooperative, pleasant, in no acute distress Head: Normocephalic Eyes: EOM's intact, conjunctiva pink and moist, no icterus, sclera white, non-injected Ears: Right ear: External ear/canal- Normal, TM - clear with good landmarks. Left ear: External ear/canal- Normal, TM - clear with good landmarks Oropharynx:moist without lesions, No erythema, exudates or tonsillar hypertrophy. Heart: Negative. RRR without obvious murmur, gallop, or rubs. No ectopy. Lungs: clear to auscultation, without rales or wheeze, good air exchange No past medical history on file. No past surgical history on file. ALLERGIES Patient has no allergy information on record. MEDICATIONS No prescriptions on file. No family history on file. Social History Tobacco Use Smoking status: Never Passive exposure: Past Smokeless tobacco: Never ASSESSMENT/PLAN: 1. Sore throat - ICD9: 462, ICD10: J02.9 (primary diagnosis) - STREP A MOLECULAR (POC) - neg 2. URI, acute - ICD9: 465.9, ICD10: J06.9 Covid ordered. Prescription instructions reviewed with patient as applicable. Potential red flag symptoms discussed with the patient. Reviewed appropriate action plan to take if red flag symptoms occur. Patient agreeable to treatment plan. Delmar Leggett APRN.TREV [facility]* Diagnosis Sore throat- Primary Acute pharyngitis URI, acute Acute upper respiratory infections of unspecified site documented in this encounter [facility] noteNo assessment information availableWProMedica Memorial Hospital Work Phone: Hospital Discharge instructionsAdditional Instructions You can shower but do not submerge underwater. Pat dry, apply bacitracin and a bandage. Follow-up with the plastic surgeon to have it rechecked. I prescribed antibiotics since there is a broken bone. If you have any signs of infection like significant redness, swelling, pus, increased fever or pain please be seen immediately.[facility] Work Phone: Reason for referral (narrative)No reason for referral information availableWProMedica Memorial Hospital Work Phone: Summary Purpose Family History Arthritis Status:Active Comments:grandpa rents Asthma Status:Active Comments:grandma Blindness Status:Active Comments:cousin Cancer Status:Active Comments:grandfa ther, lung/stomach/throat Diabetes Mellitus Type II Status:Active Commen ts:Great grandparents Heart Disease Status:Active Comments:Great g randparents Hypertension Status:Active Comments:Grandfa ther Thyroid problems Status:Active Comments:great grandma Webbed fingers Status:Active Comments:Son. Arthritis Status:Active Comments:grandpa rents Asthma Status:Active Comments:grandma Blindness Status:Active Comments:cousin Cancer Status:Active Comments:grandfa ther, lung/stomach/throat Diabetes Mellitus Type II Status:Active Commen ts:Great grandparents Heart Disease Status:Active Comments:Great g randparents Hypertension Status:Active Comments:Grandfa ther Thyroid problems Status:Active Comments:great grandma Webbed fingers Status:Active Comments:Son. Arthritis Status:Active Comments:grandpa rents Asthma Status:Active Comments:grandma Blindness Status:Active Comments:cousin Cancer Status:Active Comments:grandfa ther, lung/stomach/throat Diabetes Mellitus Type II Status:Active Commen ts:Great grandparents Heart Disease Status:Active Comments:Great g randparents Hypertension Status:Active Comments:Grandfa ther Thyroid problems Status:Active Comments:great grandma Webbed fingers Status:Active Comments:Son. Arthritis Status:Active Comments:grandpa rents Asthma Status:Active Comments:grandma Blindness Status:Active Comments:cousin Cancer Status:Active Comments:grandfa ther, lung/stomach/throat Diabetes Mellitus Type II Status:Active Commen ts:Great grandparents Heart Disease Status:Active Comments:Great g randparents Hypertension Status:Active Comments:Grandfa ther Thyroid problems Status:Active Comments:great grandma Webbed fingers Status:Active Comments:Son. Arthritis Status:Active Comments:grandpa rents Asthma Status:Active Comments:grandma Blindness Status:Active Comments:cousin Cancer Status:Active Comments:grandfa ther, lung/stomach/throat Diabetes Mellitus Type II Status:Active Commen ts:Great grandparents Heart Disease Status:Active Comments:Great g randparents Hypertension Status:Active Comments:Grandfa ther Thyroid problems Status:Active Comments:great grandma Webbed fingers Status:Active Comments:Son. Arthritis Status:Active Comments:grandpa rents Asthma Status:Active Comments:grandma Blindness Status:Active Comments:cousin Cancer Status:Active Comments:grandfa ther, lung/stomach/throat Diabetes Mellitus Type II Status:Active Commen ts:Great grandparents Heart Disease Status:Active Comments:Great g randparents Hypertension Status:Active Comments:Grandfa ther Thyroid problems Status:Active Comments:great grandma Webbed fingers Status:Active Comments:Son. Arthritis Status:Active Comments:grandpa rents Asthma Status:Active Comments:grandma Blindness Status:Active Comments:cousin Cancer Status:Active Comments:grandfa ther, lung/stomach/throat Diabetes Mellitus Type II Status:Active Commen ts:Great grandparents Heart Disease Status:Active Comments:Great g randparents Hypertension Status:Active Comments:Grandfa ther Thyroid problems Status:Active Comments:great grandma Webbed fingers Status:Active Comments:Son. Arthritis Status:Active Comments:grandpa rents Asthma Status:Active Comments:grandma Blindness Status:Active Comments:cousin Cancer Status:Active Comments:grandfa ther, lung/stomach/throat Diabetes Mellitus Type II Status:Active Commen ts:Great grandparents Heart Disease Status:Active Comments:Great g randparents Hypertension Status:Active Comments:Grandfa ther Thyroid problems Status:Active Comments:great grandma Webbed fingers Status:Active Comments:Son. Arthritis Status:Active Comments:grandpa rents Asthma Status:Active Comments:grandma Blindness Status:Active Comments:cousin Cancer Status:Active Comments:grandfa ther, lung/stomach/throat Diabetes Mellitus Type II Status:Active Commen ts:Great grandparents Heart Disease Status:Active Comments:Great g randparents Hypertension Status:Active Comments:Grandfa ther Thyroid problems Status:Active Comments:great grandma Webbed fingers Status:Active Comments:Son. Arthritis Status:Active Comments:grandpa rents Asthma Status:Active Comments:grandma Blindness Status:Active Comments:cousin Cancer Status:Active Comments:grandfa ther, lung/stomach/throat Diabetes Mellitus Type II Status:Active Commen ts:Great grandparents Heart Disease Status:Active Comments:Great g randparents Hypertension Status:Active Comments:Grandfa ther Thyroid problems Status:Active Comments:great grandma Webbed fingers Status:Active Comments:Son. Arthritis Status:Active Comments:grandpa rents Asthma Status:Active Comments:grandma Blindness Status:Active Comments:cousin Cancer Status:Active Comments:grandfa ther, lung/stomach/throat Diabetes Mellitus Type II Status:Active Commen ts:Great grandparents Heart Disease Status:Active Comments:Marjorie villatoro Hypertension Status:Active Comments:Grandfa ther Thyroid problems Status:Active Comments:great grandma Webbed fingers Status:Active Comments:Son. Arthritis Status:Active Comments:grandpa rents Asthma Status:Active Comments:grandma Blindness Status:Active Comments:cousin Cancer Status:Active Comments:grandfa ther, lung/stomach/throat Diabetes Mellitus Type II Status:Active Commen ts:Great grandparents Heart Disease Status:Active Comments:Marjorie youngblood randparsam Hypertension Status:Active Comments:Grandfa ther Thyroid problems Status:Active Comments:great grandma Webbed fingers Status:Active Comments:Son. Arthritis Status:Active Comments:grandpa rents Asthma Status:Active Comments:grandma Blindness Status:Active Comments:cousin Cancer Status:Active Comments:grandfa ther, lung/stomach/throat Diabetes Mellitus Type II Status:Active Commen ts:Great grandparents Heart Disease Status:Active Comments:Marjorie leesparsam Hypertension Status:Active Comments:Grandfa ther Thyroid problems Status:Active Comments:great grandma Webbed fingers Status:Active Comments:Son. Arthritis Status:Active Comments:grandpa rents Asthma Status:Active Comments:grandma Blindness Status:Active Comments:cousin Cancer Status:Active Comments:grandfa ther, lung/stomach/throat Diabetes Mellitus Type II Status:Active Commen ts:Great grandparents Heart Disease Status:Active Comments:Marjorie villatoro Hypertension Status:Active Comments:Grandfa ther Thyroid problems Status:Active Comments:great grandma Webbed fingers Status:Active Comments:Son. Relationship Condition Age at Onset Recorded Date/T ryan father Hypertension Unknown Malignant neoplasm Unknown Advance Directives Advance Directive Response Recorded Date/ Time Do you have a Healthcare Power of Slurry Tank Tender? No December 03, 2024 7:03pm Health Concerns Infection Onset Date Last Indicated Resolved Time Influenza 07/05/2023 07/05/2023 Infection Onset Date Last Indicated Resolved Time COVID-19 Rule-Out 07/05/2023 07/05/2023 Chief Complaint and Reason for Visit Chief Complaint Admit Date [facility] December 03, 2024 5:14 pm Chief Complaint Admit Date [facility] December 03, 2024 5:14 pm ED FOLLOW UP December 07, 2024 2:21 pm Chief Complaint Admit Date lac December 03, 2024 5:14 pm ED FOLLOW UP December 07, 2024 2:21 pm 1 WEEK FU December 14, 2024 12:5 3pm room 12 December 14, 2024 12:5 9pm Reason for Visit Admit Date Abrasion of left index finger December 07, 2024 2:21pm Laceration of left middle finger December 072024 2:21pm Open fracture of phalanx of left ring fi nger December 07, 2024 2:21pm Chief Complaint Admit Date lac December 03, 2024 5:14 pm ED FOLLOW UP December 07, 2024 2:21 pm 1 WEEK FU December 14, 2024 12:5 3pm room December 14, 2024 12:5 9pm 1 week follow up December 21, 2024 1:47 pm Reason for Visit Admit Date Abrasion of left index finger December 07, 2024 2:21pm Laceration of left middle finger December 072024 2:21pm Open fracture of phalanx of left ring fi nger December 07, 2024 2:21pm Abrasion of left index finger December 14, 2024 12:53pm Laceration of left middle finger December 142024 12:53pm Open fracture of phalanx of left ring fi nger December 14, 2024 12:53pm Chief Complaint Admit Date lac December 03, 2024 5:14 pm ED FOLLOW UP December 07, 2024 2:21 pm 1 WEEK FU December 14, 2024 12:5 3pm room December 14, 2024 12:5 9pm 1 week follow up December 21, 2024 1:47 pm 1 week follow up December 30, 2024 7:5 0am Reason for Visit Admit Date Abrasion of left index finger December 07, 2024 2:21pm Laceration of left middle finger December 072024 2:21pm Open fracture of phalanx of left ring fi nger December 07, 2024 2:21pm Abrasion of left index finger December 14, 2024 12:53pm Laceration of left middle finger December 142024 12:53pm Open fracture of phalanx of left ring fi nger December 14, 2024 12:53pm Abrasion of left index finger December 21, 2024 1:47pm Laceration of left middle finger December 212024 1:47pm Open fracture of phalanx of left ring fi nger December 21, 2024 1:47pm Additional Source Comments INFORMATION SOURCE (unrecogn ized section and content) DATE CREATED AUTHOR 06/21/2021 Tony eGrber [facility] DATE CREATED AUTHOR AUTHOR'S ORGANIZ ATION 07/07/2023 [facility] DATE CREATED AUTHOR AUTHOR'S ORGANIZ ATION 11/24/2024 [facility] DATE CREATED AUTHOR AUTHOR'S ORGANIZ ATION 12/24/2024 [facility] Source Comments (unrecognize d section and content) In the event this informatio n is protected by the Federal Confidentiality of Alcohol and Drug Abuse Patient Records regulations: The Federal rules restrict any use of the information to criminally investigate or prosecute any alcohol or drug abuse patient.[facility] the event this information is protected by the Federal Confidentiality of Alcohol and Drug Abuse Patient Records regulations: The Federal rules restrict any use of the information to criminally investigate or prosecute any alcohol or drug abuse patient.[facility] Reason for Visit (unrecogniz ed section and content) Reason Comments Results Reason Comments Sore Throat Fever, cough x 4 day s Care Teams (unrecognized sec tion and content) Team Status: Active Member Role/Relationship Status Dates Dr. Jim Thornton MD Primary Care Provider Active Team Status: Inactive Member Role/Relationship Status Dates Dr. Jim Thornton MD Primary Care Provider Active Start: December 03, 2024 End: December 03, 2024 Dr. Tony Hills MD Emergency Provider Active Sta rt: December 03, 2024 End: December 03, 2024 Team Status: Inactive Member Role/Relationship Status Dates Dr. Jim Thornton MD Primary Care Provider Active Start: December 07, 2024 End: December 07, 2024 Dr. Jim Thornton MD Referring Provider Active Start: December 07, 2024 End: December 07, 2024 Dr. Randy Kearns MD Attending Provider Active Start: December 07, 2024 End: December 07, 2024 Team Status: Inactive Member Role/Relationship Status Dates Dr. Jim Thornton MD Primary Care Provider Active Start: December 03, 2024 End: December 03, 2024 Dr. Tony Hills MD Attending Provider Active Sta rt: December 03, 2024 End: December 03, 2024 Dr. Tony Hills MD Emergency Provider Active Sta rt: December 03, 2024 End: December 03, 2024 Team Status: Active Member Role/Relationship Status Dates Dr. Jim Thornton MD Primary Care Provider Active Start: December 14, 2024 Dr. Jim Thornton MD Referring Provider Active Start: December 14, 2024 Dr. Randy Kearns MD Attending Provider Active Start: December 14, 2024 Team Status: Inactive Member Role/Relationship Status Dates Dr. Jim Thornton MD Primary Care Provider Active Start: December 14, 2024 End: December 14, 2024 Dr. London Ingram MD Attending Provider Active S tart: December 14, 2024 End: December 14, 2024 Team Status: Inactive Member Role/Relationship Status Dates Dr. Jim Thornton MD Primary Care Provider Active Start: December 14, 2024 End: December 14, 2024 Dr. Jim Thornton MD Referring Provider Active Start: December 14, 2024 End: December 14, 2024 Dr. Randy Kearns MD Attending Provider Active Start: December 14, 2024 End: December 14, 2024 Team Status: Inactive Member Role/Relationship Status Dates Dr. Jim Thornton MD Primary Care Provider Active Start: December 21, 2024 End: December 21, 2024 Dr. Jim Thornton MD Referring Provider Active Start: December 21, 2024 End: December 21, 2024 Dr. Randy Kearns MD Attending Provider Active Start: December 21, 2024 End: December 21, 2024 Team Status: Inactive Member Role/Relationship Status Dates Dr. Jim Thornton MD Primary Care Provider Active Start: December 30, 2024 End: December 30, 2024 Dr. Jim Thornton MD Referring Provider Active Start: December 30, 2024 End: December 30, 2024 Dr. Randy Kearns MD Attending Provider Active Start: December 30, 2024 End: December 30, 2024 Goals (unrecognized section and content) Goals may be documented in a n alternate sectionGoals may be documented in an alternate sectionGoals may be documented in an alternate sectionGoals may be documented in an alternate sectionGoals may be documented in an alternate sectionGoals may be documented in an alternate section FOR RECORDS PERTAINING TO PATIENTS WHO ARE OR HAVE BEEN ENROLLED IN A CHEMICAL DEPENDENCY/SUBSTANCEABUSE PROGRAM, SOME INFORMATION MAY BE OMITTED. This clinical summary was aggregated from multiple sources. Caution should be exercised in using it in the provision of clinical care. This summary normalizes information from multiple sources, and as a consequence, information in this document may materially change the coding, format and clinical context of patient data. In addition, data may be omitted in some cases. CLINICAL DECISIONS SHOULD BE BASED ON THE PRIMARY CLINICAL RECORDS. [facility] [employer] provides no warranty or guarantee of the accuracy or completeness of information in this document.
--- OUTSIDE RECORDS SUMMARY | 2024-12-30 08:48 | XMS RPT_ITS | CCD ---
Author Organization [facility] CliniSynj Care Team Providers Care Interior Assemblies Installer Name Role Phone SAVANNA, LUKE Admitting Unavailable [...] Care Provider Unavailabl Jim Vega MD Unavailable [phone] ENT Provider Unavailable Unavailable Amy Brody MD Unavailable Joanie GANNON, Erika Unavailable Rodo DE JESUS, Nadia Bee Unavailable Kristofer Malagon MD Unavailable Bebe Manley MA Unavailable Unavailable Ericka Perez PA-C Unavailable Barak Corrales PA-C Unavailable Gabriella Duvall MA Unavailable Unavailable Adriana Omalley LPN Unavailable Unavailable Ericka Kovacs RN Unavailable UnavailGeorgina Suazo RN Unavailable Daniela Cantu PA-C Unavailable Franci Valera LPN Unavailable Unavailab alhaji Smith [...] Care Unavailable Tony Hills Attending Unavailable Bess, Jim Primary Care Unavailable Vaccpatricia, Jim Referring Unavailable [...] Drug Class(es) Dates Sig (Normalized) Sig (Original) [id number] 200 actuat albuterol 0.09 mg/actuat metered dose [...] 21, 2024 12:07am 21 day ethinyl estradiol 0.041386 mg/hr / etonogestrel 0.005 mg/hr vaginal system [...] occurring for 9 days (Patient was at [facility], walking on the sand. All of [...] for Abdominal pain: -5 days post d&c. [place] feverish 2 days ago. Is working today. [...] Report on 12-21-2024 Plastic Surgery Visit Report [facility] Plastic Reconstructive Surgery [address], [address] [place] [address] OFFICE VISIT Date of Service: 12/21/24 MR#: [id number] Acct: [id number] Name: EFRAIN OLGUIN Rep #: [id number] : 1990 Provider: Dr. 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 Normal [facility] Hand Min 3 Viewson 5 Hand Min 3 Views [facility] Imaging Services [address] [place] [address] Hand Min 3 Views MR#: [id number] Acct: [id number] Name: EFRAIN OLGUIN Rep #: [id number] : 1990 F 34 From: Tee Delvalle MD PCP: Dr. Jim Thornton MD Status: DEP AMB Study: Hand Min 3 Views Date of Exam: 12/14/24 Exam# [id number] Ordering Dr: Randy Kearns MD PROCEDURE: HAND MIN 3 VIEWS 12/14/2024 REASON FOR EXAM: LACERATION FRACTURE, FOLLOW UP TECHNIQUE: HAND MIN 3 VIEWS COMPARISON: 12/03/2024 FINDINGS: Acute, nondisplaced, intra-articular fracture, base of distal phalange, 4th digit, is redemonstrated. No visible healing. No dislocation. RAD/Hand Min 3 Views IMPRESSION: Stable appearance of recent 4th digit injury. Reading Location: [place] [address] CC: Dr. Jim Thornton MD; Dr. Randy Kearns MD Mission Coordinator: Signed Normal [facility] Plastic Surgery Visit Report on 12-14-2024 Plastic Surgery Visit Report [facility] Plastic Reconstructive Surgery [address], [address] [place] [address] OFFICE VISIT Date of Service: 12/14/24 MR#: [id number] Acct: [id number] Name: EFRAIN OLGUIN Rep #: [id number] : 1990 Provider: Dr. 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 Normal [facility] Plastic Surgery Visit Report on 12-07-2024 Plastic Surgery Visit Report [facility] Plastic Reconstructive Surgery [address], [address] [place], [place] [address] OFFICE VISIT Date of Service: 12/07/24 MR#: [id number] Acct: [id number] Name: EFRAIN OLGUIN Rep #: [id number] : 1990 Provider: Dr. 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 Normal [facility] Emergency Department Summary on 12-03-2024 Emergency Department Summary [facility] Medical Records Department [address] [place] [address] Emergency Department Summary 12/03/24 MR#: [id number] Acct: [id number] Name: EFRAIN OLGUIN Rep #: [id number] : 1990 34 From: Tony Hills MD [...] includes finger laceration versus open fracture 34-year-old [id number] female presents with left hand lacerations. The [...] her index, (more content not included)... Normal [facility] Hand Min 3 Viewson 5 Hand Min 3 Views [facility] Imaging Services [address] [place] [address] Hand Min 3 Views MR#: [id number] Acct: [id number] Name: EFRAIN OLGUIN Rep #: [id number] : 1990 F 34 From: Butch Guillermo MD PCP: Dr. Jim Thornton MD Status: DEP ER Study: Hand Min 3 Views Date of Exam: 12/03/24 Exam# [id number] Ordering Dr: Tony Hills MD ADDENDUM by Dr. Butch Guillermo MD on 12/13/24 at 2328 FRONTAL, LATERAL AND OBLIQUE RADIOGRAPHS OF THE LEFT HAND: Acute nondisplaced fracture of the left 4th distal phalanx base. Reading Location: [facility] 12/13/24 2328 Date cc: Dr. Jim Thornton [...] the 4th distal phalanx base. Reading Location: [facility] CC: Dr. Jim Thornton MD; Dr. Tony Hills MD Mission Coordinator: Signed Normal [facility] COMPREHENSIVE METABOLIC PANE Brannon 11-23-2024 Albumin [Mass/Vol] 4.3 g/dL Normal 3.6-5.1 [facility] Comment on above: Performed By: #### 1 7701, 1730 #### [facility] [address], [address] [place] [id number] Drawer Fitter: Rob Hernandes MD Albumin/Globulin [Mass ratio] 1.7 {ratio} Normal 1.0-2.5 [facility] Comment on above: Performed By: #### 1 023, 7600 #### [facility] of [place] [address] Drawer Fitter: Rob Hernandes MD ALP [Catalytic activity/Vol] 48 U/L Normal 31-125 [facility] Comment on above: Performed By: #### 1 230, 7600 #### [facility] of [address], [address] [place] [address] Drawer Fitter: Rob Hernandes MD ALT [Catalytic activity/Vol] 11 U/L Normal 6-29 [facility] Comment on above: Performed By: #### 1 230, 7600 #### [facility] [place] [address] Drawer Fitter: Rob Hernandes MD AST [Catalytic activity/Vol] 16 U/L Normal 10-30 [facility] Comment on above: Performed By: #### 1 230, 7600 #### [facility] of [address], [address] [place] [address] Drawer Fitter: Rob Hernandes MD Bilirubin [Mass/Vol] 0.5 mg/dL Normal 0.2-1.2 [facility] Comment on above: Performed By: #### 1 230, 7600 #### [facility] of [place] [address] Drawer Fitter: Rob Hernandes MD BUN/CREATININE RATIO SEE NOTE: Normal 6-22 [facility] Comment on above: Result Comment: Not Reported: BUN and Creatinine are within reference range. Performed By: #### 1 023, 7600 #### [facility] of [address], [address] [place] [address] Drawer Fitter: Rob Hernandes MD Calcium [Mass/Vol] 8.9 mg/dL Normal 8.6-10.2 [facility] Comment on above: Performed By: #### 1 023, 7600 #### [facility] of [address], [address] [place] [address] Drawer Fitter: Rob Hernandes MD Chloride [Moles/Vol] 107 mmol/L Normal 98-110 [facility] Comment on above: Performed By: #### 1 0231, 7600 #### [facility] of [address], [address] [place] [address] Drawer Fitter: Rob Hernandes MD CO2 [Moles/Vol] 26 mmol/L Normal 20-32 [facility] Comment on above: Performed By: #### 1 023, 7600 #### [facility] of [address], [address] [place] [address] Drawer Fitter: Rob Hernandes MD Creatinine [Mass/Vol] 0.64 mg/dL Normal 0.50-0.[address] [facility] [address] [facility] Comment on above: Performed By: #### 1 023, 7600 #### [facility] of [address], [address] [place] [address] Drawer Fitter: Rob Hernandes MD GFR/1.73 sq M.predicted among non-blacks MDRD (S/P/Bld) [Vol rate/Area] 117 mL/min/{1.73_m2} Normal > [place] = 60 [facility] Comment on above: Performed By: #### 1 023, 7600 #### [facility] of [address], [address] [place] [address] Drawer Fitter: Rob Hernandes MD Globulin (S) [Mass/Vol] 2.5 g/dL Normal 1.9-3.7 [facility] Comment on above: Performed By: #### 1 0231, 7600 #### [facility] of [address], [address] [place] [address] Drawer Fitter: Rob Hernandes MD Glucose [Mass/Vol] 84 mg/dL Normal 65-99 [facility] Comment on above: Result Comment: Fasting reference interval Performed By: #### 1 0231, 7600 #### [facility] of [address], [address] [place] [address] Drawer Fitter: Rob Hernandes MD Potassium [Moles/Vol] 3.7 mmol/L Normal 3.5-5.[address] [facility] Comment on above: Performed By: #### 1 0231, 7600 #### [facility] of [place] [address] Drawer Fitter: Rob Hernandes MD Protein [Mass/Vol] 6.8 g/dL Normal 6.1-8.1 [facility] Comment on above: Performed By: #### 1 023, 7600 #### [facility] [place] [address] Drawer Fitter: Rob Hernandes MD Sodium [Moles/Vol] 140 mmol/L Normal 135-146 [facility] Comment on above: Performed By: #### 1 023, 0 #### [facility] [place] [address] Drawer Fitter: Rob Hernandes MD Urea nitrogen [Mass/Vol] 13 mg/dL Normal 7-25 [facility] Comment on above: Performed By: #### 1 023, 0 #### [facility] of [place] [address] Drawer Fitter: Rob Hernandes MD LIPID PANEL, STANDARD 07-0 Cholesterol [Mass/Vol] 171 mg/dL Normal <200 [facility] Comment on above: Performed By: #### 1 0231, 7600 #### [facility] of [place] [address] Drawer Fitter: Rob Hernandes MD Cholesterol in HDL [Mass/Vol] 72 mg/dL Normal > [place] = 50 [facility] Comment on above: Performed By: #### 1 0231, 7600 #### [facility] of [place] [address] Drawer Fitter: Rob Hernandes MD Cholesterol in LDL [Mass/Vol] [...] LDL-C. Angel COTE et al. TERESA. 2013;310(19): 2800-4022 (http://education.AccelOne.Soundstache/faq/NXI743) Performed By: #### 1 0231, 7600 #### [facility] [address], [address] [place] [address] Drawer Fitter: Rob Hernandes MD Cholesterol.total/Cho lesterol in HDL [Mass ratio] 2.4 {ratio} Normal <5.0 [facility] Comment on above: Performed By: #### 1 023, 7600 #### [facility] [address], [address] [place] [address] Drawer Fitter: Rob Hernandes MD NON HDL CHOLESTEROL 99 mg/dL (calc) Normal <130 [facility] Comment on above: Result Comment: For patients with diabetes plus 1 major ASCVD risk factor, treating to a non-HDL-C goal of <100 mg/dL (LDL-C of <70 mg/dL) is considered a therapeutic option. Performed By: #### 1 023, 7600 #### [facility] [address], [address] [place] [address] Drawer Fitter: Rob Hernandes MD Triglyceride [Mass/Vol] 36 mg/dL Normal <150 [facility] Comment on above: Performed By: #### 1 023, 7600 #### [facility] [address], [address] [place] [address] Drawer Fitter: Rob Hernandes MD Laboratory - Chemistry and C hemistry - challengeon 11-22-2024 Albumin [Mass/Vol] 4.3 g/dL Normal 3.6 - 5.1 g/dL [facility] Albumin/Globulin [Mass ratio] 1.7 {ratio} Normal 1.0 - 2.5 [facility].; [facility], [facility]. ALP [Catalytic activity/Vol] 48 U/L Normal 31 - 125 U/L [facility].; [facility], [facility]. ALT [Catalytic activity/Vol] 11 U/L Normal 6 - 29 U/L [facility], [facility].; [facility], [facility]. AST [Catalytic activity/Vol] 16 U/L Normal 10 - 30 U/L [facility].; [facility], [facility] Bilirubin [Mass/Vol] 0.5 mg/dL Normal 0.2 - 1 .2 mg/dL [facility].; [facility], [facility] Calcium [Mass/Vol] 8.9 mg/dL Normal 8.6 - 10. 2 mg/dL [facility].; [facility], [facility]. Chloride [Moles/Vol] 107 mmol/L Normal 98 - 11 0 mmol/L [facility].; [facility], [facility]. Cholesterol [Mass/Vol] 171 mg/dL Normal [facility].; [facility], [facility]. Cholesterol in HDL [Mass/Vol] 72 mg/dL Normal [facility].; [facility], [facility]. Cholesterol in LDL [Mass/Vol] 89 mg/dL Normal [facility], [facility].; [facility], [facility]. CO2 [Moles/Vol] 26 mmol/L Normal 20 - 32 mmol/L [facility].; [facility], [facility] Creatinine [Mass/Vol] 0.64 mg/dL Normal 0.50 - 0.97 mg/dL [facility], [facility].; [facility], [facility]. GFR/1.73 sq M.predicted among non-blacks MDRD (S/P/Bld) [Vol rate/Area] 117 mL/min/{1.73_m2} Normal [facility].; [facility], [facility]. Glucose [Mass/Vol] 84 mg/dL Normal 65 - 99 mg/dL [facility].; [facility], [facility] Potassium [Moles/Vol] 3.7 mmol/L Normal 3.5 - 5.3 mmol/L [facility].; [facility], [facility]. Protein [Mass/Vol] 6.8 g/dL Normal 6.1 - 8.1 g/dL [facility].; [facility], [facility]. Sodium [Moles/Vol] 140 mmol/L Normal 135 - 146 mmol/L [facility].; [facility], [facility]. Triglyceride [Mass/Vol] 36 mg/dL Normal [facility]; [facility], [facility] Urea nitrogen [Mass/Vol] 13 mg/dL Normal 7 - 25 mg/dL [facility].; [facility], [facility] No Panel Informationon 11-22 BUN/CREATININE RATIO SEE NOTE: Normal - [facility].; [facility], [facility]. CHOL/HDLC RATIO 2.4 Normal [facility]; [facility], [facility]. GLOBULIN 2.5 Normal 1.9 - 3.7 [facility]; [facility], [facility]. NON HDL CHOLESTEROL 99 Normal [facility].; [facility], [facility]. THINPREP TIS PAP AND HPV mRN A E6/E7on 03-08-2024 CLINICAL INFORMATION: Normal [facility] Comment on above: Result Comment: None given Performed By: #### 9 0933 #### [facility] [address], [address] [place], [place] [id number] Drawer Fitter: Rob Hernandes MD COMMENT Normal [employer] Comment on above: Result Comment: EXPL ANATORY [...] By: #### 9 0933 #### [facility] [address], [address] [place], [place] [id number] Drawer Fitter: Rob Hernandes MD COMMENT: Normal [facility] Comment on above: Result Comment: This Pap test has been evaluated with computer assisted technology. Performed By: #### 9 0933 #### [facility] [place] [address] Drawer Fitter: Rob Hernandes MD ASSISTANT PROFESSOR OF NURSING: Normal [facility] Comment on above: Result Comment: JOYCE CT(ASCP) CT screening location: [place] [address]. Performed By: #### 9 0933 #### [facility] [place] [address] Drawer Fitter: Rob Hernandes MD HPV mRNA E6/E7 Not detected Normal Not Detected [facility] Comment on above: Result Comment: Meth odology: Underground Electric[employer]-Mediated Amplification This assay detects E6/E7 viral messenger RNA (mRNA) from 14 high-risk HPV types (16,18,31,33,35,39,45,51,52,56,58,59,66,68). Cervical sources are required for HPV testing. If a vaginal source from a patient who has had a total hysterectomy with removal of cervix was submitted, please contact the testing laboratory for alternative testing options. For additional information, please refer to http://education.Precog/faq/XGS663q2 (This link if provided for information/ educational purposes only.) Performed By: #### 9 0933 #### [facility] [place] [address] Drawer Fitter: Rob Hernandes MD INTERPRETATION/RESULT : Normal [facility] Comment on above: Result Comment: Cyto logy Results: Negative for intraepithelial lesion or malignancy. Performed By: #### 9 0933 #### [facility] [place] [address] Drawer Fitter: Rob Hernandes MD LMP: Normal [facility] Comment on above: Result Comment: None given Performed By: #### 9 0933 #### [facility] [place] [address] Drawer Fitter: Rob Hernandes MD PREV. BX: Normal [facility] Comment on above: Result Comment: None given Performed By: #### 9 0933 #### [facility] of [address], [address] [place] [address] Drawer Fitter: Rob Hernandes MD PREV. PAP: Normal [facility] Comment on above: Result Comment: None given Performed By: #### 9 0933 #### [facility] of [address], [address] [place] [address] Drawer Fitter: Rob Hernandes MD REVIEW ASSISTANT PROFESSOR OF NURSING: Normal [facility] Comment on above: Result Comment: PCJ, SCT(ASCP) CT screening location: [place] [address]. Performed By: #### 9 0933 #### [facility] [place] [address] Drawer Fitter: Rob Hernandes MD SOURCE: Normal [facility] Comment on above: Result Comment: None given Performed By: #### 9 0933 #### [facility] [address], [address] [place] [address] Drawer Fitter: Rob Hernandes MD STATEMENT OF ADEQUACY: Normal [facility] Comment on above: Result Comment: Sati sfactory for evaluation. Endocervical/transformation zone component absent. Performed By: #### 9 0933 #### [facility] of [address], [address] [place] [address] Drawer Fitter: Rob Hernandes MD Panel Informationon 03-05 [id number] SEE NOTE Normal [facility], [facility].; [employer] [facility] CLINICAL INFORMATION: SEE NOTE Normal [facility], [facility].; [employer] COMMENT: SEE NOTE Normal [facility], [facility].; [employer] ASSISTANT PROFESSOR OF NURSING: SEE NOTE Normal [facility], [facility].; [employer] HPV mRNA E6/E7 Not detected Normal [facility].; [employer] INTERPRETATION/RESULT : SEE NOTE Normal [facility], [facility].; [employer] LMP: SEE NOTE Normal [facility], [facility].; [facility] [employer] PREV. BX: SEE NOTE Normal [facility] PREV. PAP: SEE NOTE Normal [facility] REVIEW ASSISTANT PROFESSOR OF NURSING: SEE NOTE Normal [facility] SOURCE: SEE NOTE Normal [facility], [facility].; [employer] [facility] STATEMENT OF ADEQUACY: SEE NOTE Normal [employer] [facility] COMPREHENSIVE METABOLIC PANE [facility] 02-21-2024 Albumin [Mass/Vol] 4.6 g/dL Normal 3.6-5.1 [facility] Comment on above: Performed By: #### 7 600, 50975 #### [facility] [place] [address] Drawer Fitter: Rob Hernandes MD Albumin/Globulin [Mass ratio] 1.8 {ratio} Normal 1.0-2.5 [facility] Comment on above: Performed By: #### 7 600, 74651 #### [facility] [place] [address] Drawer Fitter: Rob Hernandes MD ALP [Catalytic activity/Vol] 51 U/L Normal 31-125 [facility] Comment on above: Performed By: #### 7 600, 70267 #### [facility] [place] [address] Drawer Fitter: Rob Hernandes MD ALT [Catalytic activity/Vol] 13 U/L Normal 6-29 [facility] Comment on above: Performed By: #### 7 600, 55329 #### [facility] [place] [address] Drawer Fitter: Rob Hernandes MD AST [Catalytic activity/Vol] 17 U/L Normal 10-30 [facility] Comment on above: Performed By: #### 7 600, 40456 #### [facility] [place] [address] Drawer Fitter: Rob Hernandes MD Bilirubin [Mass/Vol] 0.5 mg/dL Normal 0.2-1.2 [facility] Comment on above: Performed By: #### 7 600, 05768 #### [facility] [place] [address] Drawer Fitter: Rob Hernandes MD BUN/CREATININE RATIO SEE NOTE: Normal 6-22 [facility] Comment on above: Result Comment: Not Reported: BUN and Creatinine are within reference range. Performed By: #### 7 600, 93813 #### [facility] of [address], [address] [place] [address] Drawer Fitter: Rob Hernandes MD Calcium [Mass/Vol] 9.5 mg/dL Normal 8.6-10.2 [facility] Comment on above: Performed By: #### 7 600, 53482 #### [facility] [place] [address] Drawer Fitter: Rob Hernandes MD Chloride [Moles/Vol] 105 mmol/L Normal 98-110 [facility] Comment on above: Performed By: #### 7 600, 44275 #### [facility] [place] [address] Drawer Fitter: Rob Hernandes MD CO2 [Moles/Vol] 26 mmol/L Normal 20-32 [facility] Comment on above: Performed By: #### 7 600, 17234 #### [facility] [place] [address] Drawer Fitter: Rob Hernandes MD Creatinine [Mass/Vol] 0.72 mg/dL Normal 0.50-0.[address] [facility] Comment on above: Performed By: #### 7 600, 09094 #### [facility] [place] [address] Drawer Fitter: Rob Hernandes MD GFR/1.73 sq M.predicted among non-blacks MDRD (S/P/Bld) [Vol rate/Area] 112 mL/min/{1.73_m2} Normal > [place] = 60 [facility] Comment on above: Performed By: #### 7 600, 12477 #### [facility] of [address], [address] [place] [address] Drawer Fitter: Rob Hernaneds MD Globulin (S) [Mass/Vol] 2.6 g/dL Normal 1.9-3.7 [facility] Comment on above: Performed By: #### 7 600, 50958 #### [facility] of [address], [address] [place] [address] Drawer Fitter: Rob Hernandes MD Glucose [Mass/Vol] 98 mg/dL Normal 65-99 [facility] Comment on above: Result Comment: Fasting reference interval Performed By: #### 7 600, 35252 #### [facility] of [address], [address] [place] [address] Drawer Fitter: Rob Hernandes MD Potassium [Moles/Vol] 4.0 mmol/L Normal 3.5-5.[address] [facility] Comment on above: Performed By: #### 7 600, 03999 #### [facility] of [address], [address] [place] [address] Drawer Fitter: Rob Hernandes MD Protein [Mass/Vol] 7.2 g/dL Normal 6.1-8.1 [facility] Comment on above: Performed By: #### 7 600, 24708 #### [facility] [place] [address] Drawer Fitter: Rob Hernandes MD Sodium [Moles/Vol] 140 mmol/L Normal 135-146 [facility] Comment on above: Performed By: #### 7 600, 46878 #### [facility] of [address], [address] [place] [address] Drawer Fitter: Rob Hernandes MD Urea nitrogen [Mass/Vol] 14 mg/dL Normal 7-25 [facility] Comment on above: Performed By: #### 7 600, 12780 #### [facility] of [address], [address] [place] [address] Drawer Fitter: Rob Hernandes MD LIPID PANEL, [facility] 01-25 Cholesterol [Mass/Vol] 161 mg/dL Normal <200 [facility] Comment on above: Performed By: #### 7 600, 96581 #### [facility] [place] [address] Drawer Fitter: Rob Hernandes MD Cholesterol in HDL [Mass/Vol] 77 mg/dL Normal > [place] = 50 [facility] Comment on above: Performed By: #### 7 600, 14326 #### [facility] [place] [address] Drawer Fitter: Rob Hernandes MD Cholesterol in LDL [Mass/Vol] [...] LDL-C. Angel COTE et al. TERESA. 2013;310(19): 4825-4849 (http://education.AccelOne.Soundstache/faq/KDI181) Performed By: #### 7 600, 86029 #### [facility] [place] [address] Drawer Fitter: Rob Hernandes MD Cholesterol.total/Cho lesterol in HDL [Mass ratio] 2.1 {ratio} Normal <5.0 [facility] Comment on above: Performed By: #### 7 [id number], [id number] #### [facility] [place] [address] Drawer Fitter: Rob Hernandes MD NON HDL CHOLESTEROL 84 mg/dL (calc) Normal <130 [facility] Comment on above: Result Comment: For patients with diabetes plus 1 major ASCVD risk factor, treating to a non-HDL-C goal of <100 mg/dL (LDL-C of <70 mg/dL) is considered a therapeutic option. Performed By: #### 7 [id number], [id number] #### [facility] [address], [address] [place] [address] Drawer Fitter: Rob Hernandes MD Triglyceride [Mass/Vol] 33 mg/dL Normal <150 [facility] Comment on above: Performed By: #### 7 600, [id number] #### [facility] [address], [address] [place] [address] Drawer Fitter: Rob Hernandes MD Laboratory - Chemistry and C hemistry - challengeon 02-20-2024 Albumin [Mass/Vol] 4.6 g/dL Normal 3.6 - 5.1 g/dL [facility] [employer] Albumin/Globulin [Mass ratio] 1.8 {ratio} Normal 1.0 - 2.5 [employer] [employer] [facility], [facility].; [employer] ALP [Catalytic activity/Vol] 51 U/L Normal 31 - 125 U/L [employer], [facility].; [employer] ALT [Catalytic activity/Vol] 13 U/L Normal 6 - 29 U/L [employer], [facility].; [employer] AST [Catalytic activity/Vol] 17 U/L Normal 10 - 30 U/L [employer], [facility].; [employer] Bilirubin [Mass/Vol] 0.5 mg/dL Normal 0.2 - 1 .2 mg/dL [employer], [facility].; [employer] Calcium [Mass/Vol] 9.5 mg/dL Normal 8.6 - 10. 2 mg/dL [employer], [facility].; [employer] Chloride [Moles/Vol] 105 mmol/L Normal 98 - 11 0 mmol/L [employer], [facility].; [employer] Cholesterol [Mass/Vol] 161 mg/dL Normal [employer] Cholesterol in HDL [Mass/Vol] 77 mg/dL Normal [employer].; [employer] Cholesterol in LDL [Mass/Vol] 75 mg/dL Normal [employer].; [employer] CO2 [Moles/Vol] 26 mmol/L Normal 20 - 32 mmol/L [facility]. Creatinine [Mass/Vol] 0.72 mg/dL Normal 0.50 - 0.97 mg/dL [facility].; [facility], [facility]. GFR/1.73 sq M.predicted among non-blacks MDRD (S/P/Bld) [Vol rate/Area] 112 mL/min/{1.73_m2} Normal [facility], [facility].; [employer] [facility], [facility]. Glucose [Mass/Vol] 98 mg/dL Normal 65 - 99 mg/dL [facility].; [facility], [facility]. Potassium [Moles/Vol] 4.0 mmol/L Normal 3.5 - 5.3 mmol/L [facility].; [facility], [employer]. Protein [Mass/Vol] 7.2 g/dL Normal 6.1 - 8.1 g/dL [facility], [facility].; [facility], [facility] Sodium [Moles/Vol] 140 mmol/L Normal 135 - 146 mmol/L [facility].; [employer], [employer]. Triglyceride [Mass/Vol] 33 mg/dL Normal [facility].; [facility]. Urea nitrogen [Mass/Vol] 14 mg/dL Normal 7 - 25 mg/dL [facility].; [employer]. No Panel Informationon 02-19 BUN/CREATININE RATIO SEE NOTE: Normal 6 - 22 [facility].; [employer], [employer]. CHOL/HDLC RATIO 2.1 Normal [facility].; [employer], [employer] GLOBULIN 2.6 Normal 1.9 - 3.7 [facility].; [employer], [employer]. NON HDL CHOLESTEROL 84 Normal [facility].; [employer], [employer]. [place] 07-06-2023 EMILY Telephone ([facility]) EFRAIN OLGUIN ([id number]) 1990 F Date Time Provider Department 07/06/23 [...] Encounter Status:Closed by CODY LAN on 07/06/23 [facility] CNOVon 07-05-2023 CNOV Office Visit ([facility]) OLGUINEFRAIN MARTINEZ ([id number]) 1990 F Date Time Provider Department 07/05/23 [...] Patient agreeable to treatment plan. Delmar Leggett APRN.ENGINEERING OPERATOR Allergies As of Date: 07/05/2023 (Not on File) Date Reviewed: 07/05/2023 Reviewed by: Efrain Saravia MA - Fully Assessed Reason for Visit: Sore Throat [200] Cmt: Fever, cough x 4 days Primary Visit Diagnosis:Sore throat [J02.9] Other Visit Diagnosis:URI, acute [J06.9] Order(s):STREP A MOLECULAR (POC) [0267933] Order #: [id number]. #:[id number] COVID AND INFLUENZA A/B AND RSV NAAT, ROUTINE [SQCVFLRS] Order #: [id number] FUTURE COVID AND INFLUENZA A/B AND RSV NAAT, ROUTINE [SQCVFLRS] Order #: [id number]. #:[id number] Problem List As Of Date: 07/05/2023 (None) Encounter Status:Closed by DELMAR LEGGETT on 07/05/[address] [facility] COVID AND INFLUENZA A/B AND RSV NAAT, ROUTINEon 07-05-2023 SARS-CoV-2 (COVID-19) RNA STACI+probe Ql (Unsp spec) COVID 19 RESULT: Not detected The method used is RT-PCR or an equivalent NAAT method. Reference Range (the expected result in uninfected individuals): Not detected INFLUENZA A PCR: Not detected INFLUENZA B PCR: Detected RSV PCR: Not detected Abnormal [facility] Comment on above: Performed By: #### C VFLRS #### [facility] CLIA [id number] [address] [place] [address] [place] STREP A MOLECULAR (POC)on Procedural Control Valid [facility] Strep A (POCT) Negative Negative [facility] US SOFT TISSUE NECK/HEADon 0 06-20-2021 SOFT TISSUE NECK/HEAD [place] [address] Patient: EFRAIN OLGUIN Phone#: : 1990 Age: 31 Gender: F Pt. Type: Out Account: [id number] Location: Ordering: BARAK CORRALES Exam Date: 06/20/2021/7:44 Family Phys: JIM THORNTON Charge Code: 793180 Physician: Holt Order #: [id number] DLP Dose#: PROCEDURE: SOFT TISSUE NECK/HEAD COMPARISON: [...] Adair MD on 06/20/2021 at 13:49 Normal [facility] CHEST 2 VIEWSon 06-15-2021 CHEST 2 VIEWS [place] [address] Patient: EFRAIN OLGUIN Phone#: : 1990 Age: 31 Gender: F Pt. Type: Out Account: [id number] Location: Ordering: BARAK CORRALES Exam Date: 06/15/2021/9:14 Family Phys: Charge Code: 307223 Physician: Holt Order #: [id number] DLP Dose#: PROCEDURE: X-RAY CHEST 2 VIEWS [...] Jama MD on 06/15/2021 at 11:28 Normal [facility] Laboratory - Chemistry and C hemistry - challengeon 06-13-2021 Calcium [Mass/Vol] 8.8 mg/dL Normal 8.6 - 10. 2 mg/dL [facility], [facility].; [employer] [facility], [facility]. Chloride [Moles/Vol] 104 mmol/L Normal 98 - 11 0 mmol/L [facility], [facility].; [employer] [facility], [facility] CO2 [Moles/Vol] 25 mmol/L Normal 20 - 32 mmol/L [facility], [facility].; [facility], [facility] Creatinine [Mass/Vol] 0.65 mg/dL Normal 0.50 - 1.10 mg/dL [facility], [facility].; [facility] [facility], [employer]. GFR/1.73 sq M.predicted among blacks MDRD (S/P/Bld) [Vol rate/Area] 135 mL/min/{1.73_m2} Normal [facility], [facility].; [employer] [facility], [employer]. Glucose [Mass/Vol] 82 mg/dL Normal 65 - 99 mg/dL [facility].; [employer], Inc[employer] Potassium [Moles/Vol] 4.0 mmol/L Normal 3.5 - 5.3 mmol/L [facility], [facility].; [employer], [employer] Sodium [Moles/Vol] 137 mmol/L Normal 135 - 146 mmol/L [facility], [facility].; [employer], [employer] Urea nitrogen [Mass/Vol] 9 mg/dL Normal 7 - 25 mg/dL [facility], [facility].; [employer], [employer]. Laboratory - Hematology and Cell countson 06-13-2021 Basophils (Bld) [#/Vol] 0.041 10*3/uL Normal 0 - 200 {cells/uL} [employer] [facility], [facility].; [employer], [employer]. Basophils/100 WBC (Bld) 0.5 % Normal [facility] [employer], [facility].; [employer], [employer] Eosinophils (Bld) [#/Vol] 0.081 10*3/uL Normal 15 - 500 {cells/uL} [facility].; [facility] Eosinophils/100 WBC (Bld) 1.0 % Normal [facility].; [facility], [facility] Erythrocyte distribution width (RBC) [Ratio] 11.8 % Normal 11.0 - 15.0 % [facility], [facility].; [facility], [facility] Hematocrit (Bld) [Volume fraction] 37.3 % Normal 35.0 - 45.0 % [facility].; [facility], [facility] Hemoglobin (Bld) [Mass/Vol] 12.6 g/dL Normal 11.7 - 15.5 g/dL [facility].; [facility], [facility] Lymphocytes (Bld) [#/Vol] 1.742 10*3/uL Normal 850 - 3900 {cells/uL} [facility], [facility].; [facility], [facility] Lymphocytes/100 WBC (Bld) 21.5 % Normal [facility].; [employer], [facility]. MCH (RBC) [Entitic mass] 30.7 pg Normal 27.0 - 33.0 pg [facility].; [employer] [facility], [facility]. MCHC (RBC) [Mass/Vol] 33.8 g/dL Normal 32.0 - 36.0 g/dL [facility], [facility].; [employer] [facility], [facility]. MCV (RBC) [Entitic vol] 91.0 fL Normal 80.0 - 100.0 fL [facility].; [facility], [facility]. Monocytes (Bld) [#/Vol] 0.786 10*3/uL Normal 200 - 950 {cells/uL} [facility], [facility].; [employer], [facility]. Monocytes/100 WBC (Bld) 9.7 % Normal [facility].; [facility], [facility]. Neutrophils (Bld) [#/Vol] 5.451 10*3/uL Normal 1500 - 7800 {cells/uL} [facility], [facility].; [employer], [facility]. Neutrophils/100 WBC (Bld) 67.3 % Normal [facility].; [employer]. Platelet mean volume (Bld) [Entitic vol] 10.3 fL Normal 7.5 - 12.5 fL [facility].; [employer]. Platelets (Bld) [#/Vol] 301 10*3/uL Normal 140 - 400 [employer].; [employer]. RBC (Bld) [#/Vol] 4.10 10*6/uL Normal 3.80 - 5.1 0 {Million/uL} [employer].; [employer]. WBC (Bld) [#/Vol] 8.1 10*3/uL Normal 3.8 - 10.8 [employer].; [employer]. No Panel Informationon 06-13 BUN/CREATININE RATIO NOT APPLICABLE Normal [employer]; [employer] eGFR NON-AFR. SRI LANKAN 117 Normal [employer].; [employer]. Laboratory - Urinalysison Glucose Test strip (U) [Mass/Vol] Negative Normal [employer].; [employer]. Protein Ql (U) Negative Normal [facility].; [employer]. Laboratory - Urinalysison Glucose Test strip (U) [Mass/Vol] Negative Normal [employer].; [employer]. Protein Ql (U) Negative Normal [facility].; [employer]. Laboratory - Microbiology an d Antimicrobial susceptibilityon 08-14-2015 S. agalactiae Org specific cx Ql (Vag fld) CULTURE VAGINAL GROUP B Normal [facility].; [employer]. Laboratory - Urinalysison Glucose Test strip (U) [Mass/Vol] Negative Normal [employer].; [employer]. Protein Ql (U) Negative Normal [facility].; [facility]. Laboratory - Urinalysison Glucose Test strip (U) [Mass/Vol] Negative Normal [employer].; [employer]. Protein Ql (U) Negative Normal [facility] [employer].; [employer], [employer]. Laboratory - Urinalysison Glucose Test strip (U) [Mass/Vol] Negative Normal [employer].; [employer], [employer] Protein Ql (U) Negative Normal [facility].; [employer], [employer] Laboratory - Urinalysison Glucose Test strip (U) [Mass/Vol] Negative Normal [employer].; [employer], [employer]. Protein Ql (U) Negative Normal [facility].; [employer], [employer]. Laboratory - Chemistry and C hemistry - challengeon 06-12-2015 Glucose 3 Hr post 100 g glucose PO [Moles/Vol] GLUCOSE TOLERANCE-3 HOUR Normal [employer].; [employer]. Laboratory - Chemistry and C hemistry - challengeon 06-05-2015 Glucose 1 Hr post 50 g glucose PO [Moles/Vol] GLUCOSE CHALLENGE 50GM 1 HOUR Normal [employer].; [employer]. Glucose [Mass/Vol] 145 mg/dL Abnormal 70 - 140 mg/dL [facility] [employer].; [employer], [employer]. Laboratory - Hematology and Cell countson 06-05-2015 Hemoglobin (Bld) [Mass/Vol] 11.0 g/dL Abnormal 12.0 - 16.0 g/dL [employer].; [employer], [employer]. Laboratory - Urinalysison Glucose Test strip (U) [Mass/Vol] Negative Normal [employer].; [employer]. Protein Ql (U) Negative Normal [facility] [employer].; [employer], [employer]. Laboratory - Urinalysison Glucose Test strip (U) [Mass/Vol] Negative Normal [employer].; [employer], [employer] Protein Ql (U) Negative Normal [facility] [employer].; [employer], [employer] Laboratory - Urinalysison Glucose Test strip (U) [Mass/Vol] Negative Normal [employer].; [employer]. Protein Ql (U) Negative Normal [facility].; [employer]. Laboratory - Urinalysison Glucose Test strip (U) [Mass/Vol] Negative Normal [facility] [employer].; [employer]. Protein Ql (U) Negative Normal [facility].; [employer]. Laboratory - Blood bankon ABO group Nom (Bld) O Normal [facility].; [employer]. Blood group antibody screen Ql Negative Normal [employer].; [employer]. Laboratory - Chemistry and C hemistry - challengeon 02-15-2015 Bilirubin Ql (U) Negative Normal [facility].; [employer]. Ketones Ql (U) Negative Normal [facility].; [employer]. pH (U) 6.0 [pH] Normal [employer].; [employer]. Specific gravity (U) [Rel density] 1.025 Normal [employer].; [employer]. TSH Qn 0.48 m[IU]/L Normal 0.40 - 4.50 {mIU/L} [employer].; [employer]. Urobilinogen Qn (U) 0.2 mg/dL Normal [facility].; [employer]. Laboratory - Hematology and Cell countson 02-15-2015 Basophils (Bld) [#/Vol] 20 {Cells}/uL Normal 0 - 200 {Cells}/uL [employer].; [employer]. Basophils/100 WBC (Bld) 0 % Normal 0 - 1 % [employer].; [employer]. Eosinophils (Bld) [#/Vol] 100 {Cells}/uL Normal 15 - 500 {Cells}/uL [employer].; [employer]. Eosinophils/100 WBC (Bld) 1 % Normal 0 - 4 % [employer].; [employer]. Erythrocyte distribution width (RBC) [Ratio] 12.9 % Normal 11.0 - 15.0 % [facility].; [facility], [facility] Hematocrit (Bld) [Volume fraction] 38.9 % Normal 35.0 - 45.0 % [facility].; [facility], [facility] Hemoglobin (Bld) [Mass/Vol] 13.0 g/dL Normal 11.7 - 15.5 g/dL [facility].; [facility], [facility] Hemoglobin Ql (U) small Abnormal [facility].; [facility], [facility] Lymphocytes (Bld) [#/Vol] 2430 {Cells}/uL Normal 850 - 3900 {Cells}/uL [facility].; [facility], [facility] Lymphocytes/100 WBC (Bld) 17 % Normal 12 - 47 % [facility], [facility].; [facility], [facility] MCH (RBC) [Entitic mass] 31.5 pg Normal 27.0 - 33.0 PG [facility] ErN[facility].; [facility], [facility]. MCHC (RBC) [Mass/Vol] 33.5 g/dL Normal 32.0 - 36.0 g/dL [facility] ErN[facility].; [facility], [facility]. MCV (RBC) [Entitic vol] 93.9 fL Normal 80.0 - 100.0 fL [facility] ErN[facility].; [facility], [facility] Monocytes (Bld) [#/Vol] 700 {Cells}/uL Normal 200 - 950 {Cells}/uL [facility].; [facility], [facility]. Monocytes/100 WBC (Bld) 5 % Normal 4 - 12 % [facility].; [facility], [facility]. Neutrophils (Bld) [#/Vol] 61647 {Cells}/uL Abnormal 1500 - 7800 {Cells}/uL [facility].; [facility], [facility]. Neutrophils/100 WBC (Bld) 77 % Abnormal 40 - 75 % [facility].; [employer] [facility], [facility] Platelet mean volume (Bld) [Entitic vol] 8.8 fL Normal 7.5 - 11.5 fL [facility].; [facility] Platelets (Bld) [#/Vol] 271 10*3/uL Normal 140 - 400 10*3/uL [facility]; [facility] RBC (Bld) [#/Vol] 4.14 10*6/uL Normal 3.80 - 5.1 0 10*6/uL [facility].; [facility] ErEventmag.ru. WBC (Bld) [#/Vol] 13.9 10*3/uL Abnormal 3.8 - 10.8 10*3/uL [facility].; [employer] [facility] Laboratory - Microbiology an d Antimicrobial susceptibilityon 02-15-2015 HBV surface Ag IA Ql Non-Reactive Normal [facility]; [facility] Reagin Ab RPR Ql (S) Non-Reactive Normal [facility]; [employer] [facility] Rubella virus IgG Qn (S) 2.54 [IU]/mL Normal [facility]; [employer] Laboratory - Specimen inform ationon 02-15-2015 Appearance (U) clear Normal [facility] [employer]; [employer] Color (U) yellow Normal [facility]; [employer] [facility] Laboratory - Urinalysison Glucose Test strip (U) [Mass/Vol] Negative Normal [facility].; [employer] Leukocyte esterase Test strip Ql (U) trace Normal [facility].; [employer] Nitrite Ql (U) Negative Normal [facility] [employer].; [employer] Protein Ql (U) trace Normal [facility].; [employer] No Panel Informationon 02-15 RH TYPE Positive Normal [facility]; [employer] Laboratory - Microbiology an d Antimicrobial susceptibilityon 09-01-2014 S. pyogenes Ag EIA Ql (Throat) Negative Normal [facility] Er[facility].; [employer] Laboratory - Chemistry and C hemistry - challengeon 07-05-2014 Bilirubin Ql (U) Negative Normal [facility].; [employer]. Ketones Ql (U) Negative Normal [facility].; [employer]. pH (U) 5.5 [pH] Normal [facility].; [employer]. Specific gravity (U) [Rel density] 1.030 Abnormal [facility].; [employer]. Urobilinogen Qn (U) 0.2 mg/dL Normal [facility].; [employer]. Laboratory - Hematology and Cell countson 07-05-2014 Hemoglobin Ql (U) small Abnormal [facility].; [employer]. Laboratory - Specimen inform ationon 07-05-2014 Appearance (U) clear Normal [facility].; [employer]. Color (U) yellow Normal [facility] [employer] [facility].; [employer]. Laboratory - Urinalysison Glucose Test strip (U) [Mass/Vol] Negative Normal [facility]Event[facility].; [employer]. Leukocyte esterase Test strip Ql (U) Negative Normal [facility] ErEvent[facility].; [employer]. Nitrite Ql (U) Negative Normal [facility].; [employer]. Protein Ql (U) Negative Normal [facility].; [employer]. Laboratory - Blood bankon ABO group Nom (Bld) O Normal [facility].; [employer]. Work Phone: Blood group antibody screen Ql Negative Normal [facility] [employer].; [employer]. Work Phone: Blood type and Indirect antibody screen panel (Bld) Normal [employer].; [employer]. Work Phone: Rh Nom (Bld) Positive Normal [facility] [employer].; [employer]. Work Phone: Laboratory - Hematology and Cell countson 06-30-2014 Basophils (Bld) [#/Vol] 0.00 {3/UL} Normal 0.00 - 0.10 {3/UL} [facility]; [facility] Work Phone: Basophils/100 WBC (Bld) 0.8 % Normal 0.0 - 2.0 % [facility] ErN[facility]; [facility] ErEvent[facility]. Work Phone: CBC W Auto Differential panel (Bld) CBC Normal [facility] ErN[facility]; [employer] [facility]. Work Phone: Eosinophils (Bld) [#/Vol] 0.10 {3/UL} Normal 0.00 - 0.50 {3/UL} [facility]; [facility] Work Phone: Eosinophils/100 WBC (Bld) 1.9 % Normal 0.0 - 7.0 % [facility]; [employer]. Work Phone: Erythrocyte distribution width (RBC) [Ratio] 13.2 % Normal 12.0 - 15.6 % [facility]; [employer] Work Phone: Hematocrit (Bld) [Volume fraction] 37.2 % Normal 34.0 - 46.0 % [facility]; [employer] [facility] Work Phone: Hemoglobin (Bld) [Mass/Vol] 12.7 g/dL Normal 12.0 - 16.0 g/dL [facility]; [employer]. Work Phone: Lymphocytes (Bld) [#/Vol] 1.60 {3/UL} Normal 0.80 - 2.80 {3/UL} [facility].; [employer]. Work Phone: Lymphocytes/100 WBC (Bld) 27.2 % Normal 20.0 - 45.0 % [facility]; [employer] Work Phone: MCH (RBC) [Entitic mass] 32 pg Normal 27 - 33 pg [facility].; [facility] ErNuro [employer] [facility]. Work Phone: MCHC (RBC) [Mass/Vol] 34 {X10_3} Normal 32 - 3 6 {X10_3} [facility].; [facility]. Work Phone: MCV (RBC) [Entitic vol] 93 fL Normal 80 - 99 fL [facility].; [facility]. Work Phone: Monocytes (Bld) [#/Vol] 0.60 {3/UL} Normal 0.20 - 1.00 {3/UL} [facility].; [facility], [facility]. Work Phone: Monocytes/100 WBC (Bld) 9.4 % Normal 0.0 - 10.0 % [facility].; [facility], [facility]. Work Phone: Morphology Levy (Bld) [Interp] N/A Normal [facility]; [facility] [employer], [facility]. Work Phone: Neutrophils (Bld) [#/Vol] 3.60 {3/UL} Normal 1.50 - 7.10 {3/UL} [facility].; [facility], [employer]. Work Phone: Neutrophils/100 WBC (Bld) 60.7 % Normal 46.0 - 76.0 % [facility].; [facility], [employer]. Work Phone: Platelet mean volume (Bld) [Entitic vol] 7.6 fL Normal 6.6 - 10.5 fL [facility].; [employer] Work Phone: Platelets (Bld) [#/Vol] 230 {3/UL} Normal 150 - 450 {3/UL} [facility].; [facility] [employer], [employer]. Work Phone: RBC (Bld) [#/Vol] 4.02 {6/UL} Abnormal 4.10 - 5.3 0 {6/UL} [facility] [employer].; [employer]. Work Phone: WBC (Bld) [#/Vol] 5.9 {3/UL} Normal 4.5 - 10.8 {3/UL} [employer].; [employer]. Work Phone: No Panel Informationon 06-30 MANUAL DIFF N/A Normal [facility].; [employer]. Work Phone: Laboratory - Urinalysison Glucose Test strip (U) [Mass/Vol] Negative Normal [facility] [employer].; [employer]. Protein Ql (U) Negative Normal [facility].; [employer]. Laboratoryon 05-16-2014 Obstetric 1996 panel (S+Bld) OB PANEL Normal [facility].; [employer]. Laboratory - Blood bankon ABO group Nom (Bld) O Normal [facility].; [employer]. Blood group antibody screen Ql Negative Normal [facility] [employer] [facility].; [employer]. Rh Nom (Bld) Positive Normal [facility].; [employer]. Laboratory - Chemistry and C hemistry - challengeon 05-16-2014 Bilirubin Ql (U) Negative Normal [facility].; [employer]. Ketones Ql (U) Negative Normal [facility].; [employer]. pH (U) 7.0 [pH] Normal [employer].; [employer]. Specific gravity (U) [Rel density] 1.025 Normal [employer].; [employer]. TSH Qn 0.76 m[IU]/L Normal 0.34 - 5.60 {uIU/ml} [employer].; [employer]. Urobilinogen Qn (U) 0.2 mg/dL Normal [facility] SpringsEvent[facility].; [employer] [facility] Laboratory - Hematology and Cell countson 05-16-2014 Basophils (Bld) [#/Vol] 0.00 {3/UL} Normal 0.00 - 0.10 {3/UL} [facility].; [facility] Basophils/100 WBC (Bld) 0.4 % Normal 0.0 - 2.0 % [facility].; [facility] Eosinophils (Bld) [#/Vol] 0.10 {3/UL} Normal 0.00 - 0.50 {3/UL} [facility].; [employer] [facility] Eosinophils/100 WBC (Bld) 0.7 % Normal 0.0 - 7.0 % [facility].; [employer] [facility], [facility] Erythrocyte distribution width (RBC) [Ratio] 12.5 % Normal 12.0 - 15.6 % [facility].; [employer] [facility] Hematocrit (Bld) [Volume fraction] 37.8 % Normal 34.0 - 46.0 % [employer] [facility].; [employer] [facility] Hemoglobin (Bld) [Mass/Vol] 13.0 g/dL Normal 12.0 - 16.0 g/dL [employer] [facility].; [employer], [facility] Hemoglobin Ql (U) trace, hemolyzed Abnormal H [facility].; [employer] [facility], [facility] Lymphocytes (Bld) [#/Vol] 2.10 {3/UL} Normal 0.80 - 2.80 {3/UL} [employer] [facility].; [employer] [facility] Lymphocytes/100 WBC (Bld) 19.4 % Abnormal 20.0 - 45.0 % [employer] [facility].; [employer], [facility] MCH (RBC) [Entitic mass] 31 pg Normal 27 - 33 pg [employer] [facility].; [employer] [facility], [facility]. MCHC (RBC) [Mass/Vol] 34 {X10_3} Normal 32 - 3 6 {X10_3} [facility].; [employer], [facility]. MCV (RBC) [Entitic vol] 91 fL Normal 80 - 99 fL [facility].; [employer], [employer]. Monocytes (Bld) [#/Vol] 0.90 {3/UL} Normal 0.20 - 1.00 {3/UL} [employer], [employer].; [employer], [employer]. Monocytes/100 WBC (Bld) 8.7 % Normal 0.0 - 10.0 % [facility] [employer], [employer].; [employer], [employer]. Morphology Levy (Bld) [Interp] N/A Normal [facility] [employer] [facility].; [employer] Neutrophils (Bld) [#/Vol] 7.60 {3/UL} Abnormal 1.50 - 7.10 {3/UL} [employer], [employer].; [employer] Neutrophils/100 WBC (Bld) 70.8 % Normal 46.0 - 76.0 % [facility] [employer], [employer].; [employer] Platelet mean volume (Bld) [Entitic vol] 8.6 fL Normal 6.6 - 10.5 fL [facility] [employer].; [employer] Platelets (Bld) [#/Vol] 276 {3/UL} Normal 150 - 450 {3/UL} [employer].; [employer] RBC (Bld) [#/Vol] 4.16 {6/UL} Normal 4.10 - 5.3 0 {6/UL} [employer], [employer].; [employer] WBC (Bld) [#/Vol] 10.7 {3/UL} Normal 4.5 - 10.8 {3/UL} [employer].; [employer] Laboratory - Specimen inform ationon 05-16-2014 Appearance (U) clear Normal [facility] [employer].; [employer], [employer]. Color (U) yellow Normal [employer].; [employer], [employer]. Laboratory - Urinalysison Glucose Test strip (U) [Mass/Vol] Negative Normal [employer].; [employer] Leukocyte esterase Test strip Ql (U) Negative Normal [employer].; [facility] [place], [facility]. Nitrite Ql (U) Negative Normal [facility].; [employer]. Protein Ql (U) Negative Normal [facility].; [employer]. No Panel Informationon 05-16 MANUAL DIFF N/A Normal [facility].; [employer]. RDW/SD 38.9 fL Normal 36.0 - 50.0 fL [facility].; [employer]. Laboratory - Hematology and Cell countson 04-27-2013 Hemoglobin (Bld) [Mass/Vol] 13.1 g/dL Normal 11.5 - 14.2 g/dL [facility].; [employer]. Laboratory - Cytologyon 10-25 Microscopic observation Cyto stain Nom (Cvx) SEE NOTE Normal [facility].; [employer]. Laboratory - Microbiology an d Antimicrobial susceptibilityon 01-09-2011 S. pyogenes Ag EIA Ql (Throat) Negative Normal [facility].; [employer]. No Panel Informationon 01-09 MONOSPOT TEST (IN HOUSE) Negative Normal [facility].; [employer]. Laboratory - Cytologyon Microscopic observation Cyto stain Nom (Cvx) SEE NOTE Normal [facility].; [employer]. Laboratory - Microbiology an d Antimicrobial susceptibilityon 11-01-2010 C. trachomatis DNA STACI+probe Ql (Unsp spec) Not detected Normal [facility].; [employer]. N. gonorrhoeae DNA STACI+probe Ql (Unsp spec) Not detected Normal [facility].; [employer]. Laboratory - Specimen inform ationon 11-01-2010 Specimen source Nom (Unsp spec) GENITAL-CX Normal [facility]; [employer] Vital Signs Date Time Vital Sign Value Performing Clinician Facility 12-30-2024 07:54-0400 Body height 170.[address] Jim Thornton MD Work Phone: [facility] 12-30-2024 07:54-0400 Body temperature 98 [degF] Dr. Jim Thornton MD Work Phone: 2([phone])[phone] [place] [address] 12-30-2024 07:54-0400 Diastolic blood pressure 76 mm[Hg] Dr. Jim Thornton MD Work Phone: 6(669)685-890596 [address] 12-30-2024 07:54-0400 Heart rate 61 /min Dr. Jim Thornton MD Work Phone: 6(955)813-375996 [address] 12-30-2024 07:54-0400 Respiratory rate 18 /min Dr. Jim Thornton MD Work Phone: 6(555)[phone] [place] [address] 12-30-2024 07:54-0400 SaO2% (BldA) [Mass fraction] 97 % Dr. Jim Thornton MD Work Phone: 4(077)529-451837 [place] [address] 12-30-2024 07:54-0400 Systolic blood pressure 120 mm[Hg] Dr. Jim Thornton MD Work Phone: 4(679)918-667937 [place] [address] 12-03-2024 19:27-0400 Body temperature 98.6 [degF] Dr. Jim Thornton MD Work Phone: 1(157)427-589737 [place] [address] 12-03-2024 19:27-0400 Diastolic blood pressure 67 mm[Hg] Dr. Jim Thornton MD Work Phone: 2(806)246-021096 [address] 12-03-2024 19:27-0400 Heart rate 74 /min Dr. Jim Thornton MD Work Phone: 8(831)584-237396 [address] 12-03-2024 19:27-0400 Respiratory rate 18 /min Dr. Jim Thornton MD Work Phone: 9(702)142-050196 [address] 12-03-2024 19:27-0400 SaO2% (BldA) [Mass fraction] 100 % Dr. Jim Thornton MD Work Phone: 2(957)781-778537 [place] [address] 12-03-2024 19:27-0400 Systolic blood pressure 112 mm[Hg] Dr. Jim Thornton MD Work Phone: 0(647)400-815837 [place] [address] 12-03-2024 17:15-0400 Body height 170.[address] Jim Thornton MD Work Phone: [facility] 12-03-2024 17:15-0400 Body mass index (BMI) [Ratio] 26.6 kg/m2 Dr. Jim Thornton MD Work Phone: [facility] 12-03-2024 17:15-0400 Body weight 77.[address] Jim Thornton MD Work Phone: [facility] 12-03-2024 09:55-0400 Body height 167.64 cm Gabriella Duvall MA [facility], [facility].; [facility], [facility]. 12-03-2024 09:55-0400 Body mass index (BMI) [Ratio] 24.37 kg/m2 Gabriella Duvall MA [facility], [facility].; [facility], [facility]. 12-03-2024 09:55-0400 Body surface area Derived from formula 1.78 m2 Gabriella Duvall MA [facility], [facility].; [facility], [facility]. 12-03-2024 09:55-0400 Body weight 68.49 kg Gabriella Duvall MA [facility], [facility].; [facility], [facility]. 12-03-2024 09:55-0400 Diastolic blood pressure 80 mm[Hg] Gabriella Duvall MA [facility].; [facility], [employer] Comment on above: Patient Position: Sitting; Cuff Location : Left Arm; Cuff Size: Standard 12-03-2024 09:55-0400 Heart rate 60 /min Gabriella Duvall MA [facility], [facility].; [facility], [employer] Comment on above: Pattern: Regular 12-03-2024 09:55-0400 Systolic blood pressure 114 mm[Hg] Gabriella Duvall MA [facility], [facility].; [facility], [facility]. Comment on above: Patient Position: Sitting; Cuff Location : Left Arm; Cuff Size: Standard 11-29-2024 08:58-0400 Body height 167.64 cm Myriam CONTE [facility], [facility].; [facility], [employer] 11-29-2024 08:58-0400 Body mass index (BMI) [Ratio] 25.18 kg/m2 [facility]riam Key [facility], [facility].; [facility], [facility] 11-29-2024 08:58-0400 Body surface area Derived from formula 1.8 m2 Myriam Key [facility], Inc.; [facility], [facility] 11-29-2024 08:58-0400 Body temperature 98.6 [degF] Myriam Key [facility], Inc.; [facility], [employer] Comment on above: Method: Tympanic 11-29-2024 08:58-0400 Body weight 70.76 kg Myriam Key [facility], Inc.; [facility], [facility]. 11-29-2024 08:58-0400 Diastolic blood pressure 77 mm[Hg] Myriam Key [facility], Inc.; [employer] [facility], Inc. Comment on above: Patient Position: Sitting; Cuff Location : Left Arm; Cuff Size: Standard 11-29-2024 08:58-0400 Heart rate 66 /min Myriam Key [facility], Inc.; [employer] [facility], Inc. Comment on above: Pattern: Regular 11-29-2024 08:58-0400 Systolic blood pressure 119 mm[Hg] Myriam Key [facility], [facility].; [employer] [facility], Inc. Comment on above: Patient Position: Sitting; Cuff Location : Left Arm; Cuff Size: Standard 03-05-2024 09:07-0400 Body height 167.64 cm Bebe Manley MA [facility], [facility].; [facility], [facility]. 03-05-2024 09:07-0400 Body mass index (BMI) [Ratio] 23.56 kg/m2 Bebe Manley MA [facility], [facility].; [facility] [employer] 03-05-2024 09:07-0400 Body surface area Derived from formula 1.75 m2 Bebe Manley MA [facility], [facility].; [facility], [facility]. 03-05-2024 09:07-0400 Body weight 66.23 kg Bebe Manley MA [facility], [facility].; [facility], [facility]. 03-05-2024 09:07-0400 Diastolic blood pressure 67 mm[Hg] Bebe Manley MA [facility] [employer] [facility].; [facility]. Comment on above: Patient Position: Sitting; Cuff Location : Left Arm; Cuff Size: Standard 03-05-2024 09:07-0400 Heart rate 56 /min Bebe Manley MA [facility] Er[facility].; [facility]Event[facility]. Comment on above: Pattern: Regular 03-05-2024 09:07-0400 Systolic blood pressure 102 mm[Hg] Bebe Manley MA [facility].; [facility]. Comment on above: Patient Position: Sitting; Cuff Location : Left Arm; Cuff Size: Standard 07-05-2023 09:23-0500 Body temperature 100.8 [degF] Delmar Leggett APRN.ENGINEERING OPERATOR Work Phone: [facility] 07-05-2023 09:23-0500 Body weight 62.87 kg Delmar Leggett APRN.ENGINEERING OPERATOR Work Phone: [facility] 07-05-2023 09:23-0500 Diastolic blood pressure 70 mm[Hg] Delmar Leggett APRN.ENGINEERING OPERATOR Work Phone: [facility] 07-05-2023 09:23-0500 Heart rate 113 /min Delmar Leggett APRN.ENGINEERING OPERATOR Work Phone: [facility] 07-05-2023 09:23-0500 Respiratory rate 21 /min Delmar Leggett APRN.ENGINEERING OPERATOR Work Phone: [facility] 07-05-2023 09:23-0500 SaO2% (BldA) [Mass fraction] 97 % Delmar Leggett APRN.ENGINEERING OPERATOR Work Phone: [facility] 07-05-2023 09:23-0500 Systolic blood pressure 112 mm[Hg] Delmar Leggett APRN.ENGINEERING OPERATOR Work Phone: [facility] 01-29-2023 13:03-0400 Body height 167.64 cm Gabriella Duvall MA [facility].; [facility]. 01-29-2023 13:03-0400 Body mass index (BMI) [Ratio] 23.08 kg/m2 Gabriella Duvall MA [facility].; [facility], [facility]. 01-29-2023 13:03-0400 Body surface area Derived from formula 1.73 m2 Gabriella Duvall MA [facility] ErN[facility].; [facility], [employer] 01-29-2023 13:03-0400 Body weight 64.86 kg Gabriella Duvall MA [facility] ErN[facility].; [facility], [facility]. 01-29-2023 13:03-0400 Diastolic blood pressure 73 mm[Hg] Gabriella Duvall MA [facility].; [employer] [facility], [employer]. Comment on above: Patient Position: Sitting; Cuff Location : Left Arm; Cuff Size: Standard 01-29-2023 13:03-0400 Heart rate 66 /min Gabriella Duvall MA [facility] ErN[facility].; [employer] [facility]. Comment on above: Pattern: Regular 01-29-2023 13:03-0400 Systolic blood pressure 114 mm[Hg] Gabriella Duvall MA [facility].; [employer] [facility]. Comment on above: Patient Position: Sitting; Cuff Location : Left Arm; Cuff Size: Standard 11-11-2022 14:39-0400 Body height 167.64 cm Ericka Kovacs RN [facility].; [employer] [facility]. 11-11-2022 14:39-0400 Body mass index (BMI) [Ratio] 22.92 kg/m2 Ericka Kovacs RN [facility].; [employer] [facility]. 11-11-2022 14:39-0400 Body surface area Derived from formula 1.73 m2 Ericka Kovacs RN [employer] [facility].; [employer] [facility]. 11-11-2022 14:39-0400 Body temperature 99.4 [degF] Ericka Kovacs RN [facility].; [employer]. Comment on above: Method: Tympanic 11-11-2022 14:39-0400 Body weight 64.41 kg Ericka Kovacs RN [facility] ErEvent[facility].; [facility]. 11-11-2022 14:39-0400 Diastolic blood pressure 63 mm[Hg] Ericka Kovacs RN [facility].; [facility] [facility]. Comment on above: Patient Position: Sitting; Cuff Location : Left Arm; Cuff Size: Standard 11-11-2022 14:39-0400 Heart rate 66 /min Ericka Kovacs RN [facility].; [facility] [employer]. Comment on above: Pattern: Regular 11-11-2022 14:39-0400 Systolic blood pressure 100 mm[Hg] Ericka Kovacs RN [facility].; [facility] ErEvent[facility]. Comment on above: Patient Position: Sitting; Cuff Location : Left Arm; Cuff Size: Standard 10-22-2022 08:43-0400 Body height 167.64 cm Bebe Manley MA [facility] ErN[facility].; [facility] [facility]. 10-22-2022 08:43-0400 Body mass index (BMI) [Ratio] 23.24 kg/m2 Bebe Manley MA [facility].; [facility], [facility]. 10-22-2022 08:43-0400 Body surface area Derived from formula 1.74 m2 Bebe Manley MA [facility] ErN[facility].; [facility]. 10-22-2022 08:43-0400 Body temperature 98.5 [degF] Bebe Manley MA [facility].; [employer]. Comment on above: Method: Tympanic 10-22-2022 08:43-0400 Body weight 65.32 kg Bebe Manley MA [facility] Er[facility].; [facility]. 10-22-2022 08:43-0400 Diastolic blood pressure 72 mm[Hg] Bebe Manley MA [facility] ErN[facility].; [employer]. Comment on above: Patient Position: Sitting; Cuff Location : Left Arm; Cuff Size: Standard 10-22-2022 08:43-0400 Heart rate 66 /min Bebe Manley MA [facility] ErN[facility].; [employer]. Comment on above: Pattern: Regular 10-22-2022 08:43-0400 Inhaled oxygen concentration 21 % Bebe Manley MA [facility], [facility].; [employer] [facility]. Comment on above: Room air 10-22-2022 08:43-0400 SaO2% (BldA) [Mass fraction] 99 % Bebe Manley MA [facility], Inc.; [employer] 10-22-2022 08:43-0400 Systolic blood pressure 112 mm[Hg] Bebe Manley MA [facility], [facility].; [employer]. Comment on above: Patient Position: Sitting; Cuff Location : Left Arm; Cuff Size: Standard 06-13-2021 09:19-0500 Body height 167.64 cm Adriana Omalley LPN [facility], [facility].; [facility], [facility]. 06-13-2021 09:19-0500 Body mass index (BMI) [Ratio] 25.34 kg/m2 Adriana Omalley LPN [facility], [facility].; [employer] [facility], [facility]. 06-13-2021 09:19-0500 Body surface area Derived from formula 1.8 m2 Adriana Omalley LPN [facility], [facility].; [employer] [facility], [employer]. 06-13-2021 09:19-0500 Body temperature 99.2 [degF] Adriana Omalley LPN [facility], [facility].; [employer]. Comment on above: Method: Tympanic 06-13-2021 09:190500 Body weight 71.22 kg Adriana Omalley LPN [facility], [facility].; [employer]. 06-13-2021 09:19-0500 Diastolic blood pressure 72 mm[Hg] Adriana Omalley LPN [facility] ErN[facility].; [employer]. Comment on above: Patient Position: Sitting; Cuff Location : Left Arm; Cuff Size: Standard 06-13-2021 09:19-0500 Heart rate 71 /min Adriana Omalley LPN [facility], [facility].; [employer]. Comment on above: Pattern: Regular 06-13-2021 09:19-0500 Inhaled oxygen concentration 21 % Adriana Omalley LPN [facility], [facility].; [employer]andezIntelcl[employer] [facility], [employer]. Comment on above: Room air 06-13-2021 09:19-0500 SaO2% (BldA) [Mass fraction] 100 % Adriana Omalley LPN [facility], [facility].; [facility], [facility]. 06-13-2021 09:19-0500 Systolic blood pressure 114 mm[Hg] Adriana Omalley LPN [facility], [facility].; [employer] [facility], [employer]. Comment on above: Patient Position: Sitting; Cuff Location : Left Arm; Cuff Size: Standard 06-28-2019 13:24-0500 Body height 167.64 cm Ragini Codylynn COLD ROLLING SUPERVISOR [facility], [facility].; [facility], [facility]. 06-28-2019 13:24-0500 Body mass index (BMI) [Ratio] 24.37 kg/m2 Ragini Codylynn [employer] SUPERVISOR [facility], [facility].; [facility], [employer]. 06-28-2019 13:24-0500 Body surface area Derived from formula 1.78 m2 Raginijudie Codylynn COLD ROLLING SUPERVISOR [facility], [facility].; [facility], [facility]. 06-28-2019 13:24-0500 Body temperature 102 [degF] Raginijudie Codylynn [facility], [facility].; [facility] [employer], [employer]. Comment on above: Method: Tympanic 06-28-2019 13:24-0500 Body weight 68.49 kg Ragini Codylynn GANNON [facility], [employer] 06-28-2019 13:24-0500 Diastolic blood pressure 64 mm[Hg] Ragini Codylynn GANNON [facility], [facility].; [employer], [employer]. Comment on above: Patient Position: Sitting; Cuff Location : Left Arm; Cuff Size: Standard 06-28-2019 13:24-0500 Heart rate 122 /min Ragini Codylynn C[employer] ROLLING SUPERVISOR [facility], [facility].; [employer], [employer]. Comment on above: Pattern: Regular 06-28-2019 13:24-0500 Inhaled oxygen concentration 21 % Raginijudie Codylynn [employer] ROLLING SUPERVISOR [facility], [facility].; [employer], [employer]. Comment on above: Room air 06-28-2019 13:24-0500 SaO2% (BldA) [Mass fraction] 97 % Ragini Chauhan [facility]. 06-28-2019 13:24-0500 Systolic blood pressure 104 mm[Hg] Ragini Chauhan COLD ROLLING SUPERVISOR [facility] [employer].; [employer]. Comment on above: Patient Position: Sitting; Cuff Location : Left Arm; Cuff Size: Standard 11-03-2017 14:35-0400 Body height 167.64 cm Erika Nair COLD ROLLING SUPERVISOR Work Phone: [employer] [facility]. 11-03-2017 14:35-0400 Body mass index (BMI) [Ratio] 26.47 kg/m2 Erika Joanie COLD ROLLING SUPERVISOR Work Phone: [employer].; [facility]. 11-03-2017 14:35-0400 Body surface area Derived from formula 1.84 m2 Erika Joanie COLD ROLLING SUPERVISOR Work Phone: [employer].; [facility]. 11-03-2017 14:35-0400 Body temperature 99.2 [degF] Erika Nair COLD ROLLING SUPERVISOR Work Phone: [employer].; [facility]. Comment on above: Method: Tympanic 11-03-2017 14:35-0400 Body weight 74.39 kg Erika Nair COLD ROLLING SUPERVISOR Work Phone: [employer].; [facility]. 11-03-2017 14:35-0400 Diastolic blood pressure 73 mm[Hg] Erika Nair COLD ROLLING SUPERVISOR Work Phone: [employer].; [facility]. Comment on above: Patient Position: Sitting; Cuff Location : Left Arm; Cuff Size: Standard 11-03-2017 14:35-0400 Heart rate 82 /min Erika Nair COLD ROLLING SUPERVISOR Work Phone: [facility].; [facility]. Comment on above: Pattern: Regular 11-03-2017 14:35-0400 Systolic blood pressure 118 mm[Hg] Erika Nair LPN Work Phone: [facility]. Comment on above: Patient Position: Sitting; Cuff Location : Left Arm; Cuff Size: Standard 08-26-2017 14:55-0400 Body height 167.64 cm Esperanza Smith LPN [facility], [facility] [employer] 08-26-2017 14:55-0400 Body mass index (BMI) [Ratio] 25.02 kg/m2 Esperanza Smith [facility], [facility].; [employer] 08-26-2017 14:55-0400 Body surface area Derived from formula 1.79 m2 Esperanza Smith [facility], [facility].; [employer], [employer]. 08-26-2017 14:55-0400 Body temperature 100.2 [degF] Esperanza Smith [facility], [facility] [employer], [employer]. Comment on above: Method: Tympanic 08-26-2017 14:55-0400 Body weight 70.31 kg Esperanza Smith [facility], [facility] [employer] 08-26-2017 14:55-0400 Diastolic blood pressure 79 mm[Hg] Esperanza Smith LPN [facility] [employer] Comment on above: Patient Position: Sitting; Cuff Location : Left Arm; Cuff Size: Large 08-26-2017 14:55-0400 Heart rate 94 /min Esperanza Smith [facility], [facility] [employer], [employer]. Comment on above: Pattern: Regular 08-26-2017 14:55-0400 Systolic blood pressure 118 mm[Hg] Esperanza Smith [facility], [facility] [employer], [employer]. Comment on above: Patient Position: Sitting; Cuff Location : Left Arm; Cuff Size: Large 08-28-2015 09:43-0400 Body weight 74.84 kg Erika Nair LPN Work Phone: [facility], [employer].; [employer]. 08-28-2015 09:43-0400 Diastolic blood pressure 71 mm[Hg] Erika Joanie COLD ROLLING SUPERVISOR Work Phone: [employer].; [employer]. Comment on above: Patient Position: Sitting; Cuff Location : Left Arm; Cuff Size: Standard 08-28-2015 09:43-0400 Heart rate 67 /min Erika Joanie COLD ROLLING SUPERVISOR Work Phone: [facility].; [facility]. Comment on above: Pattern: Regular 08-28-2015 09:43-0400 Systolic blood pressure 121 mm[Hg] Erika Joanie COLD ROLLING SUPERVISOR Work Phone: [facility].; [facility]. Comment on above: Patient Position: Sitting; Cuff Location : Left Arm; Cuff Size: Standard 08-23-2015 16:01-0400 Body weight 76.2 kg Erika Joanie COLD ROLLING SUPERVISOR Work Phone: [facility].; [facility]. 08-23-2015 16:01-0400 Diastolic blood pressure 71 mm[Hg] Erika Joanie COLD ROLLING SUPERVISOR Work Phone: [facility].; [facility]. Comment on above: Patient Position: Sitting; Cuff Location : Left Arm; Cuff Size: Standard 08-23-2015 16:01-0400 Heart rate 76 /min Erika Joanie COLD ROLLING SUPERVISOR Work Phone: [facility].; [facility]. Comment on above: Pattern: Regular 08-23-2015 16:01-0400 Systolic blood pressure 124 mm[Hg] Erika Joanie COLD ROLLING SUPERVISOR Work Phone: [facility].; [facility]. Comment on above: Patient Position: Sitting; Cuff Location : Left Arm; Cuff Size: Standard 08-14-2015 16:12-0400 Body weight 74.84 kg Erika Joanie COLD ROLLING SUPERVISOR Work Phone: [facility].; [facility]. 08-14-2015 16:12-0400 Diastolic blood pressure 72 mm[Hg] Erika Joanie COLD ROLLING SUPERVISOR Work Phone: [facility].; [facility]. Comment on above: Patient Position: Sitting; Cuff Location : Left Arm; Cuff Size: Standard 08-14-2015 16:12-0400 Heart rate 83 /min Erika Joanie COLD ROLLING SUPERVISOR Work Phone: [facility].; [facility]. Comment on above: Pattern: Regular 08-14-2015 16:12-0400 Systolic blood pressure 127 mm[Hg] Erika Joanie COLD ROLLING SUPERVISOR Work Phone: [facility].; [facility]. Comment on above: Patient Position: Sitting; Cuff Location : Left Arm; Cuff Size: Standard 07-26-2015 16:16-0500 Body weight 75.3 kg Erika Joanie COLD ROLLING SUPERVISOR Work Phone: [facility].; [employer] 07-26-2015 16:16-0500 Diastolic blood pressure 72 mm[Hg] Erika Joanie COLD ROLLING SUPERVISOR Work Phone: [facility].; [facility]. Comment on above: Patient Position: Sitting; Cuff Location : Left Arm; Cuff Size: Standard 07-26-2015 16:16-0500 Heart rate 80 /min Erika Joanie COLD ROLLING SUPERVISOR Work Phone: [facility].; [facility]. Comment on above: Pattern: Regular 07-26-2015 16:16-0500 Systolic blood pressure 126 mm[Hg] Erika Joanie COLD ROLLING SUPERVISOR Work Phone: [facility].; [facility]. Comment on above: Patient Position: Sitting; Cuff Location : Left Arm; Cuff Size: Standard 07-03-2015 16:42-0500 Body weight 73.03 kg Erika Joanie COLD ROLLING SUPERVISOR Work Phone: [facility].; [employer] 07-03-2015 16:42-0500 Diastolic blood pressure 67 mm[Hg] Erika Joanie COLD ROLLING SUPERVISOR Work Phone: [facility].; [facility]. Comment on above: Patient Position: Sitting; Cuff Location : Left Arm; Cuff Size: Standard 07-03-2015 16:42-0500 Heart rate 87 /min Erika Wigginsy COLD ROLLING SUPERVISOR Work Phone: [facility].; [facility]. Comment on above: Pattern: Regular 07-03-2015 16:42-0500 Systolic blood pressure 121 mm[Hg] Erika Wigginsy COLD ROLLING SUPERVISOR Work Phone: [facility].; [facility]. Comment on above: Patient Position: Sitting; Cuff Location : Left Arm; Cuff Size: Standard 06-05-2015 16:37-0500 Body weight 72.58 kg Erika Wigginsy COLD ROLLING SUPERVISOR Work Phone: [facility].; [facility]. 06-05-2015 16:37-0500 Diastolic blood pressure 73 mm[Hg] Erika Wigginsy COLD ROLLING SUPERVISOR Work Phone: [facility].; [facility]. Comment on above: Patient Position: Sitting; Cuff Location : Left Arm; Cuff Size: Standard 06-05-2015 16:37-0500 Heart rate 88 /min Erika Wigginsy COLD ROLLING SUPERVISOR Work Phone: [facility].; [facility]. Comment on above: Pattern: Regular 06-05-2015 16:37-0500 Systolic blood pressure 119 mm[Hg] Erika Wigginsy COLD ROLLING SUPERVISOR Work Phone: [facility].; [facility]. Comment on above: Patient Position: Sitting; Cuff Location : Left Arm; Cuff Size: Standard 05-08-2015 16:03-0500 Body weight 71.67 kg Erika Wigginsy COLD ROLLING SUPERVISOR Work Phone: [facility].; [facility]. 05-08-2015 16:03-0500 Diastolic blood pressure 69 mm[Hg] Erika Joanie COLD ROLLING SUPERVISOR Work Phone: [facility].; [facility]. Comment on above: Patient Position: Sitting; Cuff Location : Left Arm; Cuff Size: Standard 05-08-2015 16:03-0500 Heart rate 77 /min Erika Joanie COLD ROLLING SUPERVISOR Work Phone: [employer].; [employer]. Comment on above: Pattern: Regular 05-08-2015 16:03-0500 Systolic blood pressure 120 mm[Hg] Erika Joanie COLD ROLLING SUPERVISOR Work Phone: [employer].; [employer]. Comment on above: Patient Position: Sitting; Cuff Location : Left Arm; Cuff Size: Standard 04-12-2015 16:23-0500 Body weight 69.4 kg Erika Joanie COLD ROLLING SUPERVISOR Work Phone: [employer].; [employer]. 04-12-2015 16:23-0500 Diastolic blood pressure 62 mm[Hg] Erika Joanie COLD ROLLING SUPERVISOR Work Phone: [employer].; [employer]. Comment on above: Patient Position: Sitting; Cuff Location : Left Arm; Cuff Size: Standard 04-12-2015 16:23-0500 Heart rate 76 /min Erika Joanie COLD ROLLING SUPERVISOR Work Phone: [employer].; [employer]. Comment on above: Pattern: Regular 04-12-2015 16:23-0500 Systolic blood pressure 118 mm[Hg] Erika Joanie COLD ROLLING SUPERVISOR Work Phone: [employer].; [facility]. Comment on above: Patient Position: Sitting; Cuff Location : Left Arm; Cuff Size: Standard 03-15-2015 16:12-0400 Body weight 68.95 kg Erika Joanie COLD ROLLING SUPERVISOR Work Phone: [employer].; [employer]. 03-15-2015 16:12-0400 Diastolic blood pressure 67 mm[Hg] Erika Joanie COLD ROLLING SUPERVISOR Work Phone: [employer].; [facility]. Comment on above: Patient Position: Sitting; Cuff Location : Left Arm; Cuff Size: Standard 03-15-2015 16:12-0400 Heart rate 92 /min Erika Joanie COLD ROLLING SUPERVISOR Work Phone: [employer].; [facility]. Comment on above: Pattern: Regular 03-15-2015 16:12-0400 Systolic blood pressure 126 mm[Hg] Erika Joanie COLD ROLLING SUPERVISOR Work Phone: [employer].; [facility]. Comment on above: Patient Position: Sitting; Cuff Location : Left Arm; Cuff Size: Standard 02-15-2015 15:21-0400 Body height 165.1 cm Erika Joanie COLD ROLLING SUPERVISOR Work Phone: [employer].; [facility]. 02-15-2015 15:21-0400 Body mass index (BMI) [Ratio] 24.3 kg/m2 Erika Joanie COLD ROLLING SUPERVISOR Work Phone: [employer].; [facility]. 02-15-2015 15:21-0400 Body surface area Derived from formula 1.73 m2 Erika Joanie COLD ROLLING SUPERVISOR Work Phone: [employer].; [facility]. 02-15-2015 15:21-0400 Body weight 66.23 kg Erika Joanie COLD ROLLING SUPERVISOR Work Phone: [employer].; [facility]. 02-15-2015 15:21-0400 Diastolic blood pressure 84 mm[Hg] Erika Joanie COLD ROLLING SUPERVISOR Work Phone: [employer].; [facility]. Comment on above: Patient Position: Sitting; Cuff Location : Left Arm; Cuff Size: Standard 02-15-2015 15:21-0400 Heart rate 95 /min Erika Joanie COLD ROLLING SUPERVISOR Work Phone: [employer].; [facility]. Comment on above: Pattern: Regular 02-15-2015 15:21-0400 Systolic blood pressure 129 mm[Hg] Erika Joanie COLD ROLLING SUPERVISOR Work Phone: [employer]; [facility]. Comment on above: Patient Position: Sitting; Cuff Location : Left Arm; Cuff Size: Standard 11-21-2014 08:45-0400 Body height 165.1 cm Jim Thornton MD Work Phone: [employer]; [employer]. 11-21-2014 08:45-0400 Body mass index (BMI) [Ratio] 23.96 kg/m2 Jim Thornton MD Work Phone: [employer]; [employer]. 11-21-2014 08:45-0400 Body surface area Derived from formula 1.72 m2 Jim Thornton MD Work Phone: [employer]; [employer]. 11-21-2014 08:45-0400 Body temperature 98.7 [degF] Jim Thornton MD Work Phone: [employer]; [employer]. Comment on above: Method: Tympanic 11-21-2014 08:45-0400 Body weight 65.32 kg Jim Thornton MD Work Phone: [employer]; [employer]. 11-21-2014 08:45-0400 Diastolic blood pressure 62 mm[Hg] Jim Thornton MD Work Phone: [employer]; [employer]. Comment on above: Patient Position: Sitting; Cuff Location : Left Arm; Cuff Size: Standard 11-21-2014 08:45-0400 Heart rate 61 /min Jim Thornton MD Work Phone: [employer]; [employer]. Comment on above: Pattern: Regular 11-21-2014 08:45-0400 Systolic blood pressure 112 mm[Hg] Jim Thornton MD Work Phone: [employer]; [employer]. Comment on above: Patient Position: Sitting; Cuff Location : Left Arm; Cuff Size: Standard 09-01-2014 11:40-0400 Body temperature 98.1 [degF] Jim Thornton MD Work Phone: [employer].; [facility]. Comment on above: Method: Tympanic 09-01-2014 11:40-0400 Body weight 68.49 kg Jim Thornton MD Work Phone: [employer].; [facility]. 09-01-2014 11:40-0400 Diastolic blood pressure 71 mm[Hg] Jim Thornton MD Work Phone: [employer].; [facility]. Comment on above: Patient Position: Sitting; Cuff Location : Right Arm; Cuff Size: Standard 09-01-2014 11:40-0400 Heart rate 72 /min Jim Thornton MD Work Phone: [facility].; [facility]. Comment on above: Pattern: Regular 09-01-2014 11:40-0400 Systolic blood pressure 111 mm[Hg] Jim Thornton MD Work Phone: [employer].; [facility]. Comment on above: Patient Position: Sitting; Cuff Location : Right Arm; Cuff Size: Standard 07-08-2014 10:53-0500 Body height 165.1 cm [facility] Work Phone: [facility].; [facility]. 07-08-2014 10:53-0500 Body mass index (BMI) [Ratio] 24.13 kg/m2 [facility] Work Phone: [employer].; [employer] 07-08-2014 10:53-0500 Body surface area Derived from formula 1.73 m2 [facility] Work Phone: [employer].; [employer] 07-08-2014 10:53-0500 Body temperature 99.2 [degF] [facility] Work Phone: [employer].; [facility]. Comment on above: Method: Tympanic 07-08-2014 10:53-0500 Body weight 65.77 kg Erika Nair LPN Work Phone: [employer].; [facility]. 07-08-2014 10:53-0500 Diastolic blood pressure 56 mm[Hg] Erika Wigginsy COLD ROLLING SUPERVISOR Work Phone: [employer].; [facility]. Comment on above: Patient Position: Sitting; Cuff Location : Left Arm; Cuff Size: Standard 07-08-2014 10:53-0500 Heart rate 65 /min Erika Nair LPN Work Phone: [employer]; [employer]. Comment on above: Pattern: Regular 07-08-2014 10:53-0500 Systolic blood pressure 99 mm[Hg] Erika Wigginsy COLD ROLLING SUPERVISOR Work Phone: [employer].; [facility]. Comment on above: Patient Position: Sitting; Cuff Location : Left Arm; Cuff Size: Standard 07-05-2014 09:08-0500 Body temperature 99.8 [degF] Erika Nair LPN Work Phone: [employer].; [facility]. Comment on above: Method: Tympanic 06-29-2014 10:44-0500 Body height 165.1 cm Erika Nair LPN Work Phone: [employer].; [employer] 06-29-2014 10:44-0500 Body mass index (BMI) [Ratio] 24.13 kg/m2 Erika Joanie COLD ROLLING SUPERVISOR Work Phone: [employer].; [employer] 06-29-2014 10:44-0500 Body surface area Derived from formula 1.73 m2 Erika Joanie COLD ROLLING SUPERVISOR Work Phone: [employer]; [employer] 06-29-2014 10:44-0500 Body weight 65.77 kg Erika Joanie COLD ROLLING SUPERVISOR Work Phone: [facility].; [facility] 06-29-2014 10:44-0500 Diastolic blood pressure 61 mm[Hg] Erika Joanie COLD ROLLING SUPERVISOR Work Phone: [facility].; [facility]. Comment on above: Patient Position: Sitting; Cuff Location : Left Arm; Cuff Size: Standard 06-29-2014 10:44-0500 Heart rate 72 /min Erika Joanie COLD ROLLING SUPERVISOR Work Phone: [facility].; [facility]. Comment on above: Pattern: Regular 06-29-2014 10:44-0500 Systolic blood pressure 135 mm[Hg] Erika Joanie COLD ROLLING SUPERVISOR Work Phone: [facility].; [facility]. Comment on above: Patient Position: Sitting; Cuff Location : Left Arm; Cuff Size: Standard 06-27-2014 09:14-0500 Body weight 65.77 kg Erikaquinn Wigginsy COLD ROLLING SUPERVISOR Work Phone: [facility].; [facility]. 06-27-2014 09:14-0500 Diastolic blood pressure 68 mm[Hg] Erika Joanie COLD ROLLING SUPERVISOR Work Phone: [facility].; [facility]. Comment on above: Patient Position: Sitting; Cuff Location : Left Arm; Cuff Size: Standard 06-27-2014 09:14-0500 Heart rate 75 /min Erika Joanie COLD ROLLING SUPERVISOR Work Phone: [facility].; [facility]. Comment on above: Pattern: Regular 06-27-2014 09:14-0500 Systolic blood pressure 118 mm[Hg] Erika Joanie COLD ROLLING SUPERVISOR Work Phone: [facility].; [facility]. Comment on above: Patient Position: Sitting; Cuff Location : Left Arm; Cuff Size: Standard 05-16-2014 14:02-0500 Body height 165.1 cm Erika Joanie COLD ROLLING SUPERVISOR Work Phone: [employer].; [facility]. 05-16-2014 14:02-0500 Body mass index (BMI) [Ratio] 23.8 kg/m2 Erika Nair LPN Work Phone: [employer].; [facility]. 05-16-2014 14:02-0500 Body surface area Derived from formula 1.72 m2 Erika Nair LPN Work Phone: [facility].; [facility]. 05-16-2014 14:02-0500 Body weight 64.86 kg Erika Nair LPN Work Phone: [facility].; [facility]. 05-16-2014 14:02-0500 Diastolic blood pressure 72 mm[Hg] Erika Nair LPN Work Phone: [employer]; [facility]. Comment on above: Patient Position: Sitting; Cuff Location : Left Arm; Cuff Size: Standard 05-16-2014 14:02-0500 Heart rate 70 /min Erika Nair LPN Work Phone: [employer]; [facility]. Comment on above: Pattern: Regular 05-16-2014 14:02-0500 Systolic blood pressure 126 mm[Hg] Erika Nair LPN Work Phone: [employer]; [facility]. Comment on above: Patient Position: Sitting; Cuff Location : Left Arm; Cuff Size: Standard 04-27-2013 16:00-0500 Body height 167.64 cm Georgina Sandy RN Work Phone: [employer]; [facility]. 04-27-2013 16:00-0500 Body mass index (BMI) [Ratio] 23.89 kg/m2 Georgina Sandy RN Work Phone: [facility].; [facility] 04-27-2013 16:00-0500 Body surface area Derived from formula 1.76 m2 Georgina Sandy RN Work Phone: [facility] [employer] 04-27-2013 16:00-0500 Body weight 67.13 kg Georgina Sandy RN Work Phone: [facility] [employer] 04-27-2013 16:00-0500 Diastolic blood pressure 77 mm[Hg] Georgina Sandy RN Work Phone: [facility] [employer]. Comment on above: Patient Position: Sitting; Cuff Location : Left Arm; Cuff Size: Standard 04-27-2013 16:00-0500 Heart rate 77 /min Georgina Sandy RN Work Phone: [facility] [employer]. Comment on above: Pattern: Regular 04-27-2013 16:00-0500 Systolic blood pressure 123 mm[Hg] Georgina Sandy RN Work Phone: [facility] [employer]. Comment on above: Patient Position: Sitting; Cuff Location : Left Arm; Cuff Size: Standard 12-18-2011 13:36-0400 Body height 167.64 cm Jim Thornton MD Work Phone: [facility] [employer] 12-18-2011 13:36-0400 Body mass index (BMI) [Ratio] 22.76 kg/m2 Jim Thornton MD Work Phone: [facility] [employer] 12-18-2011 13:36-0400 Body surface area Derived from formula 1.72 m2 Jim Thornton MD Work Phone: [employer].; [employer] 12-18-2011 13:36-0400 Body weight 63.96 kg Jim Thornton MD Work Phone: [employer] 12-18-2011 13:36-0400 Diastolic blood pressure 67 mm[Hg] Jim Thornton MD Work Phone: [employer].; [facility]. Comment on above: Patient Position: Sitting; Cuff Location : Left Arm; Cuff Size: Standard 12-18-2011 13:36-0400 Heart rate 60 /min Jim Thornton MD Work Phone: [employer].; [facility]. Comment on above: Pattern: Regular 12-18-2011 13:36-0400 Systolic blood pressure 118 mm[Hg] Jim Thornton MD Work Phone: [employer].; [facility]. Comment on above: Patient Position: Sitting; Cuff Location : Left Arm; Cuff Size: Standard 11-15-2011 14:05-0400 Body height 167.64 cm Georgina Sandy RN Work Phone: [employer].; [facility]. 11-15-2011 14:05-0400 Body mass index (BMI) [Ratio] 23.4 kg/m2 Georgina Sandy RN Work Phone: [employer].; [facility]. 11-15-2011 14:05-0400 Body surface area Derived from formula 1.74 m2 Georgina Sandy RN Work Phone: [facility].; [facility] 11-15-2011 14:05-0400 Body weight 65.77 kg Georgina Sandy RN Work Phone: [employer].; [facility]. 11-15-2011 14:05-0400 Diastolic blood pressure 71 mm[Hg] Georgina Sadny RN Work Phone: [facility].; [facility]. Comment on above: Patient Position: Sitting; Cuff Location : Left Arm; Cuff Size: Standard 11-15-2011 14:05-0400 Heart rate 59 /min Georgina Sandy RN Work Phone: [facility].; [facility]. Comment on above: Pattern: Regular 11-15-2011 14:05-0400 Systolic blood pressure 121 mm[Hg] Georgina Sandy RN Work Phone: [employer].; [facility]. Comment on above: Patient Position: Sitting; Cuff Location : Left Arm; Cuff Size: Standard 08-15-2011 09:42-0400 Body height 167.64 cm Jim Thornton MD Work Phone: [employer].; [facility]. 08-15-2011 09:42-0400 Body mass index (BMI) [Ratio] 23.44 kg/m2 Jim Thornton MD Work Phone: [employer].; [employer] 08-15-2011 09:42-0400 Body surface area Derived from formula 1.75 m2 Jim Thornton MD Work Phone: [employer].; [facility]. 08-15-2011 09:42-0400 Body weight 65.86 kg Jim Thornton MD Work Phone: [employer]. 08-15-2011 09:42-0400 Diastolic blood pressure 77 mm[Hg] Jim Thornton MD Work Phone: [employer].; [facility]. Comment on above: Patient Position: Sitting; Cuff Location : Left Arm; Cuff Size: Standard 08-15-2011 09:42-0400 Heart rate 69 /min Jim Thornton MD Work Phone: [employer].; [facility]. Comment on above: Pattern: Regular 08-15-2011 09:42-0400 Systolic blood pressure 130 mm[Hg] Jim Thornton MD Work Phone: [facility].; [facility]. Comment on above: Patient Position: Sitting; Cuff Location : Left Arm; Cuff Size: Standard 01-09-2011 15:14-0400 Body height 167.64 cm Jim Thornton MD Work Phone: [employer]; [employer]. 01-09-2011 15:14-0400 Body mass index (BMI) [Ratio] 21.4 kg/m2 Jim Thornton MD Work Phone: [employer]; [facility]. 01-09-2011 15:14-0400 Body surface area Derived from formula 1.68 m2 Jim Thornton MD Work Phone: [employer]; [employer]. 01-09-2011 15:14-0400 Body temperature 98.7 [degF] Jim Thornton MD Work Phone: [employer]; [facility]. Comment on above: Method: Tympanic 01-09-2011 15:14-0400 Body weight 60.15 kg Jim Thornton MD Work Phone: [employer]; [employer]. 01-09-2011 15:14-0400 Diastolic blood pressure 66 mm[Hg] Jim Thornton MD Work Phone: [employer]; [facility]. Comment on above: Patient Position: Sitting; Cuff Location : Left Arm; Cuff Size: Standard 01-09-2011 15:14-0400 Heart rate 91 /min Jim Thornton MD Work Phone: [employer]; [facility]. Comment on above: Pattern: Regular 01-09-2011 15:14-0400 Systolic blood pressure 125 mm[Hg] Jim Thornton MD Work Phone: [employer]; [facility]. Comment on above: Patient Position: Sitting; Cuff Location : Left Arm; Cuff Size: Standard 01-03-2011 16:50-0400 Body height 167.64 cm Georgina Sandy RN Work Phone: [employer]; [employer]. 01-03-2011 16:50-0400 Body mass index (BMI) [Ratio] 21.14 kg/m2 Georgina Sandy RN Work Phone: [employer]; [facility]. 01-03-2011 16:50-0400 Body surface area Derived from formula 1.67 m2 Georgina Sandy RN Work Phone: [employer] 01-03-2011 16:50-0400 Body weight 59.42 kg Georgina Sandy RN Work Phone: [employer] 01-03-2011 16:50-0400 Diastolic blood pressure 72 mm[Hg] Georgina Sandy RN Work Phone: [employer].; [facility]. Comment on above: Patient Position: Sitting; Cuff Location : Left Arm; Cuff Size: Standard 01-03-2011 16:50-0400 Heart rate 63 /min Georgina Sandy RN Work Phone: [employer]. Comment on above: Pattern: Regular 01-03-2011 16:50-0400 Systolic blood pressure 110 mm[Hg] Georgina Sandy RN Work Phone: [employer] [facility]. Comment on above: Patient Position: Sitting; Cuff Location : Left Arm; Cuff Size: Standard 12-21-2010 14:55-0400 Body height 167.64 cm Georgina Sandy RN Work Phone: [employer]. 12-21-2010 14:55-0400 Body mass index (BMI) [Ratio] 21.14 kg/m2 Georgina Sandy RN Work Phone: [employer]. 12-21-2010 14:55-0400 Body surface area Derived from formula 1.67 m2 Georgina Sandy RN Work Phone: [employer]. 12-21-2010 14:55-0400 Body weight 59.42 kg Georgina Sandy RN Work Phone: [employer]. 12-21-2010 14:55-0400 Diastolic blood pressure 62 mm[Hg] Georgina Sandy RN Work Phone: [employer]. Comment on above: Patient Position: Sitting; Cuff Location : Left Arm; Cuff Size: Standard 12-21-2010 14:55-0400 Heart rate 65 /min Georgina Sandy RN Work Phone: [employer]. Comment on above: Pattern: Regular 12-21-2010 14:55-0400 Systolic blood pressure 111 mm[Hg] Georgina Sandy RN Work Phone: [employer]. Comment on above: Patient Position: Sitting; Cuff Location : Left Arm; Cuff Size: Standard 12-11-2010 08:16-0400 Body height 167.64 cm [employer] Work Phone: [employer]. 12-11-2010 08:16-0400 Body mass index (BMI) [Ratio] 21.31 kg/m2 [employer] Work Phone: [employer]. 12-11-2010 08:16-0400 Body surface area Derived from formula 1.68 m2 [employer] Work Phone: [employer]. 12-11-2010 08:16-0400 Body weight 59.88 kg [employer] COLD ROLLING SUPERVISOR Work Phone: [employer]. 12-11-2010 08:16-0400 Diastolic blood pressure 73 mm[Hg] Erika Joanie COLD ROLLING SUPERVISOR Work Phone: [employer]. Comment on above: Patient Position: Sitting; Cuff Location : Left Arm; Cuff Size: Standard 12-11-2010 08:16-0400 Heart rate 64 /min [employer] COLD ROLLING SUPERVISOR Work Phone: [employer]. Comment on above: Pattern: Regular 12-11-2010 08:16-0400 Systolic blood pressure 132 mm[Hg] Erika Nair LPN Work Phone: [employer] [facility]. Comment on above: Patient Position: Sitting; Cuff Location : Left Arm; Cuff Size: Standard 11-01-2010 09:21-0400 Body height 167.64 cm Georgina Sandy RN Work Phone: [employer]. 11-01-2010 09:21-0400 Body mass index (BMI) [Ratio] 21.31 kg/m2 Georgina Sandy RN Work Phone: [employer]. 11-01-2010 09:21-0400 Body surface area Derived from formula 1.68 m2 Georgina Sandy RN Work Phone: [employer]. 11-01-2010 09:21-0400 Body weight 59.88 kg Georgina Sandy RN Work Phone: [employer] 11-01-2010 09:21-0400 Diastolic blood pressure 69 mm[Hg] Georgina Sandy RN Work Phone: [employer]. Comment on above: Patient Position: Sitting; Cuff Location : Left Arm; Cuff Size: Standard 11-01-2010 09:21-0400 Heart rate 73 /min Georgina Sandy RN Work Phone: [employer]. Comment on above: Pattern: Regular 11-01-2010 09:21-0400 Systolic blood pressure 106 mm[Hg] Georgina Sandy RN Work Phone: [employer] [facility]. Comment on above: Patient Position: Sitting; Cuff Location : Left Arm; Cuff Size: Standard Encounters Encounter Date Encounter Type Care Provider Facility Start: 12-30-2024 End: 12-30-[address] Jim Thornton MD Work Phone: -[facility] Start: 12-30-2024 End: 12-30-[address] Randy Kearns MD -[facility] Work Phone: Start: 12-21-2024 End: 12-21-[address] Randy Kearns MD -[facility] Work Phone: Start: 12-21-2024 End: 12-21-[address] Jim Thornton MD Work Phone: -[facility] Start: 12-14-2024 End: 12-14-[address] London Ingram MD -[facility] Start: 12-14-2024 End: 12-14-[address] Jim Thornton MD Work Phone: -[facility] Start: 12-07-2024 End: 12-07-[address] Randy Kearns MD -[facility] Work Phone: Start: 12-07-2024 End: 12-07-[address] Jim Thornton MD Work Phone: -[facility] Start: 12-06-2024 End: 12-06-2024 Telephone follow-up Jim [facility] Start: 12-03-2024 End: 12-03-2024 Emergency department patient visit Dr. Jim Thornton MD Work Phone: -Emergency Department Work Phone: Start: 12-03-2024 End: 12-03-2024 Periodic preventive med est patient 18-39 yrs Jim Thornton MD Work [facility]: [facility] Start: 12-03-2024 End: 12-03-2024 Physical examination Gabriella Duvall MA [facility] Start: 11-29-2024 End: 11-29-2024 Office outpatient visit 15 minutes Jim Thornton MD Work Phone: [employer] Start: 11-22-2024 End: 11-22-2024 Orders Jim Thornton MD Work Phone: [facility] Start: 03-05-2024 End: 03-05-2024 Patient encounter status Jim Thornton MD Work Phone: [employer]; [facility]. Start: 03-05-2024 End: 03-05-2024 Periodic preventive med est patient 18-39 yrs Jim Thornton MD Work Phone: [facility] Start: 02-20-2024 End: 02-20-2024 Orders Jim Thornton MD Work Phone: [facility] Start: 01-28-2024 End: 01-28-2024 Orders Jim Thornton MD Work Phone: [employer] [facility] Start: 07-06-2023 Telephone encounter Titi puente APRN.ENGINEERING OPERATOR Work Phone: [facility] Comment on above: Results Start: 07-05-2023 End: 07-05-2023 ambulatory Facility:[facility] Start: 07-05-2023 End: 07-05-2023 Patient encounter procedure Delmar Leggett APRN.ENGINEERING OPERATOR Work Phone: [facility] Comment on above: Sore throat (Primary Dx); URI, acute Start: 01-29-2023 End: 01-29-2023 Office outpatient visit 15 minutes Jim Thornton MD Work Phone: [employer] [facility] Start: 11-11-2022 End: 11-11-2022 Office outpatient visit 15 minutes Jim Thornton MD Work Phone: [facility] [employer] Start: 10-22-2022 End: 10-22-2022 Office outpatient visit 10 minutes Jim Thornton MD Work Phone: [facility] [employer] Start: 06-20-2021 End: 06-20-2021 Orders Jim Thornton MD Work Phone: [facility] [employer] [employer] [facility] Start: 06-20-2021 End: 06-20-2021 [facility] Start: 06-15-2021 End: 06-15-2021 Orders Jim Thornton MD Work Phone: [employer] Start: 06-15-2021 End: 06-15-2021 [facility] Start: 06-14-2021 End: 06-14-2021 Orders Jim Thornton MD Work Phone: [facility] [employer] [facility] Start: 06-13-2021 End: 06-13-2021 Office outpatient visit 15 minutes Jim Thornton MD Work Phone: [employer] Start: 02-07-2020 End: 02-07-2020 Nursing evaluation of patient and report Jim Thornton MD Work Phone: [employer] [facility] Start: 02-01-2020 End: 02-01-2020 Telephone follow-up Jim Thornton MD Work Phone: [facility] [employer] [facility] Start: 06-28-2019 End: 06-28-2019 Office outpatient visit 15 minutes Jim Thornton MD Work Phone: [facility] Start: 11-03-2017 End: 11-03-2017 Patient encounter procedure Jim Thornton MD Work Phone: [facility] [employer] [facility] Start: 08-26-2017 End: 08-26-2017 Office outpatient visit 15 minutes Jim Thornton MD Work Phone: [facility] Start: 08-28-2015 End: 08-28-2015 Patient encounter procedure Jim Thornton MD Work Phone: [facility] Start: 08-23-2015 End: 08-23-2015 Patient encounter procedure Jim Thornton MD Work Phone: [facility] Start: 08-14-2015 End: 08-14-2015 Patient encounter procedure Jim Thornton MD Work Phone: [facility] Start: 07-26-2015 End: 07-26-2015 Orders Jim Thornton MD Work Phone: [facility] Start: 07-24-2015 End: 07-24-2015 Historical Summary Jim Thornton MD Work Phone: [facility] [employer] Start: 07-03-2015 End: 07-03-2015 Patient encounter procedure Jim Thornton MD Work Phone: [facility] Start: 06-08-2015 End: 06-08-2015 Orders Jim Thornton MD Work Phone: [facility] Start: 06-05-2015 End: 06-06-2015 Patient encounter procedure Jim Thornton MD Work Phone: [facility] Start: 05-08-2015 End: 05-08-2015 Patient encounter procedure Jim Thornton MD Work Phone: [facility] Start: 04-12-2015 End: 04-12-2015 Patient encounter procedure Jim Thornton MD Work Phone: [facility] Start: 03-15-2015 End: 03-15-2015 Patient encounter procedure Jim Thornton MD Work Phone: [facility] [employer] [employer] [facility] Start: 02-15-2015 End: 02-16-2015 Patient encounter procedure Jim Thornton MD Work Phone: [facility] [employer] [facility] Start: 11-21-2014 End: 11-21-2014 Patient encounter procedure Jim Thornton MD Work Phone: [facility] Start: 09-01-2014 End: 09-01-2014 Patient encounter procedure Jim Thornton MD Work Phone: [facility] [employer] Start: 07-08-2014 End: 07-08-2014 Historical Summary Jim Thornton MD Work Phone: [employer] [facility] Start: 07-08-2014 End: 07-08-2014 Patient encounter procedure Jim Thornton MD Work Phone: [facility]. Start: 07-05-2014 End: 07-05-2014 Orders Jim Thornton MD Work Phone: [facility]. Start: 07-05-2014 End: 07-05-2014 Historical Summary Jim Thornton MD Work Phone: [employer] [facility] Start: 06-29-2014 End: 06-29-2014 Patient encounter procedure Jim Thornton MD Work Phone: [facility] [employer] [facility] Start: 06-28-2014 End: 06-28-2014 Historical Summary Jim Thornton MD Work Phone: [employer] [facility] Start: 06-27-2014 End: 06-27-2014 Patient encounter procedure Jim Thornton MD Work Phone: [facility] [employer] [facility] Start: 05-16-2014 End: 05-16-2014 Patient encounter procedure Jim Thornton MD Work Phone: [facility] [employer] [facility] Start: 08-22-2013 End: 08-22-2013 Medication Jim Thornton MD Work Phone: [facility] [employer] [employer] [facility] Start: 04-27-2013 End: 04-27-2013 Patient encounter procedure Jim Thornton MD Work Phone: [facility] [employer] [facility] Start: 04-27-2013 End: 04-27-2013 Routine gynecological examination Jim Thornton MD Work Phone: [employer]; [facility]. Start: 12-24-2011 End: 12-24-2011 Medication Jim Thornton MD Work Phone: [employer] [facility] Start: 12-18-2011 End: 12-18-2011 Patient encounter procedure Jim Thornton MD Work Phone: [employer] [facility] Start: 11-15-2011 End: 11-15-2011 Patient encounter procedure Jim Thornton MD Work Phone: [facility] [employer] [facility] Start: 11-15-2011 End: 11-15-2011 Routine gynecological examination Jim Thornton MD Work Phone: [employer]; [facility]. Start: 11-14-2011 End: 11-14-2011 Historical Summary Jim Thornton MD Work Phone: [employer] [facility] Start: 08-15-2011 End: 08-15-2011 Patient encounter procedure Jim Thornton MD Work Phone: [employer] [facility] Start: 01-09-2011 End: 01-09-2011 Patient encounter procedure Jim Thornton MD Work Phone: [facility] [employer] [facility] Start: 01-03-2011 End: 01-03-2011 Patient encounter procedure Jim Thornton MD Work Phone: [facility] [employer] [facility] Start: 12-21-2010 End: 12-21-2010 Patient encounter procedure Jim Thornton MD Work Phone: [employer] [facility] Start: 12-11-2010 End: 12-11-2010 Patient encounter procedure Jim Thornton MD Work Phone: [employer] [facility] Start: 11-01-2010 End: 11-01-2010 Patient encounter procedure Jim Thornton MD Work Phone: [facility] [employer] [facility] Start: 11-01-2010 End: 11-01-2010 Routine gynecological examination Georgina Sandy RN Work Phone: [employer]; [facility]. Start: 03-09-2010 End: 03-13-2010 Orders Jim Thornton MD Work Phone: [employer] Follow-up encounter Nadia rosario PA-C Work Phone: [employer]; [facility]. Physical examination Nadia SMITH-C Work Phone: [facility] Routine gynecologica l examination Ragini Chauhan COLD ROLLING SUPERVISOR [facility].; [facility]. Procedures Date Procedure Procedure Detail Performing [...] DTaP,Tdap,Td Vaccine (2 - Td or Tdap) [facility] Start: 12-14-2024 Plain x-ray of hand Hand Min 3 Views [facility] Start: 12-14-2024 XR Hand GE 3 Views [facility] Start: 12-03-2024 [facility] Start: 12-03-2024 Smpl repair scalp/neck/ax/genit/trun k 2.6-7.5cm RPR S/N/AX/GEN/TRNK2.6-7.5C M [facility] Start: 12-03-2024 Patient encounter procedure Medical; PHYSICAL - AWV [facility]. Start: 03-Dec-2024 10:00-04:00 NEAL Koehler Appointment Request [facility]. Start: 11-22-2024 Comprehensive metabo lic panel CMP w/ GFR* ([id number]) Start: 22-Nov-2024 07:59-04:00 Request [facility] Start: 11-22-2024 Lipid panel LIPID PANEL ([id number]) Start: 22-Nov-2024 07:59-04:00 Request [facility] Start: 03-05-2024 Patient encounter procedure Medical; PHYSICAL - AWV, pap [facility]. Start: 05-Mar-2024 09:00-04:00 NEAL Koehler Appointment Request [facility] Start: 03-05-2024 Cytp c/v auto thin l yr prepj scr mnl rescr phys ThinPrep Pap Test AND HPV mRNA ([id number]) ([id number]) Start: 05-Mar-2024 07:51-04:00 Request [facility] [employer] [facility]; [facility] Start: 02-20-2024 Comprehensive metabo lic panel CMP w/ GFR* ([id number]) Start: 20-Feb-2024 Request [facility] [employer] [facility]; [facility]. Start: 02-20-2024 Lipid panel LIPID PANEL ([id number]) Start: 20-Feb-2024 Request [facility] [employer] [facility]; [facility]. Start: 02-20-2024 Nursing evaluation o f patient and report Medical; Nurse visit - fasting labs RJB [facility] Start: 20-Feb-2024 09:00-04:00 NURSE, FLOAT Appointment Request [facility] Start: 07-05-2023 End: 07-19-2023 COVID & INFLUENZA A/B & RSV NAAT, ROUTINE COVID & INFLUENZA A/B & RSV NAAT, ROUTINE Microbiology Routine URI, acute Expected: 07/05/2023, Expires: 07/19/[address] [facility] Work Phone: Comment on above: Expected: 07/05/2023 , Expires: 07/19/2023 Start: 05-26-2023 Depression Assessment Depression Ass essment [facility] Start: 01-24-2023 Influenza vaccination Influenza Vacc ine (#1) [facility] Start: 2018 Screening for malign ant neoplasm of cervix HPV Testing [facility] Start: 12-21-2010 Provider Instruction s for Treatment Discharge instructions Indication: Asthma, mild intermittent, well-controlled Start: 21-Dec-2010 Instruction Type: Provider Instructions for Treatment [employer]; [facility]. Start: 2009 Screening for malign ant neoplasm of cervix Pap Testing [facility] Start: 2006 Hepatitis C screening Hepatitis C Il waldo [facility] Start: 2006 HIV screening HIV Screening [facility] Start: 1988 Covid-19 Vaccine (#1) Covid-19 Vacci ne (#1) [facility] Start: 1988 Hepatitis B Vaccine (1 of 3 - 3-dose series) Hepatitis B Vaccine (1 of 3 - 3-dose series) [facility] Patient Education ED Laceration Extremity [facility] Work Phone: [employer] so d phos (bulk) 100 % powder Ordered: 15-Aug-2011 NEAL Perez [facility] [employer] so d phos (bulk) 100 % powder Ordered: 29-Nov-2024 NEAL Koehler [facility] Immunizations Immunization Date Immunization Notes Care Provider Fa [facility] 01-29-2020 tetanus toxoid, redu chaya diphtheria toxoid, and acellular pertussis vaccine, adsorbed Dr. Jim Thornton MD Work Phone: [facility] 02-19-2018 influenza, injectabl e, quadrivalent, preservative free Dr. Jim Thornton MD Work Phone: [facility] 02-19-2018 influenza virus vaccine, unspecified formulation Delmar Leggett APRN.CNP Work Phone: [facility] 12-11-2010 pneumococcal polysaccharide vaccine, 23 valent Jim Thornton MD Work Phone: [facility] Comment on above: Site: Deltoid (Left) VIS Given: * Pneumococcal Polysaccharide (PPSV23) (02/28/09) 03-09-2010 IMMUNIZATION ADMIN ([id number]) Jim Thornton MD Work Phone: [facility] [facility] [facility] Work Phone: 07-04-2009 tetanus toxoid, redu chaya diphtheria toxoid, and acellular pertussis vaccine, adsorbed Jim Thornton MD Work Phone: [facility] 01-12-2001 hepatitis B vaccine, pediatric or pediatric/adolescent dosage Jim Thornton MD Work Phone: [facility].; [facility] 11-18-2000 measles, mumps and rubella virus vaccine Jim Thornton MD Work Phone: [facility].; [facility] 01-02-1994 diphtheria, tetanus toxoids and pertussis vaccine Jim Thornton MD Work Phone: [facility].; [facility] 01-02-1994 trivalent poliovirus vaccine, live, oral Jim Thornton MD Work Phone: [facility].; [facility] 10-04-1993 diphtheria, tetanus toxoids and pertussis vaccine Jim Thornton MD Work Phone: [facility].; [facility] 10-04-1993 trivalent poliovirus vaccine, live, oral Jim Thornton MD Work Phone: [facility].; [facility] 02-16-1993 haemophilus influenz ae type b vaccine, PRP-T conjugate Jim Thornton MD Work Phone: [facility].; [facility] 02-11-1990 measles, mumps and rubella virus vaccine Jim Thornton MD Work Phone: [facility].; [facility] 1988 diphtheria, tetanus toxoids and pertussis vaccine Jim Thornton MD Work Phone: [facility].; [facility] 1990 trivalent poliovirus vaccine, live, oral Jim Thornton MD Work Phone: [facility].; [facility] 1988 diphtheria, tetanus toxoids and pertussis vaccine Jim Thornton MD Work Phone: [facility]. 1990 trivalent poliovirus vaccine, live, oral Jim Thornton MD Work Phone: [facility]. 1990 diphtheria, tetanus toxoids and pertussis vaccine Jim Thornton MD Work Phone: [facility] 1990 trivalent poliovirus vaccine, live, oral Jim Thornton MD Work Phone: [facility].; [employer] [facility] Payers Date Payer Category Payer Self-pay 2023 Unknown [id number] 2015 Unknown [id number] 1988 Unknown [id number] 1988 Unknown [id number] [id number] Unknown [id number] Unknown [id number] 2.16.8 [id number] Unknown [id number] [id number] [id number] Unknown [id number] 2.16.8 [id number] Unknown [id number] 2.16.8 [id number] Unknown [id number] 2.16.8 [id number] Social History Date Type Detail Facility Start: 07-05-2023 End: 12-07-2024 Tobacco smoking status NHIS Never smoked tobacco [facility] History of tobacco use Passive smoker [facility] Start: 07-05-2023 Tobacco use and exposure Smokeless tobacco non-user [facility] Start: 07-05-2023 History of Social function [facility] Start: 07-05-2023 Tobacco use panel [facility] Start: 1990 Sex Assigned At Not on file [facility] Alcohol Use: Alcohol Use: ; O ccasional alcohol use. [facility]; [facility] Primary Contro l Method: Primary Control Method: ; Intrauterine device. [facility]; [facility] Tobacco Use: Tobacco Use: ; N ever smoker. [facility]; [facility] Start: 1990 Female [facility] Occasional alcohol use [facility]; [facility] Work Phone: [facility]uterine device [facility]; [facility] Work Phone: Start: 01-29-2020 Lives [facility] Clinical Notes 07-05-2023 to 12-07-2024 Note Date & Type Note Facility 12-07-2024 Evaluation note Diagnosis Onset Date Resolution Abrasion of left index finger inactive December 07, 2024 2:21pm Laceration of left middle finger inactive December 07, 2024 2:21pm Open fracture of phalanx of left ring finger inactive December 07, 2024 2:21pm [facility] Work Phone: 1(764) 830-700007-15-2025 Evaluation note* Diagnosis Onset Date Resolution Status [...] ring finger inactive December 14, 2024 12:53pm [facility] Work Phone: 1(848) 980-592907-15-2025 Evaluation note* Diagnosis Onset Date Resolution Status [...] ring finger inactive December 21, 2024 1:47pm [facility] Work Phone: 1(992) 662-181707-11-2025 Radiology Diagnostic study note [facility] Imaging Services [address] [place], [place] [address] Hand Min 3 Views MR#: [id number] Acct: [id number] Name: EFRAIN OLGUIN Rep #: [id number] : 1990 F 34 From: Josesito Guillermo MD PCP: Dr. Jim Thornton MD Status: R EG ER Study:Hand Min 3 Views Date of Exam: 04/19 Exam# [id number] Ordering Dr: Tamara Hills MD PROCEDURE: HAND [...] the 4th distal phalanx base. Reading Location: [id number] CC: Dr. Jim Thornton MD; Dr. Tony Hills MD ~ Mission Coordinator: Signed [facility]02-11-2024 Miscellaneous Notes* Telephone Encounter - Cody [...] breath go to [facility] NoteHNO ID: [id number] Author: DELMAR LEGGETT APRN.TREV Service: ? Author [...] Patient agreeable to treatment plan. Delmar Leggett APRN.[facility]02-10-2024 History of Present illness Narrative* Delmar Leggett APRN.[facility] - 07/05/2023 9:27 AM EST CC: Patient [...] plan. Delmar Leggett APRN.TREV [facility] Diagnosis Sore throat- Primary Acute pharyngitis URI, acute Acute upper respiratory infections of unspecified site documented in this [facility] noteNo assessment information availableWDayton Osteopathic Hospital Work Phone: Hospital Discharge instructionsAdditional Instructions You can shower but do not submerge underwater. Pat dry, apply bacitracin and a bandage. Follow-up with the plastic surgeon to have it rechecked. I prescribed antibiotics since there is a broken bone. If you have any signs of infection like significant redness, swelling, pus, increased fever or pain please be seen immediately.[facility] Work Phone: Reason for referral (narrative)No reason for referral information availableWDayton Osteopathic Hospital Work Phone: Summary Purpose Family History [...] Do you have a Healthcare Power of Emergency Room Rn? No December 03, 2024 7:03pm Health Concerns Infection Onset Date Last Indicated Resolved Time Influenza 07/05/2023 07/05/2023 Infection Onset Date Last Indicated Resolved Time COVID-19 Rule-Out 07/05/2023 07/05/2023 Chief Complaint and Reason for Visit Chief Complaint Admit Date [facility] December 03, 2024 5:14 pm Chief Complaint Admit Date [facility] December 03, 2024 5:14 pm ED FOLLOW [...] and content) DATE CREATED AUTHOR 06/21/2021 [facility] DATE CREATED AUTHOR AUTHOR'S ORGANIZ ATION 07/07/[address] [facility] DATE CREATED AUTHOR AUTHOR'S ORGANIZ ATION 11/24/2024 [facility] DATE CREATED AUTHOR AUTHOR'S ORGANIZ ATION 12/24/2024 [facility] Source Comments (unrecognize d section and content) In the event this informatio n is protected by the Federal Confidentiality of Alcohol and Drug Abuse Patient Records regulations: The Federal rules restrict any use of the information to criminally investigate or prosecute any alcohol or drug abuse patient.[facility] the event this information is protected by the Federal Confidentiality of Alcohol and Drug Abuse Patient Records regulations: The Federal rules restrict any use of the information to criminally investigate or prosecute any alcohol or drug abuse patient.[facility] Reason for Visit (unrecogniz ed section and [...] BE BASED ON THE PRIMARY CLINICAL RECORDS. [facility] [employer] provides no warranty or guarantee of the accuracy or completeness of information in this document.
== END | disposition home or self-care (01) ==
LOC: RAD 08:18
PROVIDERS: PCP Family Medicine; Referring Provider Surgery Plastic and Reconstructive Surgery; Visit Provider Surgery Plastic and Reconstructive Surgery
DX: S61.213A Laceration without foreign body of left middle finger without damage to nail, initial encounter (principal); S60.411A Abrasion of left index finger, initial encounter; S62.605B Fracture of unspecified phalanx of left ring finger, initial encounter for open fracture
CPT/HCPCS: 73130